=== PATIENT | male | born 1985 | race Caucasian/White ===

== ENCOUNTER → 2017-07-24 | Outpatient (CLI) | payer MEDICARE, OTHER ==
[2017-07-24 09:08] LABS: Basophils % (A) 1 %; CH 29.9; CHCM 31.5; Eosinophils # (A) 0.1 k/uL (0-0.7); Eosinophils % (A) 1 %; HCT 42.3 % (39.0-53.0); HDW 2.47; HGB 13.2 gm/dL (13.0-17.5); Luc # (Auto) 0.19; Luc % (Auto) 4; Lymphocytes # (A) 1.6 k/uL (1.0-4.8); Lymphocytes % (A) 34 %; MCH 29.9 pg (25.0-35.0); MCHC 31.3 g/dL (31.0-37.0); MCV 95.4 fL (80.0-100.0); Mean Platelet Volume 6.7; Monocytes # (A) 0.4 k/uL (0-1.0); Monocytes % (A) 8 %; Neutrophils # (A) 2.6 k/uL (1.3-7.7); Neutrophils % (A) 53 %; RBC 4.43 m/uL (4.30-5.90); RDW 14.7 % (11.5-15.5); WBC 4.9 k/uL (3.8-10.6); WBC (Perox) 4.87
[2017-07-24 11:33] LABS: ALT 70 U/L (21-72); AST 42 U/L (17-59); Alkaline Phosphatase 31 U/L (38-126); Anion Gap 6 mmol/L; Blood Urea Nitrogen 22 mg/dL (9-20); Calcium 8.7 mg/dL (8.4-10.2); Carbon Dioxide 32 mmol/L (22-30); Chloride 104 mmol/L (98-107); Cholesterol 169 mg/dL (<200); Glucose 69 mg/dL (74-99); HDL Cholesterol 23 mg/dL (40-60); Non-African American GFR(MDRD) >60 (>60 ml/min/1.73 sqM); Potassium 4.8 mmol/L (3.5-5.1); Sodium 142 mmol/L (137-145); Total Bilirubin 0.4 mg/dL (0.2-1.3); Total Protein 6.4 g/dL (6.3-8.2)
== END | disposition home or self-care (01) ==
LOC: LABWHC1 08:12
PROVIDERS: ATTEND Nurse Practitioner
DX: F31.9 Bipolar disorder, unspecified (principal); Z79.899 Other long term (current) drug therapy
CPT/HCPCS: 36415; 80053; 80061; 80164; 83036; 84439; 84443; 85025

== ENCOUNTER → 2017-11-20 | Outpatient (CLI) | payer MEDICARE, OTHER ==
--- NOTE | 2017-11-20 20:01 | ECHOF ---
Referral Reason:R06.02 Shortness of breath, R06.01 Orthopenia MEASUREMENTS -------- HEIGHT: 135.6 cm WEIGHT: 95.3 kg BP: RVIDd: 3.4 cm (< 3.3) IVSd: 1.2 cm (0.6 - 1.1) LVIDd: 3.4 cm (3.9 - 5.3) LVPWd: 1.3 cm (0.6 - 1.1) IVSs: 1.4 cm LVIDs: 3.1 cm LVPWs: 1.2 cm LA Diam: 3.2 cm (2.7 - 3.8) Ao Diam: 2.6 cm (2.0 - 3.7) AV Cusp: 1.8 cm (1.5 - 2.6) LA Diam: 3.5 cm (2.7 - 3.8) MV E Zack: 0.86 m/s MV DecT: 162 ms MV A Zack: 0.62 m/s MV E/A Ratio: 1.39 RAP: 5.00 mmHg RVSP: 14.63 mmHg FINDINGS -------- Sinus rhythm. This was a technically difficult study with suboptimal views. The left ventricular size is normal. There is mild concentric left ventricular hypertrophy. Overa ll left ventricular systolic function is low-normal with, an EF between 50 - 55 %. The right ventricle is normal in size. The left atrial size is normal. The right atrial size is normal. The aortic valve is trileaflet, and appears structurally normal. No aortic stenosis or regurgitation. Mild mitral regurgitation is present. No regurgitation noted There is no evidence of pulmonary hypertension. The right ventricular syst olic pressure, as measured by Doppler, is 14.63mmHg. The pulmonic valve was not well visualized. The aortic root size is normal. There is no pericardial effusion. CONCLUSIONS -------- 1. This was a technically difficult study with suboptimal views. 2. The left ventricular size is normal. 3. There is mild concentric left ventricular hypertrophy. 4. Overall left ventricular systolic function is low-normal with, an EF between 50 - 55 %. 5. The aortic valve is trileaflet, and appears structurally normal. No aortic stenosis or regurgitati on. 6. Mild mitral regurgitation is present. 7. No regurgitation noted 8. There is no evidence of pulmonary hypertension. 9. The right ventricular systolic pressure, as measured by Doppler, is 14.63mmHg. 10. The pulmonic valve was not well visualized. 11. The aortic root size is normal. 12. There is no pericardial effusion. [employer] SUPERVISOR: Corinna Perea RDCS
== END | disposition home or self-care (01) ==
LOC: RADECHMAIN 08:15
PROVIDERS: ATTEND Family Medicine
DX: I34.0 Nonrheumatic mitral (valve) insufficiency (principal); I51.7 Cardiomegaly
CPT/HCPCS: 93306

== ENCOUNTER 2017-11-27 09:35 | Inpatient (IN) | payer MEDICARE, OTHER ==
[2017-11-27] MEDS ORDERED: IPRATROPIUM-ALBUTEROL 3 ML NEB INHALATION STA (10:22)
[2017-11-27] MEDS ORDERED: SODIUM CHLORIDE 0.9% 1,000 ML IV STA (10:22)
[2017-11-27] MEDS ORDERED: ACETAMINOPHEN TAB 500 MG TAB PO STA (10:32)
[2017-11-27 11:01] LABS: Appearance,Urine Clear (Clear); Bilirubin,Urine Negative (Negative); Blood,Urine Negative (Negative); Color,Urine Yellow; Glucose,Urine (UA) Negative (Negative); Ketones,Urine Trace (Negative); Leukocyte Esterase,Urine Negative (Negative); Nitrite,Urine Negative (Negative); PH, Urine 5.5 (5.0-8.0); Protein,Urine Trace (Negative); Specific Gravity,Urine 1.026 (1.001-1.035)
--- NOTE | 2017-11-27 11:14 | ED ---
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 The patient has been short of breath with a cough and fever for one day. Wheezing at home. Administered an updraft. Went to [facility] and was then sent here. Pulse ox at that facility was in the low 80s as it is here. Patient presents wheezing. - Related Data Home Medications Medication Instructions Recorded Confirmed Albuterol Nebulized [Ventolin 2.5 mg INHALATION RT-TID 11/27/17 11/27/17 Nebulized] Ascorbic Acid [Vitamin C] 1,000 mg PO DAILY 11/27/17 11/27/17 Divalproex Sodium [Depakote] 1,000 mg PO HS 11/27/17 11/27/17 Fenofibrate [Lofibra] 160 mg PO DAILY 11/27/17 11/27/17 Fluticasone Propionate [Flonase 1 spray EA NOSTRIL BID 11/27/17 11/27/17 Allergy Relief] Glimepiride [Amaryl] 2 mg PO AC-BID 11/27/17 11/27/17 Levothyroxine Sodium [Synthroid] 75 mcg PO DAILY 11/27/17 11/27/17 Losartan Potassium 100 mg PO DAILY 11/27/17 11/27/17 Montelukast Sodium [Singulair] 10 mg PO DAILY 11/27/17 11/27/17 Multivitamins, Thera [Multivitamin 1 tab PO DAILY 11/27/17 11/27/17 (formulary)] [place]-3 Fatty Acids [[place]-3] 2,000 mg PO DAILY 11/27/17 11/27/17 Omeprazole [PriLOSEC] 20 mg PO DAILY 11/27/17 11/27/17 Pioglitazone [Actos] 15 mg PO DAILY 11/27/17 11/27/17 Propranolol [Inderal] 20 mg PO DAILY 11/27/17 11/27/17 Simvastatin [Zocor] 20 mg PO HS 11/27/17 11/27/17 metFORMIN HCL ER [Glucophage Xr] 1,000 mg PO DAILY 11/27/17 11/27/17 risperiDONE [RisperDAL] 0.5 mg PO HS 11/27/17 11/27/17 Allergies Allergy/AdvReac Type Severity Reaction Status Date / Time No Known Allergies Allergy Verified 11/27/17 10:24 Review of Systems ROS Statement: Those systems with pertinent positive or pertinent negative responses have been documented in the HPI. Review of systems. Due to the patient's congenital problems with Down's type syndrome. His guardian, mother, states that his answers , shouldn't be trusted. The patient does present wheezing, appears dyspneic. Past medical problems non-insulin diabetes mellitus, Saw's Silver syndrome, Down's like problems. Ear tubes and tonsils and adenoids surgery. Family history the mother had colon cancer. The patient does apparently get colonoscopies. No apparent ALLERGIES. Nonsmoker nondrinker. His guardian is now his legal mother. ROS Other: All systems not noted in ROS Statement are negative. 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 History of Any Multi-Drug Resistant Organisms: None Reported Past Surgical History: Ear Surgery Past Psychological History: No Psychological Hx Reported Smoking Status: Never smoker Past Alcohol Use History: None Reported Past Drug Use History: None Reported General Exam - General Exam Comments Initial Comments: General: The patient is awake and alert, presents with wheezing, temperature 101.4 for which she received Tylenol. Pulse 91 respiratory rate 20 pulse ox 84% room air. Blood pressure 106/57. The patient had an order written for L3. Eye: Pupils are equal, round and reactive to light, extra-ocular movements are intact ; there is normal conjunctiva bilaterally. No signs of icterus. Ears, nose, mouth and throat: There are moist mucous membranes and no oral lesions. Neck: The neck is supple, there is no tenderness, no anterior cervical lymphadenopathy. Cardiovascular: There is a regular rate and rhythm. Faint murmur, Respiratory: Wheezing, Rales appreciated right base. Gastrointestinal: Soft, non-distended, non-tender abdomen without masses or organomegaly noted. There is no rebound or guarding present. No CVA tenderness. Bowel sounds are unremarkable. Back: There is no tenderness to palpation in the midline. There is no obvious deformity. No rashes noted. Musculoskeletal: Normal ROM, no tenderness, There is no pedal edema. There is no calf tenderness or swelling. Neurological: Born with Russells Silver disorder, syndrome. Down's like, per mother's description Skin: Skin is warm and dry and no rashes or lesions are noted. Psychiatric: Cooperative, Limitations: no limitations Course Vital Signs 11/27/17 11/27/17 11/27/17 09:49 11:18 11:21 Temperature 101.4 F H Pulse Rate 91 92 Respiratory 20 Rate Blood Pressure 106/57 O2 Sat by Pulse 84 L 93 L Oximetry 11/27/17 11:28 Temperature Pulse Rate 97 Respiratory Rate Blood Pressure O2 Sat by Pulse Oximetry EKG Findings - EKG Comments: EKG Findings:: EKG was done and reviewed at 1224 showing normal sinus rhythm no acute ST elevation no ectopy. No ischemic changes appreciated. Rate 87. Eye was 152 QRS 86 QT [address] Gonzalez Medical Decision Making - Medical Decision Making This is a 31-year-old male with Down's type syndrome. Here with his guardian adopted mother. Patient presents because of fever and shortness of breath, with wheezing. History of asthma per mother. Labs show white count of 5.7 hemoglobin 12 hematocrit 39. D-dimer 0.54, potassium 4.5, BUN 29 creatinine 1.1 the GFR greater than 90. AST ALT both elevated. CK elevated at 1386 but a troponin less than 0.012. Influenza A and B reported to be negative. Urinalysis normal no signs of infection. BNP, reported to be 34. Chest x-ray was done AP and lateral view and reviewed by radiologist his findings are there is no focal airspace opacity, pleural effusion, or pneumothorax seen. Cardiac silhouette size is enlarged. There is bronchial wall thickening. Central vascularity is prominent. The osseous structures are intact. Impression cardiomegaly, correlate to exclude pulmonary venous hypertension and early interstitial edema. There may be underlying bronchitis, reactive airway disease. Follow-up suggested. As read by Dr. Malone The patient did have an echo done on because of shortness of breath. The report was reviewed. And the significant findings include this was a technically difficult study with suboptimal views. The left ventricular size is normal. There is mild concentric left ventricular hypertrophy. Overall left ventricular systolic function is low normal with an EF between 1555%. The right ventricle is normal in size. The left atrial size is normal. Right atrial size is normal. The aortic valve is trileaflet, and appears structurally normal. No aortic stenosis or regurgitation. Mild mitral regurgitation is present. No regurgitation noted. There is no evidence of pulmonary hypertension. The right ventricular systolic pressure, as measured by Doppler, is 14.63 mmHg. The pulmonic valve was not well visualized. The aortic root size is normal. There is no pericardial effusion. Dictated by Dr. YUE Carter. I discussed the case with Dr. chaney none. Patient be admitted his service with cardiology consultation. The patient will be continued on Lasix and started on Levaquin for possible early pneumonic changes. - Lab Data Result diagrams: 11/27/17 11:05 11/27/17 11:05 Lab Results 11/27/17 11/27/17 11/27/17 Range/Units 10:40 11:05 11:05 WBC 5.7 (3.8-10.6) k/uL RBC 4.38 (4.30-5.90) m/uL Hgb 12.6 L (13.0-17.5) gm/dL Hct 39.9 (39.0-53.0) % MCV 91.3 (80.0-100.0) fL MCH 28.8 (25.0-35.0) pg MCHC 31.6 (31.0-37.0) g/dL RDW 13.8 (11.5-15.5) % Plt Count 172 (150-450) k/uL Neutrophils % (Manual) 43 % Band Neutrophils % 1 % Lymphocytes % (Manual) 43 % Monocytes % (Manual) 12 % Eosinophils % (Manual) 1 % Neutrophils # (Manual) 2.50 (1.3-7.7) k/uL Lymphocytes # (Manual) 2.45 (1.0-4.8) k/uL Monocytes # (Manual) 0.68 (0-1.0) k/uL Eosinophils # (Manual) 0.06 (0-0.7) k/uL Nucleated RBCs 0 (0-0) /100 WBC Manual Slide Review Performed Poikilocytosis (manual Present PT (9.0-12.0) sec INR (<1.2) APTT (22.0-30.0) sec D-Dimer (<0.60) mg/L FEU Sodium (137-145) mmol/L Potassium (3.5-5.1) mmol/L Chloride (98-107) mmol/L Carbon Dioxide (22-30) mmol/L Anion Gap mmol/L BUN (9-20) mg/dL Creatinine (0.66-1.25) mg/dL Est GFR (CKD-EPI)AfAm (>60 ml/min/1.73 sqM) Est GFR (CKD-EPI)NonAf (>60 ml/min/1.73 sqM) Glucose (74-99) mg/dL Calcium (8.4-10.2) mg/dL Magnesium (1.6-2.3) mg/dL Total Bilirubin (0.2-1.3) mg/dL AST (17-59) U/L ALT (21-72) U/L Alkaline Phosphatase (38-126) U/L Total Creatine Kinase 1386 H (55-170) U/L CK-MB (CK-2) 0.7 (0.0-2.4) ng/mL CK-MB (CK-2) Rel Index 0.1 Troponin I <0.012 (0.000-0.034) ng/mL NT-Pro-B Natriuret Pep pg/mL Total Protein (6.3-8.2) g/dL Albumin (3.5-5.0) g/dL Urine Color Yellow Urine Appearance Clear (Clear) Urine pH 5.5 (5.0-8.0) Ur Specific [place] 1.026 (1.001-1.035) Urine Protein Trace H (Negative) Urine Glucose (UA) Negative (Negative) Urine Ketones Trace H (Negative) Urine Blood Negative (Negative) Urine Nitrite Negative (Negative) Urine Bilirubin Negative (Negative) Urine Urobilinogen 3.0 (<2.0) mg/dL Ur Leukocyte Esterase Negative (Negative) Influenza Type A RNA (Not Detectd) Influenza Type B (PCR) (Not Detectd) 11/27/17 11/27/17 11/27/17 Range/Units 11:05 11:05 11:05 WBC (3.8-10.6) k/uL RBC (4.30-5.90) m/uL Hgb (13.0-17.5) gm/dL Hct (39.0-53.0) % MCV (80.0-100.0) fL MCH (25.0-35.0) pg MCHC (31.0-37.0) g/dL RDW (11.5-15.5) % Plt Count (150-450) k/uL Neutrophils % (Manual) % Band Neutrophils % % Lymphocytes % (Manual) % Monocytes % (Manual) % Eosinophils % (Manual) % Neutrophils # (Manual) (1.3-7.7) k/uL Lymphocytes # (Manual) (1.0-4.8) k/uL Monocytes # (Manual) (0-1.0) k/uL Eosinophils # (Manual) (0-0.7) k/uL Nucleated RBCs (0-0) /100 WBC Manual Slide Review Poikilocytosis (manual PT 9.8 (9.0-12.0) sec INR 1.0 (<1.2) APTT 29.3 (22.0-30.0) sec D-Dimer 0.54 (<0.60) mg/L FEU Sodium 141 (137-145) mmol/L Potassium 4.5 (3.5-5.1) mmol/L Chloride 99 (98-107) mmol/L Carbon Dioxide 29 (22-30) mmol/L Anion Gap 13 mmol/L BUN 29 H (9-20) mg/dL Creatinine 1.10 (0.66-1.25) mg/dL Est GFR (CKD-EPI)AfAm >90 (>60 ml/min/1.73 sqM) Est GFR (CKD-EPI)NonAf >90 (>60 ml/min/1.73 sqM) Glucose 102 H (74-99) mg/dL Calcium 8.6 (8.4-10.2) mg/dL Magnesium 2.0 (1.6-2.3) mg/dL Total Bilirubin 0.3 (0.2-1.3) mg/dL AST 123 H (17-59) U/L ALT 89 H (21-72) U/L Alkaline Phosphatase 32 L (38-126) U/L Total Creatine Kinase (55-170) U/L CK-MB (CK-2) (0.0-2.4) ng/mL CK-MB (CK-2) Rel Index Troponin I (0.000-0.034) ng/mL NT-Pro-B Natriuret Pep 34 pg/mL Total Protein 6.3 (6.3-8.2) g/dL Albumin 3.4 L (3.5-5.0) g/dL Urine Color Urine Appearance (Clear) Urine pH (5.0-8.0) Ur Specific [place] (1.001-1.035) Urine Protein (Negative) Urine Glucose (UA) (Negative) Urine Ketones (Negative) Urine Blood (Negative) Urine Nitrite (Negative) Urine Bilirubin (Negative) Urine Urobilinogen (<2.0) mg/dL Ur Leukocyte Esterase (Negative) Influenza Type A RNA (Not Detectd) Influenza Type B (PCR) (Not Detectd) 11/27/17 Range/Units 11:05 WBC (3.8-10.6) k/uL RBC (4.30-5.90) m/uL Hgb (13.0-17.5) gm/dL Hct (39.0-53.0) % MCV (80.0-100.0) fL MCH (25.0-35.0) pg MCHC (31.0-37.0) g/dL RDW (11.5-15.5) % Plt Count (150-450) k/uL Neutrophils % (Manual) % Band Neutrophils % % Lymphocytes % (Manual) % Monocytes % (Manual) % Eosinophils % (Manual) % Neutrophils # (Manual) (1.3-7.7) k/uL Lymphocytes # (Manual) (1.0-4.8) k/uL Monocytes # (Manual) (0-1.0) k/uL Eosinophils # (Manual) (0-0.7) k/uL Nucleated RBCs (0-0) /100 WBC Manual Slide Review Poikilocytosis (manual PT (9.0-12.0) sec INR (<1.2) APTT (22.0-30.0) sec D-Dimer (<0.60) mg/L FEU Sodium (137-145) mmol/L Potassium (3.5-5.1) mmol/L Chloride (98-107) mmol/L Carbon Dioxide (22-30) mmol/L Anion Gap mmol/L BUN (9-20) mg/dL Creatinine (0.66-1.25) mg/dL Est GFR (CKD-EPI)AfAm (>60 ml/min/1.73 sqM) Est GFR (CKD-EPI)NonAf (>60 ml/min/1.73 sqM) Glucose (74-99) mg/dL Calcium (8.4-10.2) mg/dL Magnesium (1.6-2.3) mg/dL Total Bilirubin (0.2-1.3) mg/dL AST (17-59) U/L ALT (21-72) U/L Alkaline Phosphatase (38-126) U/L Total Creatine Kinase (55-170) U/L CK-MB (CK-2) (0.0-2.4) ng/mL CK-MB (CK-2) Rel Index Troponin I (0.000-0.034) ng/mL NT-Pro-B Natriuret Pep pg/mL Total Protein (6.3-8.2) g/dL Albumin (3.5-5.0) g/dL Urine Color Urine Appearance (Clear) Urine pH (5.0-8.0) Ur Specific [place] (1.001-1.035) Urine Protein (Negative) Urine Glucose (UA) (Negative) Urine Ketones (Negative) Urine Blood (Negative) Urine Nitrite (Negative) Urine Bilirubin (Negative) Urine Urobilinogen (<2.0) mg/dL Ur Leukocyte Esterase (Negative) Influenza Type A RNA Not Detected (Not Detectd) Influenza Type B (PCR) Not Detected (Not Detectd) Disposition Clinical Impression: Reactive airway disease, Bronchitis, Dyspnea Disposition: ADMITTED IP TO THIS HOSP Condition: Serious Referrals: Domingo Brooks III, MD [Primary Care Provider] - 1-2 days
[2017-11-27 11:23] LABS: HCT 39.9 % (39.0-53.0); HGB 12.6 gm/dL (13.0-17.5); MCH 28.8 pg (25.0-35.0); MCHC 31.6 g/dL (31.0-37.0); MCV 91.3 fL (80.0-100.0); Mean Platelet Volume 7.6; Platelet Count 172 k/uL (150-450); RBC 4.38 m/uL (4.30-5.90); RDW 13.8 % (11.5-15.5); WBC 5.7 k/uL (3.8-10.6)
[2017-11-27 11:30] LABS: ALT 89 U/L (21-72); AST 123 U/L (17-59); Albumin 3.4 g/dL (3.5-5.0); Alkaline Phosphatase 32 U/L (38-126); Anion Gap 13 mmol/L; Blood Urea Nitrogen 29 mg/dL (9-20); Calcium 8.6 mg/dL (8.4-10.2); Carbon Dioxide 29 mmol/L (22-30); Chloride 99 mmol/L (98-107); Glucose 102 mg/dL (74-99); Potassium 4.5 mmol/L (3.5-5.1); Sodium 141 mmol/L (137-145); Total Bilirubin 0.3 mg/dL (0.2-1.3); Total Protein 6.3 g/dL (6.3-8.2)
[2017-11-27 11:33] LABS: D-Dimer 0.54 mg/L FEU (<0.60)
[2017-11-27 11:37] LABS: Partial Thromboplastin Time 29.3 sec (22.0-30.0); Prothrombin Time 9.8 sec (9.0-12.0)
[2017-11-27 11:44] LABS: Creatine Kinase 1386 U/L (55-170)
[2017-11-27 11:53] LABS: Creatine Kinase MB 0.7 ng/mL (0.0-2.4); Troponin I <0.012 ng/mL (0.000-0.034)
--- NOTE | 2017-11-27 11:55 | XR ---
EXAMINATION TYPE: XR chest 2V DATE OF EXAM: 11/27/2017 COMPARISON: CT abdomen pelvis 06/01/2015 HISTORY: Difficulty breathing, cough TECHNIQUE: Frontal and lateral views of the chest are obtained on 3 images. FINDINGS: There is no focal air space opacity, pleural effusion, or pneumothorax seen. The cardiac silhouette size is enlarged. There is bronchial wall thickening. Central vascularity is prominent. The osseous structures are intact. IMPRESSION: Cardiomegaly. Correlate to exclude pulmonary venous hypertension and early interstitial edema. There may be underlying bronchitis, reactive airways disease. Follow-up suggested.
[2017-11-27] MEDS ORDERED: FUROSEMIDE 10 MG/ML 4 ML VIAL IV STA (12:08)
[2017-11-27 12:18] LABS: Band Neutrophils % 1 %; Eosinophils # (M) 0.06 k/uL (0-0.7); Lymphocytes # (M) 2.45 k/uL (1.0-4.8); Monocytes # (M) 0.68 k/uL (0-1.0); Neutrophils % (M) 43 %; Nucleated Red Blood Cells 0 /100 WBC (0-0); Total Cells Counted 100
[2017-11-27 12:19] LABS: Poikilocytosis (M) Present
[2017-11-27] MEDS ORDERED: LEVOFLOXACIN 500MG-D5W PMX 500 MG in DEXTROSE/WATER 1 100ML.BAG IVPB STA (12:52)
[2017-11-27] MEDS ORDERED: NALOXONE 0.4 MG/ML 1 ML VIAL IV PRN (12:59)
[2017-11-27] MEDS ORDERED: ACETAMINOPHEN TAB 325 MG TAB PO PRN (12:59)
[2017-11-27] MEDS ORDERED: methylPREDNISolone SOD SUCCI 125 MG/2 ML VIAL IV SCH (13:00)
[2017-11-27] MEDS ORDERED: IPRATROPIUM-ALBUTEROL 3 ML NEB INHALATION PRN (13:04)
--- NOTE | 2017-11-27 16:06 | P.HPIM ---
History of Present Illness 31-year-old gentleman with history of Saw-Silver syndrome came in with complaints of shortness of breath cough-like symptoms although influenza PCR is negative coughing and wheezing. Patient has diffuse infiltrate although patient doesn't have any elevated BNP. Clinically does not appear to have CHF. Patient was comparing of cough with clear sputum production. But suggestive and the patient. Although his symptoms has been going on for couple days. Review of Systems REVIEW OF SYSTEMS: CONSTITUTIONAL: As mentioned in HPI HEENT: No recent visual problems or hearing problems. Denied any sore throat. CARDIOVASCULAR: No chest pain, orthopnea, PND, no palpitations, no syncope. PULMONARY: As mentioned in HPI GASTROINTESTINAL: No diarrhea, no nausea, no vomiting, no abdominal pain. Normoactive bowel sounds. NEUROLOGICAL: No headaches, no weakness, no numbness. HEMATOLOGICAL: Denies any bleeding or petechiae. GENITOURINARY: Denies any burning micturition, frequency, or urgency. MUSCULOSKELETAL/RHEUMATOLOGICAL: Denies any joint pain, swelling, or any muscle pain. ENDOCRINE: Denies any polyuria or polydipsia. The rest of the 14-point review of systems is negative. 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 History of Any Multi-Drug Resistant Organisms: None Reported Past Surgical History: Ear Surgery Past Psychological History: No Psychological Hx Reported Smoking Status: Never smoker Past Alcohol Use History: None Reported Past Drug Use History: None Reported Medications and Allergies Home Medications Medication Instructions Recorded Confirmed Type Albuterol Nebulized [Ventolin 2.5 mg INHALATION RT-TID 11/27/17 11/27/17 History Nebulized] Ascorbic Acid [Vitamin C] 1,000 mg PO DAILY 11/27/17 11/27/17 History Divalproex Sodium [Depakote] 1,000 mg PO HS 11/27/17 11/27/17 History Fenofibrate [Lofibra] 160 mg PO DAILY 11/27/17 11/27/17 History Fluticasone Propionate [Flonase 1 spray EA NOSTRIL BID 11/27/17 11/27/17 History Allergy Relief] Glimepiride [Amaryl] 2 mg PO AC-BID 11/27/17 11/27/17 History Levothyroxine Sodium [Synthroid] 75 mcg PO DAILY 11/27/17 11/27/17 History Losartan Potassium 100 mg PO DAILY 11/27/17 11/27/17 History Montelukast Sodium [Singulair] 10 mg PO DAILY 11/27/17 11/27/17 History Multivitamins, Thera [Multivitamin 1 tab PO DAILY 11/27/17 11/27/17 History (formulary)] [place]-3 Fatty Acids [[place]-3] 2,000 mg PO DAILY 11/27/17 11/27/17 History Omeprazole [PriLOSEC] 20 mg PO DAILY 11/27/17 11/27/17 History Pioglitazone [Actos] 15 mg PO DAILY 11/27/17 11/27/17 History Propranolol [Inderal] 20 mg PO DAILY 11/27/17 11/27/17 History Simvastatin [Zocor] 20 mg PO HS 11/27/17 11/27/17 History metFORMIN HCL ER [Glucophage Xr] 1,000 mg PO DAILY 11/27/17 11/27/17 History risperiDONE [RisperDAL] 0.5 mg PO HS 11/27/17 11/27/17 History Allergies Allergy/AdvReac Type Severity Reaction Status Date / Time No Known Allergies Allergy Verified 11/27/17 10:24 Physical Exam Vitals: Vital Signs Temp Pulse Resp BP Pulse Ox 11/27/17 15:54 97.0 F L 82 18 130/76 93 L 11/27/17 13:34 80 18 93 L 11/27/17 11:28 97 11/27/17 11:21 93 L 11/27/17 11:18 92 11/27/17 09:49 101.4 F H 91 20 106/57 84 L Intake and Output 11/27/17 11/27/17 11/27/17 06:59 14:59 22:59 Other: Weight 95.254 kg PHYSICAL EXAMINATION: GENERAL: The patient alert and unable to his orientation does talk HEENT: Pupils are round and equally reacting to light. EOMI. No scleral icterus. No conjunctival pallor. Normocephalic, atraumatic. No pharyngeal erythema. No thyromegaly. CARDIOVASCULAR: S1 and S2 present. No murmurs, rubs, or gallops. PULMONARY: Bibasilar crackles are appreciated or significant expiratory wheezing was appreciated bilaterally ABDOMEN: Soft, nontender, nondistended, normoactive bowel sounds. No palpable organomegaly. MUSCULOSKELETAL: No joint swelling or deformity. EXTREMITIES: No cyanosis, clubbing, or pedal edema. NEUROLOGICAL: Gross neurological examination did not reveal any focal deficits. SKIN: No rashes. Results CBC & Chem 7: 11/27/17 11:05 11/27/17 11:05 Labs: Abnormal Lab Results - Last 24 Hours (Table) 11/27/17 11/27/17 11/27/17 Range/Units 10:40 11:05 11:05 Hgb 12.6 L (13.0-17.5) gm/dL BUN (9-20) mg/dL Glucose (74-99) mg/dL AST (17-59) U/L ALT (21-72) U/L Alkaline Phosphatase (38-126) U/L Total Creatine Kinase 1386 H (55-170) U/L Albumin (3.5-5.0) g/dL Urine Protein Trace H (Negative) Urine Ketones Trace H (Negative) 11/27/17 Range/Units 11:05 Hgb (13.0-17.5) gm/dL BUN 29 H (9-20) mg/dL Glucose 102 H (74-99) mg/dL AST 123 H (17-59) U/L ALT 89 H (21-72) U/L Alkaline Phosphatase 32 L (38-126) U/L Total Creatine Kinase (55-170) U/L Albumin 3.4 L (3.5-5.0) g/dL Urine Protein (Negative) Urine Ketones (Negative) Assessment and Plan Plan: 1 acute hypoxic respiratory failure: Secondary to possible while bronchitis or pneumonia although atypical pneumonia cannot be ruled out along with the asthma exacerbation patient is on systemic steroids inhalational treatments and patient was started on levofloxacin. Influenza testing was negative. -Possibly of atypical pneumonia or viral pneumonia -Type 2 diabetes mellitus blood sugars are expected to go up patient will be started back on his regimen except for metformin along with the sliding scale insulin for him systemic steroids -Elevated liver enzymes repeat liver enzymes tomorrow and elevated CK secondary to infection as mentioned above
[2017-11-27] MEDS: GLIMEPIRIDE 2 MG TAB PO SCH (16:47)
[2017-11-27] MEDS: FUROSEMIDE 10 MG/ML 2 ML VIAL IV SCH ×2 (16:47→22:30)
[2017-11-27] MEDS: SODIUM CHLORIDE 0.9% 1,000 ML IV SCH (16:47)
--- NOTE | 2017-11-27 17:05 | P.CNPUL ---
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 The patient has increased cough. He is having some increased difficulty breathing. No reported fever chills or night sweats. Most of the information is obtained from the guardian. No family is available. The patient's influenza screen for a and B was negative. The patient had a chest x-ray that showed breath and pulmonary infiltrates with increased interstitial pattern. Known history of any congestion heart failure. No valvular heart disease. No history of congenital heart disease. No swelling in the lower extremities. No leukocytosis and the white cell count is at 5.7. Rest of the blood work and electrodes are all within normal limits. The CPK is mildly elevated at 1386. The troponin is negative. EKG showing a normal sinus rhythm. The patient is still interactive. His communicating. He is pleasant and on and off laughing. He was placed on IV Lasix. He was also placed on IV Solu-Medrol. He was placed on empiric antibiotic coverage with Levaquin. He is also on DuoNeb neb last treatment [id number]. He will be moved to the medical floor. Patient was desaturating and his pulse ox was dropping below 90% and currently is on oxygen at 3 L/m nasal cannula. Review of Systems Unable to obtain a full review of system. Obvious the patient has underlying mental retardation and he is syndromic. Positive findings are all mentioned above in history of present illness. ROS unobtainable: due to mental status Past Medical History Past Medical History: Diabetes Mellitus Additional Past Medical History / Comment(s): Saw silver syndrome , obesity , mental retardation, diabetes mellitus, hyperlipidemia, acid reflux, hypothyroidism, obesity History of Any Multi-Drug Resistant Organisms: None Reported Past Surgical History: Ear Surgery Past Anesthesia/Blood Transfusion Reactions: Previous Problems w/ Anesthesia Additional Past Anesthesia/Blood Transfusion Reaction / Comment(s): has clausterphobia. Smoking Status: Never smoker - Past Family History Father History Unknown: Yes Mother History Unknown: Yes Medications and Allergies Home Medications Medication Instructions Recorded Confirmed Type Albuterol Nebulized [Ventolin 2.5 mg INHALATION RT-TID 11/27/17 11/27/17 History Nebulized] Ascorbic Acid [Vitamin C] 1,000 mg PO DAILY 11/27/17 11/27/17 History Divalproex Sodium [Depakote] 1,000 mg PO HS 11/27/17 11/27/17 History Fenofibrate [Lofibra] 160 mg PO DAILY 11/27/17 11/27/17 History Fluticasone Propionate [Flonase 1 spray EA NOSTRIL BID 11/27/17 11/27/17 History Allergy Relief] Glimepiride [Amaryl] 2 mg PO AC-BID 11/27/17 11/27/17 History Levothyroxine Sodium [Synthroid] 75 mcg PO DAILY 11/27/17 11/27/17 History Losartan Potassium 100 mg PO DAILY 11/27/17 11/27/17 History Montelukast Sodium [Singulair] 10 mg PO DAILY 11/27/17 11/27/17 History Multivitamins, Thera [Multivitamin 1 tab PO DAILY 11/27/17 11/27/17 History (formulary)] Mc[facility] [place]-3 Fatty Acids [Mcbh [place]-3] 2,000 mg PO DAILY 11/27/17 11/27/17 History Omeprazole [PriLOSEC] 20 mg PO DAILY 11/27/17 11/27/17 History Pioglitazone [Actos] 15 mg PO DAILY 11/27/17 11/27/17 History Propranolol [Inderal] 20 mg PO DAILY 11/27/17 11/27/17 History Simvastatin [Zocor] 20 mg PO HS 11/27/17 11/27/17 History metFORMIN HCL ER [Glucophage Xr] 1,000 mg PO DAILY 11/27/17 11/27/17 History risperiDONE [RisperDAL] 0.5 mg PO HS 11/27/17 11/27/17 History Allergies Allergy/AdvReac Type Severity Reaction Status Date / Time No Known Allergies Allergy Verified 11/27/17 10:24 Physical Exam Vitals: Vital Signs Temp Pulse Pulse Resp BP BP Pulse Ox 11/27/17 16:19 100.1 F H 89 20 123/58 92 L 11/27/17 15:54 97.0 F L 82 18 130/76 93 L 11/27/17 13:34 80 18 93 L 11/27/17 11:28 97 11/27/17 11:21 93 L 11/27/17 11:18 92 11/27/17 09:49 101.4 F H 91 20 106/57 84 L Intake and Output 11/27/17 11/27/17 11/27/17 06:59 14:59 22:59 Other: Weight 95.254 kg GENERAL: The patient alert and unable to his orientation does talk, he has underlying mental retardation. Cannot obtain useful information from the patient. No signs of any apparent reading distress. He is still active and does not look lethargic. HEENT: Pupils are round and equally reacting to light. EOMI. No scleral icterus. No conjunctival pallor. Normocephalic, atraumatic. No pharyngeal erythema. No thyromegaly. CARDIOVASCULAR: S1 and S2 present. No murmurs, rubs, or gallops. PULMONARY: Bibasilar crackles are appreciated or significant expiratory wheezing was appreciated bilaterally ABDOMEN: Soft, nontender, nondistended, normoactive bowel sounds. No palpable organomegaly. MUSCULOSKELETAL: No joint swelling or deformity. EXTREMITIES: No cyanosis, clubbing, or pedal edema. NEUROLOGICAL: Gross neurological examination did not reveal any focal deficits. SKIN: No rashes. Results - Laboratory Findings CBC and BMP: 11/27/17 11:05 11/27/17 11:05 PT/INR, D-dimer PT 9.8 sec (9.0-12.0) 11/27/17 11:05 INR 1.0 (<1.2) 11/27/17 11:05 D-Dimer 0.54 mg/L FEU (<0.60) 11/27/17 11:05 Abnormal lab findings: Abnormal Labs 11/27/17 11/27/17 11/27/17 10:40 11:05 11:05 Hgb 12.6 L BUN Glucose AST ALT Alkaline Phosphatase Total Creatine Kinase 1386 H Albumin Urine Protein Trace H Urine Ketones Trace H 11/27/17 11:05 Hgb BUN 29 H Glucose 102 H AST 123 H ALT 89 H Alkaline Phosphatase 32 L Total Creatine Kinase Albumin 3.4 L Urine Protein Urine Ketones - Diagnostic Findings Chest x-ray: image reviewed Assessment and Plan Plan: Assessment 1 acute hypoxic respiratory failure 2 acute bilateral pulmonary infiltrates. Rule out viral pneumonia. Rule out atypical pneumonia. Rule out underlying heart disease with a component of cardiogenic pulmonary edema 3 Saw silver syndrome 4 obesity. 5 hypothyroidism 6 hypertension 7 hyperlipidemia 8 diabetes mellitus type 2 9 mental retardation 10 mild rhabdomyolysis 11 mild transaminitis Plan Obtain sputum Gram stain and culture if possible. Empiric antibiotic coverage with Levaquin. DuoNeb neb treatments around the clock. IV Solu Medrol 40 every 8. Resume outpatient medication. Monitor chest x-ray findings. Monitor oxygenation. We'll continue to follow. Echocardiogram will be needed to assess for any congenital heart disease for any signs of heart failure being left or right-sided.
[2017-11-27] MEDS: INSULIN ASPART 100 UNIT/ML 1 ML 10 ML VIAL SQ SCH ×2 (17:29→20:55)
[2017-11-27 17:30] LABS: Glucose,Whole Blood 98 mg/dL (75-99)
[2017-11-27 20:25] LABS: Glucose,Whole Blood 283 mg/dL (75-99)
[2017-11-27] MEDS ORDERED: INSULIN ASPART 100 UNIT/ML 1 ML 10 ML VIAL SQ ONE (20:43)
[2017-11-27] MEDS: DIVALPROEX 500 MG TABLET.DR PO SCH (20:56)
[2017-11-27] MEDS: ATORVASTATIN 10 MG TAB PO SCH (20:56)
[2017-11-27] MEDS: risperiDONE 0.5 MG TAB PO SCH (20:56)
[2017-11-27] MEDS: methylPREDNISolone SOD SUCCI 40 MG/ML 1 ML VIAL IV SCH (20:57)
[2017-11-28] MEDS: LEVOTHYROXINE 75 MCG TAB PO SCH (06:23)
[2017-11-28] MEDS: IPRATROPIUM-ALBUTEROL 3 ML NEB INHALATION PRN (06:41)
[2017-11-28 06:58] LABS: Glucose,Whole Blood 265 mg/dL (75-99)
[2017-11-28] MEDS ORDERED: metFORMIN 500 MG TAB PO SCH (07:30)
[2017-11-28] MEDS: FUROSEMIDE 10 MG/ML 2 ML VIAL IV SCH ×2 (07:42→16:21)
[2017-11-28] MEDS: SODIUM CHLORIDE 0.9% 1,000 ML IV SCH ×2 (07:42→12:02)
[2017-11-28] MEDS: methylPREDNISolone SOD SUCCI 40 MG/ML 1 ML VIAL IV SCH ×2 (07:42→21:16)
[2017-11-28] MEDS: PANTOPRAZOLE 40 MG TABLET PO SCH (07:44)
[2017-11-28] MEDS: GLIMEPIRIDE 2 MG TAB PO SCH ×2 (07:44→17:10)
[2017-11-28] MEDS: INSULIN ASPART 100 UNIT/ML 1 ML 10 ML VIAL SQ SCH ×4 (07:45→21:40)
[2017-11-28 08:34] LABS: ALT 74 U/L (21-72); AST 71 U/L (17-59); Albumin 3.4 g/dL (3.5-5.0); Alkaline Phosphatase 34 U/L (38-126); Anion Gap 13 mmol/L; Blood Urea Nitrogen 38 mg/dL (9-20); Carbon Dioxide 34 mmol/L (22-30); Chloride 94 mmol/L (98-107); Glucose 261 mg/dL (74-99); Potassium 4.2 mmol/L (3.5-5.1); Sodium 141 mmol/L (137-145); Total Bilirubin 0.3 mg/dL (0.2-1.3); Total Protein 6.2 g/dL (6.3-8.2)
[2017-11-28 08:53] LABS: HCT 38.5 % (39.0-53.0); HGB 13.1 gm/dL (13.0-17.5); MCH 31.2 pg (25.0-35.0); MCHC 34.1 g/dL (31.0-37.0); MCV 91.5 fL (80.0-100.0); Mean Platelet Volume 7.3; Platelet Count 142 k/uL (150-450); RBC 4.21 m/uL (4.30-5.90); RDW 13.3 % (11.5-15.5); WBC 4.6 k/uL (3.8-10.6)
[2017-11-28] MEDS: LOSARTAN 50 MG TAB PO SCH (08:58)
[2017-11-28] MEDS: FENOFIBRATE 160 MG TAB PO SCH (08:58)
[2017-11-28] MEDS: PIOGLITAZONE 15 MG TAB PO SCH (08:59)
[2017-11-28] MEDS ORDERED: PROPRANOLOL 20 MG TAB PO SCH (09:00)
[2017-11-28] MEDS ORDERED: PANTOPRAZOLE 40 MG/10 ML VIAL IV SCH (09:00)
--- NOTE | 2017-11-28 10:49 | XR ---
EXAMINATION TYPE: XR chest 1V DATE OF EXAM: 11/28/2017 COMPARISON: 11/27/2017 HISTORY: Chest pain TECHNIQUE: Single frontal view of the chest is obtained. FINDINGS: The degree of inspiration is limiting. There is evidence of cardiomegaly. Left perihilar patchy densi ty is noted which may reflect underlying infiltrate. Correlate clinically progress studies are advise d. IMPRESSION: 1. I cannot exclude developing left perihilar infiltrate. Correlate clinically.
[2017-11-28 10:57] LABS: Band Neutrophils % 9 %; Lymphocytes # (M) 1.29 k/uL (1.0-4.8); Metamyelocytes # (M) 0.05 k/uL (0); Metamyelocytes % 1 %; Monocytes # (M) 0.51 k/uL (0-1.0); Neutrophils % (M) 52 %; Nucleated Red Blood Cells 0 /100 WBC (0-0); Total Cells Counted 200
[2017-11-28 11:10] LABS: Glucose,Whole Blood 388 mg/dL (75-99)
--- NOTE | 2017-11-28 11:44 | ECHOF ---
Referral Reason:Assess LV Fx MEASUREMENTS -------- HEIGHT: 134.6 cm WEIGHT: 95.3 kg BP: 120/59 IVSd: 1.1 cm (0.6 - 1.1) LVIDd: 4.6 cm (3.9 - 5.3) LVPWd: 1.0 cm (0.6 - 1.1) IVSs: 1.2 cm LVIDs: 2.6 cm LVPWs: 1.2 cm Ao Diam: 2.3 cm (2.0 - 3.7) AV Cusp: 1.6 cm (1.5 - 2.6) LA Diam: 2.9 cm (2.7 - 3.8) FINDINGS -------- Sinus rhythm. This was a technically difficult study with suboptimal views. Limited Study for assessment of left ventricular function. The left ventricular size is normal. Left ventricular wall thickness is normal. Overall left vent ricular systolic function is normal with, an EF between 55 - 60 %. 3ml of Lumason was utilized for enhancement of images. CONCLUSIONS -------- 1. Sinus rhythm. 2. This was a technically difficult study with suboptimal views. 3. Limited Study for assessment of left ventricular function. 4. The left ventricular size is normal. 5. Left ventricular wall thickness is normal. 6. Overall left ventricular systolic function is normal with, an EF between 55 - 60 %. 7. 3ml of Lumason was utilized for enhancement of images. EMERGENCY MEDICAL DISPATCHER: Seth Agarwal RDCS
[2017-11-28] MEDS ORDERED: INSULIN ASPART 100 UNIT/ML 1 ML 10 ML VIAL SQ ONE ×2 (11:48→17:46)
--- NOTE | 2017-11-28 12:14 | P.PN ---
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 The patient has increased cough. He is having some increased difficulty breathing. No reported fever chills or night sweats. Most of the information is obtained from the guardian. No family is available. The patient's influenza screen for a and B was negative. The patient had a chest x-ray that showed breath and pulmonary infiltrates with increased interstitial pattern. Known history of any congestion heart failure. No valvular heart disease. No history of congenital heart disease. No swelling in the lower extremities. No leukocytosis and the white cell count is at 5.7. Rest of the blood work and electrodes are all within normal limits. The CPK is mildly elevated at 1386. The troponin is negative. EKG showing a normal sinus rhythm. The patient is still interactive. His communicating. He is pleasant and on and off laughing. He was placed on IV Lasix. He was also placed on IV Solu-Medrol. He was placed on empiric antibiotic coverage with Levaquin. He is also on DuoNeb neb last treatment [id number]. He will be moved to the medical floor. Patient was desaturating and his pulse ox was dropping below 90% and currently is on oxygen at 3 L/m nasal cannula. On today's evaluation of 11/28/2017 the patient is being seen for a follow-up. The patient remains on oxygen at 4 L of oxygen by nasal cannula. A repeat chest x-ray was done. It was a poor respiratory film. There was evidence of cardiomegaly. There is also evidence of left perihilar patchy density which may reflect an underlying infiltrate or developing pneumonia. The patient is less focused spastic and wheezy compared to yesterday. The patient is afebrile. The patient is tolerating his diet. No aspiration. He is very happy and interactive. He has a congested cough. Unable to bring up much sputum. Denies having any chest pain. He is ambulating. The echocardiogram was also done. It was a technically difficult study for assessment of the left ventricular function. The patient's ejection fraction was 55-60%. Valves cannot be accurately seen. The patient currently is on Levaquin. The patient is also on Lasix 20 mg IV 3 times a day. The patient is on DuoNeb nebulized she was around the clock. The patient is on IV Solu Medrol 40 mg every 12 hours. Objective - Vital Signs Vital signs: Vital Signs Temp 98.6 F 11/28/17 08:00 Pulse 91 11/28/17 08:01 Resp 26 H 11/28/17 08:01 BP 132/58 11/28/17 08:00 Pulse Ox 91 L 11/28/17 08:00 Intake & Output 11/27/17 11/28/17 11/28/17 18:59 06:59 18:59 Intake Total 500 Balance 500 Weight 95.254 kg Intake: Intake, IV Titration 500 Amount Sodium Chloride 0.9% 1, 500 000 ml @ 50 mls/hr IV . Q20H [facility] Rx#:[id number] Other: Voiding Method Toilet # Voids 3 - Exam GENERAL: The patient alert and unable to his orientation does talk, he has underlying mental retardation. Cannot obtain useful information from the patient. No signs of any apparent reading distress. He is still active and does not look lethargic. HEENT: Pupils are round and equally reacting to light. EOMI. No scleral icterus. No conjunctival pallor. Normocephalic, atraumatic. No pharyngeal erythema. No thyromegaly. CARDIOVASCULAR: S1 and S2 present. No murmurs, rubs, or gallops. PULMONARY: Bibasilar crackles are appreciated or significant expiratory wheezing was appreciated bilaterally ABDOMEN: Soft, nontender, nondistended, normoactive bowel sounds. No palpable organomegaly. MUSCULOSKELETAL: No joint swelling or deformity. EXTREMITIES: No cyanosis, clubbing, or pedal edema. NEUROLOGICAL: Gross neurological examination did not reveal any focal deficits. SKIN: No rashes. - Labs CBC & Chem 7: 11/28/17 07:40 11/28/17 07:40 Labs: Abnormal Lab Results - Last 24 Hours (Table) 11/27/17 11/28/17 11/28/17 Range/Units 20:20 06:55 07:40 RBC 4.21 L (4.30-5.90) m/uL Hct 38.5 L (39.0-53.0) % Plt Count 142 L (150-450) k/uL Metamyelocytes # (Man) 0.05 H (0) k/uL Chloride (98-107) mmol/L Carbon Dioxide (22-30) mmol/L BUN (9-20) mg/dL Glucose (74-99) mg/dL POC Glucose (mg/dL) 283 H 265 H (75-99) mg/dL Calcium (8.4-10.2) mg/dL AST (17-59) U/L ALT (21-72) U/L Alkaline Phosphatase (38-126) U/L Total Protein (6.3-8.2) g/dL Albumin (3.5-5.0) g/dL 11/28/17 11/28/17 Range/Units 07:40 11:04 RBC (4.30-5.90) m/uL Hct (39.0-53.0) % Plt Count (150-450) k/uL Metamyelocytes # (Man) (0) k/uL Chloride 94 L (98-107) mmol/L Carbon Dioxide 34 H (22-30) mmol/L BUN 38 H (9-20) mg/dL Glucose 261 H (74-99) mg/dL POC Glucose (mg/dL) 388 H (75-99) mg/dL Calcium 8.0 L (8.4-10.2) mg/dL AST 71 H (17-59) U/L ALT 74 H (21-72) U/L Alkaline Phosphatase 34 L (38-126) U/L Total Protein 6.2 L (6.3-8.2) g/dL Albumin 3.4 L (3.5-5.0) g/dL Assessment and Plan Plan: Assessment 1 acute hypoxic respiratory failure, still on oxygen at 4 L of oxygen by nasal cannula 2 acute bilateral pulmonary infiltrates. Rule out viral pneumonia. Rule out atypical pneumonia. Underlying cardiogenic pulmonary edema is felt to be less likely. The patient is developing a left perihilar infiltrate which is more consistent with pneumonia this point. Echocardiogram showed a preserved LV function with an ejection fraction of 55-60% 3 Saw silver syndrome 4 obesity. 5 hypothyroidism 6 hypertension 7 hyperlipidemia 8 diabetes mellitus type 2 9 mental retardation 10 mild rhabdomyolysis 11 mild transaminitis, improving Plan Obtain sputum Gram stain and culture if possible. Empiric antibiotic coverage with Levaquin. DuoNeb neb treatments around the clock. IV Solu Medrol 40 every 8. Continued IV Lasix with. I reviewed the chest x-ray from today. I would suggest continue same treatment. I reviewed also the echocardiogram. He would benefit from diuretics and I will cut down the IV fluids to KVO. Continue the diuretics for another 24 hours. Repeat chest x-ray in the morning. Monitor CPK. Monitor liver function tests. We'll continue to follow.
--- NOTE | 2017-11-28 13:09 | P.CRDCN ---
History of Present Illness Consult date: 11/28/17 Consult reason: shortness of breath History of present illness: Mr. Muñoz is a pleasant 31-year-old male past medical history significant for Saw Silver syndrome , diabetes mellitus, mental retardation , dyslipidemia, hypothyroidism, short stature, mood disorder and obesity. Most information is given from guardian who is at the bedside. We have been asked to see him in consultation for shortness of breath. Family states he has no history of heart disease or heart failure. He started coughing Monday night and was having a a hard time sleeping. Monday the cough persisted and he started having some wheezing so was taken to urgent care for evaluation. At the time he was found to have a low pulse ox in the high 80's and was transported to the hospital for evaluation. At the time of my exam he is seen sitting up in bed in no acute distress with oxygen infusing via nasal cannula. He is conversational although very hard of hearing. He denies, as well as family, ever having had any symptoms of chest pain, palpitations, dizziness, nausea, vomiting or diaphoresis. Recent echocardiogram performed 11/19/2017 reveals preserved LV function with no evidence of structural heart disease. EKG on arrival reveals sinus mechanism with no acute ST or T-wave abnormalities. Chest xray on admission reveals cardiomegaly with with possible pulmonary venous hypertension and early interstitial edema this is a difficult study although. Repeat this morning indicates developing left perihilar infiltrate. Laboratory data reviewed, hemoglobin 13.1, potassium 4.2, magnesium 2.0, proBNP 34, cardiac enzymes negative 1, CK 1386, d-dimer 0.54. Current cardiac medications include simvastatin 20 mg daily, fenofibrate 160 mg daily, losartan 100 mg daily and propanolol 20 mg daily. Review of Systems At the time of my exam: CONSTITUTIONAL: Denies fever. Denies chills. EYES: Denies blurred vision. Denies vision changes. Denies eye pain. EARS, NOSE, MOUTH & THROAT: Denies headache. Denies sore throat. Denies ear pain. CARDIOVASCULAR: Denies chest pain. Complains of shortness of breath. Denies orthopnea. Denies PND. Denies palpitations. RESPIRATORY: Complains of cough. GASTROINTESTINAL: Denies abdominal pain. Denies diarrhea. Denies constipation. Denies nausea. Denies vomiting. MUSCULOSKELETAL: Denies myalgias. INTEGUMENTARY: Denies pruitis. Denies rash. NEUROLOGIC: Denies numbness. Denies tingling. Denies weakness. PSYCHIATRIC: Denies anxiety. Denies depression. ENDOCRINE: Denies fatigue. Denies weight change. Denies polydipsia. Denies polyurina. GENITOURINARY: Denies burning, hematuria or urgency with micturation. HEMATOLOGIC: Denies history of anemia. Denies bleeding. Past Medical History Past Medical History: Diabetes Mellitus Additional Past Medical History / Comment(s): Saw silver syndrome , obesity , mental retardation, diabetes mellitus, hyperlipidemia, acid reflux, hypothyroidism, obesity History of Any Multi-Drug Resistant Organisms: None Reported Past Surgical History: Ear Surgery Past Anesthesia/Blood Transfusion Reactions: Previous Problems w/ Anesthesia Additional Past Anesthesia/Blood Transfusion Reaction / Comment(s): has clausterphobia. Smoking Status: Never smoker - Past Family History Father History Unknown: Yes Mother History Unknown: Yes Medications and Allergies Home Medications Medication Instructions Recorded Confirmed Type Albuterol Nebulized [Ventolin 2.5 mg INHALATION RT-TID 11/27/17 11/27/17 History Nebulized] Ascorbic Acid [Vitamin C] 1,000 mg PO DAILY 11/27/17 11/27/17 History Divalproex Sodium [Depakote] 1,000 mg PO HS 11/27/17 11/27/17 History Fenofibrate [Lofibra] 160 mg PO DAILY 11/27/17 11/27/17 History Fluticasone Propionate [Flonase 1 spray EA NOSTRIL BID 11/27/17 11/27/17 History Allergy Relief] Glimepiride [Amaryl] 2 mg PO AC-BID 11/27/17 11/27/17 History Levothyroxine Sodium [Synthroid] 75 mcg PO DAILY 11/27/17 11/27/17 History Losartan Potassium 100 mg PO DAILY 11/27/17 11/27/17 History Montelukast Sodium [Singulair] 10 mg PO DAILY 11/27/17 11/27/17 History Multivitamins, Thera [Multivitamin 1 tab PO DAILY 11/27/17 11/27/17 History (formulary)] [place]-3 Fatty Acids [[place]-3] 2,000 mg PO DAILY 11/27/17 11/27/17 History Omeprazole [PriLOSEC] 20 mg PO DAILY 11/27/17 11/27/17 History Pioglitazone [Actos] 15 mg PO DAILY 11/27/17 11/27/17 History Propranolol [Inderal] 20 mg PO DAILY 11/27/17 11/27/17 History Simvastatin [Zocor] 20 mg PO HS 11/27/17 11/27/17 History metFORMIN HCL ER [Glucophage Xr] 1,000 mg PO DAILY 11/27/17 11/27/17 History risperiDONE [RisperDAL] 0.5 mg PO HS 11/27/17 11/27/17 History Allergies Allergy/AdvReac Type Severity Reaction Status Date / Time No Known Allergies Allergy Verified 11/27/17 10:24 Physical Exam Vitals: Vital Signs Temp Pulse Pulse Resp BP BP BP 11/28/17 08:00 98.6 F 91 26 H 132/58 11/28/17 07:34 11/28/17 07:00 99.2 F 93 26 H 117/56 11/28/17 06:54 93 11/28/17 06:46 93 11/27/17 23:00 99.4 F 91 16 120/59 11/27/17 16:19 100.1 F H 89 20 123/58 11/27/17 15:54 97.0 F L 82 18 130/76 11/27/17 13:34 80 18 11/27/17 11:28 97 11/27/17 11:21 11/27/17 11:18 92 11/27/17 09:49 101.4 F H 91 20 106/57 Pulse Ox 11/28/17 08:00 91 L 11/28/17 07:34 90 L 11/28/17 07:00 88 L 11/28/17 06:54 11/28/17 06:46 11/27/17 23:00 89 L 11/27/17 16:19 92 L 11/27/17 15:54 93 L 11/27/17 13:34 93 L 11/27/17 11:28 11/27/17 11:21 93 L 11/27/17 11:18 11/27/17 09:49 84 L Intake and Output 11/27/17 11/28/17 11/28/17 22:59 06:59 14:59 Intake Total 100 400 Balance 100 400 Intake: Intake, IV Titration 100 400 Amount Sodium Chloride 0.9% 1, 100 400 000 ml @ 50 mls/hr IV . Q20H ON LICENSE OF [facility] Rx#:[id number] Other: Voiding Method Toilet # Voids 3 Blood pressure 132/58 heart rate 91 afebrile requiring oxygen at 4 L nasal cannula to maintain oxygen saturation at 91% GENERAL: This is a 31-year-old male in no apparent distress at the time of my examination. HEENT: Head is atraumatic, normocephalic. Pupils are equal, round. Sclerae anicteric. Conjunctivae are clear. Mucous membranes of the mouth are moist. Neck is supple. There is no jugular venous distention. No carotid bruit is heard. LUNGS: Diffuse wheezing on expiration throughout. No rales or rhonchi. No chest wall tenderness is noted on palpation or with deep breathing. HEART: Regular rate and rhythm without murmurs, rubs or gallops. S1 and S2 heard. ABDOMEN: Soft, nontender. Bowel sounds are heard. No organomegaly noted. EXTREMITIES: Trace bilateral lower extremity edema and no calf tenderness noted. VASCULAR: Radial and dorsalis pedis pulses palpated, no evidence of clubbing. NEUROLOGIC: Patient is awake, alert and communicating appropriately with evidence of mental delay requires prompting from Guardian to answer questions. Results 11/28/17 07:40 11/28/17 07:40 Cardiac Enzymes 11/27/17 11/27/17 11/28/17 Range/Units 11:05 11:05 07:40 AST 123 H 71 H (17-59) U/L CK-MB (CK-2) 0.7 (0.0-2.4) ng/mL Troponin I <0.012 (0.000-0.034) ng/mL Coagulation 11/27/17 Range/Units 11:05 PT 9.8 (9.0-12.0) sec APTT 29.3 (22.0-30.0) sec CBC 11/27/17 Range/Units 11:05 WBC 5.7 (3.8-10.6) k/uL RBC 4.38 (4.30-5.90) m/uL Hgb 12.6 L (13.0-17.5) gm/dL Hct 39.9 (39.0-53.0) % Plt Count 172 (150-450) k/uL Comprehensive Metabolic Panel 11/27/17 11/28/17 Range/Units 11:05 07:40 Sodium 141 141 (137-145) mmol/L Potassium 4.5 4.2 (3.5-5.1) mmol/L Chloride 99 94 L (98-107) mmol/L Carbon Dioxide 29 34 H (22-30) mmol/L BUN 29 H 38 H (9-20) mg/dL Creatinine 1.10 1.00 (0.66-1.25) mg/dL Glucose 102 H 261 H (74-99) mg/dL Calcium 8.6 8.0 L (8.4-10.2) mg/dL AST 123 H 71 H (17-59) U/L ALT 89 H 74 H (21-72) U/L Alkaline Phosphatase 32 L 34 L (38-126) U/L Total Protein 6.3 6.2 L (6.3-8.2) g/dL Albumin 3.4 L 3.4 L (3.5-5.0) g/dL Current Medications Generic Name Dose Route Start Last Admin Trade Name Freq PRN Reason Stop Dose Admin Acetaminophen 650 mg 11/27/17 12:59 Tylenol Tab PO Q6HR PRN Mild Pain or Fever > 100.5 Albuterol/Ipratropium 3 ml 11/28/17 02:08 11/28/17 06:41 Duoneb 0.5 Mg-3 Mg/3 Ml Soln INHALATION 3 ml RT-Q4H PRN Administration Shortness Of Breath Or Wheezing Atorvastatin Calcium 10 mg 11/27/17 21:00 11/27/17 20:56 Lipitor PO 10 mg HS WES Administration Divalproex Sodium 1,000 mg 11/27/17 21:00 11/27/17 20:56 Depakote PO 1,000 mg HS WES Administration Fenofibrate 160 mg 11/28/17 09:00 Lofibra PO DAILY WES Furosemide 20 mg 11/27/17 16:00 11/28/17 07:42 Lasix IV 20 mg TID WES Administration Glimepiride 2 mg 11/27/17 17:30 11/28/17 07:44 Amaryl PO 2 mg AC-BID WES Administration Levofloxacin 500 mg/ IV 100 mls @ 100 mls/hr 11/28/17 14:00 Solution IVPB 1400 WES Sodium Chloride 1,000 mls @ 50 mls/hr 11/27/17 13:00 11/28/17 07:42 Saline 0.9% IV 50 mls/hr .Q20H [facility] Administration Insulin Aspart 0 unit 11/27/17 17:30 11/28/17 07:45 Novolog SQ 8 unit ACHS WES Administration Protocol Levothyroxine Sodium 75 mcg 11/28/17 06:30 11/28/17 06:23 Synthroid PO 75 mcg 0630 [facility] Administration Losartan Potassium 100 mg 11/28/17 09:00 Cozaar PO DAILY W[facility] Methylprednisolone Sodium Succinate 40 mg 11/27/17 21:00 11/28/17 07:42 Solu-Medrol IV 40 mg BID WES Administration Naloxone HCl 0.2 mg 11/27/17 12:59 Narcan IV Q2M PRN Opioid Reversal Pantoprazole Sodium 40 mg 11/28/17 07:30 11/28/17 07:44 Protonix PO 40 mg AC-BRKFST W[facility] Administration Pioglitazone HCl 15 mg 11/28/17 09:00 Actos PO DAILY [facility] Propranolol HCl 20 mg 11/28/17 09:00 Inderal PO DAILY W[facility] Risperidone 0.5 mg 11/27/17 21:00 11/27/17 20:56 Risperdal PO 0.5 mg HS WES Administration Intake and Output 11/27/17 11/28/17 11/28/17 22:59 06:59 14:59 Intake Total 100 400 Balance 100 400 Intake: Intake, IV Titration 100 400 Amount Sodium Chloride 0.9% 1, 100 400 000 ml @ 50 mls/hr IV . Q20H [facility] Rx#:[id number] Other: Voiding Method Toilet # Voids 3 11/27/17 11:05 11/28/17 07:40 Assessment and Plan Assessment: ASSESSMENT 1. Acute hypoxic respiratory failure 2. Bilateral pulmonary infiltrates currently receiving IV antibiotics and being followed closely by pulmonology 3. Restless over syndrome 4. Hypertension 5. Dyslipidemia 6. Obesity 7. Diabetes mellitus 8. Rhabdomyolysis 9. Elevated liver function PLAN Clinically he does not appear to have any heart failure. Acute respiratory failure most likely secondary to underlying pneumonia as well as possibly some component of bronchitis. Continue with current medical management. We will continue with the patient has needed. Thank you kindly for this consultation. Nurse Practitioner note has been reviewed, I agree with a documented findings and plan of care. Patient was seen and examined.
[2017-11-28] MEDS ORDERED: LEVOFLOXACIN 500MG-D5W PMX 500 MG in DEXTROSE/WATER 1 100ML.BAG IVPB SCH (14:00)
[2017-11-28] MEDS: LEVOFLOXACIN 500 MG TAB PO SCH (14:08)
[2017-11-28 14:34] LABS: Glucose,Whole Blood 290 mg/dL (75-99)
[2017-11-28 16:56] LABS: Glucose,Whole Blood 305 mg/dL (75-99)
[2017-11-28 20:05] LABS: Glucose,Whole Blood 355 mg/dL (75-99)
[2017-11-28] MEDS ORDERED: INSULIN DETEMIR 100 UNIT/ML 10 ML VIAL SQ SCH (21:00)
[2017-11-28] MEDS: risperiDONE 0.5 MG TAB PO SCH (21:14)
[2017-11-28] MEDS: ATORVASTATIN 10 MG TAB PO SCH (21:15)
[2017-11-28] MEDS: DIVALPROEX 500 MG TABLET.DR PO SCH (21:15)
[2017-11-28] MEDS: PROPRANOLOL 20 MG TAB PO SCH (21:39)
[2017-11-29] MEDS: LEVOTHYROXINE 75 MCG TAB PO SCH (06:17)
[2017-11-29 07:27] LABS: Glucose,Whole Blood 200 mg/dL (75-99)
[2017-11-29] MEDS: INSULIN ASPART 100 UNIT/ML 1 ML 10 ML VIAL SQ SCH ×7 (07:47→21:20)
[2017-11-29] MEDS: GLIMEPIRIDE 2 MG TAB PO SCH ×2 (07:49→17:57)
[2017-11-29] MEDS: PANTOPRAZOLE 40 MG TABLET PO SCH (07:49)
[2017-11-29] MEDS: FENOFIBRATE 160 MG TAB PO SCH (07:50)
[2017-11-29] MEDS: LOSARTAN 50 MG TAB PO SCH (07:50)
[2017-11-29] MEDS: PIOGLITAZONE 15 MG TAB PO SCH (07:51)
[2017-11-29] MEDS: PROPRANOLOL 20 MG TAB PO SCH ×2 (07:52→20:53)
--- NOTE | 2017-11-29 07:55 | XR ---
EXAMINATION TYPE: XR chest 2V DATE OF EXAM: 11/29/2017 COMPARISON: Prior chest 11/28/2017 HISTORY: Left perihilar infiltrate, follow-up TECHNIQUE: Frontal and lateral views of the chest are obtained. FINDINGS: Heart remains enlarged. No evident pneumothorax or pleural effusion. Pulmonary vascularity and lorin not significantly changed. Lung volumes are low. Question some groundglass opacity within t he lungs. IMPRESSION: Expiratory rotated exam. Difficult to exclude airspace disease. Follow-up suggested.
[2017-11-29 07:58] LABS: HCT 40.4 % (39.0-53.0); HGB 12.8 gm/dL (13.0-17.5); MCH 29.3 pg (25.0-35.0); MCHC 31.6 g/dL (31.0-37.0); MCV 92.9 fL (80.0-100.0); Mean Platelet Volume 7.6; Platelet Count 156 k/uL (150-450); RBC 4.35 m/uL (4.30-5.90); RDW 13.8 % (11.5-15.5); WBC 7.7 k/uL (3.8-10.6)
[2017-11-29 08:21] LABS: Anion Gap 10 mmol/L; Blood Urea Nitrogen 38 mg/dL (9-20); Calcium 8.6 mg/dL (8.4-10.2); Carbon Dioxide 34 mmol/L (22-30); Chloride 96 mmol/L (98-107); Glucose 205 mg/dL (74-99); Potassium 4.9 mmol/L (3.5-5.1); Sodium 140 mmol/L (137-145)
[2017-11-29] MEDS: methylPREDNISolone SOD SUCCI 40 MG/ML 1 ML VIAL IV SCH ×2 (09:10→20:53)
[2017-11-29 09:14] LABS: Band Neutrophils % 3 %; Monocytes # (M) 0.15 k/uL (0-1.0); Neutrophils % (M) 56 %; Nucleated Red Blood Cells 0 /100 WBC (0-0); Total Cells Counted 100
[2017-11-29] MEDS: IPRATROPIUM-ALBUTEROL 3 ML NEB INHALATION PRN (09:15)
[2017-11-29 09:40] LABS: Anisocytosis (M) Present; Poikilocytosis (M) Present
[2017-11-29 11:33] LABS: Glucose,Whole Blood 365 mg/dL (75-99)
[2017-11-29] MEDS: IPRATROPIUM-ALBUTEROL 3 ML NEB INHALATION SCH ×3 (12:02→21:27)
[2017-11-29] MEDS: LEVOFLOXACIN 500 MG TAB PO SCH (13:13)
--- NOTE | 2017-11-29 15:55 | P.PN ---
Subjective Progress Note Date: 11/29/17 Principal diagnosis: Acute hypoxic respiratory failure, related to bilateral pulmonary infiltrates, rule out viral pneumonia versus atypical pneumonia vs cardiogenic pulmonary edema A 31-year-old male patient, known case of Down syndrome with secondary mental retardation, known case of Saw Silver syndrome, presenting to the hospital because of increased shortness of breath chest tightness and wheezing. The patient has increased cough. He is having some increased difficulty breathing. No reported fever chills or night sweats. Most of the information is obtained from the guardian. No family is available. The patient's influenza screen for a and B was negative. The patient had a chest x-ray that showed breath and pulmonary infiltrates with increased interstitial pattern. Known history of any congestion heart failure. No valvular heart disease. No history of congenital heart disease. No swelling in the lower extremities. No leukocytosis and the white cell count is at 5.7. Rest of the blood work and electrodes are all within normal limits. The CPK is mildly elevated at 1386. The troponin is negative. EKG showing a normal sinus rhythm. The patient is still interactive. His communicating. He is pleasant and on and off laughing. He was placed on IV Lasix. He was also placed on IV Solu-Medrol. He was placed on empiric antibiotic coverage with Levaquin. He is also on DuoNeb neb last treatment [id number]. He will be moved to the medical floor. Patient was desaturating and his pulse ox was dropping below 90% and currently is on oxygen at 3 L/m nasal cannula. On today's evaluation of 11/28/2017 the patient is being seen for a follow-up. The patient remains on oxygen at 4 L of oxygen by nasal cannula. A repeat chest x-ray was done. It was a poor respiratory film. There was evidence of cardiomegaly. There is also evidence of left perihilar patchy density which may reflect an underlying infiltrate or developing pneumonia. The patient is less focused spastic and wheezy compared to yesterday. The patient is afebrile. The patient is tolerating his diet. No aspiration. He is very happy and interactive. He has a congested cough. Unable to bring up much sputum. Denies having any chest pain. He is ambulating. The echocardiogram was also done. It was a technically difficult study for assessment of the left ventricular function. The patient's ejection fraction was 55-60%. Valves cannot be accurately seen. The patient currently is on Levaquin. The patient is also on Lasix 20 mg IV 3 times a day. The patient is on DuoNeb nebulized she was around the clock. The patient is on IV Solu Medrol 40 mg every 12 hours. On 11/29/2017 patient is seen in follow-up. He denies any acute distress. His chest x-ray was reviewed, and shows improvement in the appearance of pulmonary vascularity. Remains on 4 L per nasal cannula with his pulse ox of 93%. Afebrile, vital signs stable. Lung sounds are improved, less crackles noted on today's exam. Continue weaning FiO2, continue current treatment, with Levaquin , nebulized treatments, and IV steroids. Objective - Vital Signs Vital signs: Vital Signs Temp 98.3 F 11/29/17 07:45 Pulse 82 11/29/17 12:13 Resp 28 H 11/29/17 08:42 BP 133/56 11/29/17 07:45 Pulse Ox 93 L 11/29/17 07:45 Intake & Output 11/28/17 11/29/17 11/29/17 18:59 06:59 18:59 Intake Total 220 1180 Balance 220 1180 Intake: Intake, IV Titration 220 240 Amount Sodium Chloride 0.9% 1, 220 240 000 ml @ 20 mls/hr IV . Q24H [facility] Rx#:[id number] Oral 940 Other: Voiding Method Toilet Toilet # Voids 3 1 - Exam GENERAL: The patient alert and unable to his orientation does talk, he has underlying mental retardation. Cannot obtain useful information from the patient. No signs of any apparent reading distress. He is still active and does not look lethargic. HEENT: Pupils are round and equally reacting to light. EOMI. No scleral icterus. No conjunctival pallor. Normocephalic, atraumatic. No pharyngeal erythema. No thyromegaly. CARDIOVASCULAR: S1 and S2 present. No murmurs, rubs, or gallops. PULMONARY: Diminished lung sounds bilaterally, with minimal crackles, improved from yesterday's exam. ABDOMEN: Soft, nontender, nondistended, normoactive bowel sounds. No palpable organomegaly. MUSCULOSKELETAL: No joint swelling or deformity. EXTREMITIES: No cyanosis, clubbing, or pedal edema. NEUROLOGICAL: Gross neurological examination did not reveal any focal deficits. SKIN: No rashes. - Labs CBC & Chem 7: 11/29/17 07:26 11/29/17 07:26 Labs: Abnormal Lab Results - Last 24 Hours (Table) 11/28/17 11/28/17 11/29/17 Range/Units 16:50 20:04 07:25 Hgb (13.0-17.5) gm/dL Chloride (98-107) mmol/L Carbon Dioxide (22-30) mmol/L BUN (9-20) mg/dL Glucose (74-99) mg/dL POC Glucose (mg/dL) 305 H 355 H 200 H (75-99) mg/dL 11/29/17 11/29/17 11/29/17 Range/Units 07:26 07:26 11:26 Hgb 12.8 L (13.0-17.5) gm/dL Chloride 96 L (98-107) mmol/L Carbon Dioxide 34 H (22-30) mmol/L BUN 38 H (9-20) mg/dL Glucose 205 H (74-99) mg/dL POC Glucose (mg/dL) 365 H (75-99) mg/dL Microbiology - Last 24 Hours (Table) 11/27/17 11:05 Blood Culture - Preliminary Blood No Growth after 48 hours Assessment and Plan Plan: Assessment: 1 acute hypoxic respiratory failure, still on oxygen at 4 L of oxygen by nasal cannula 2 acute bilateral pulmonary infiltrates. Rule out viral pneumonia. Rule out atypical pneumonia. Underlying cardiogenic pulmonary edema is felt to be less likely. The patient is developing a left perihilar infiltrate which is more consistent with pneumonia this point. Echocardiogram showed a preserved LV function with an ejection fraction of 55-60% 3 Saw silver syndrome 4 obesity. 5 hypothyroidism 6 hypertension 7 hyperlipidemia 8 diabetes mellitus type 2 9 mental retardation 10 mild rhabdomyolysis 11 mild transaminitis, improving Plan Today's chest x-ray shows improvement, and there is less crackles on today's exam. Weaning FiO2, begin incentive spirometry. Increase activity as tolerated. Continue current antibiotic coverage, continue nebulized treatments , and IV steroids. I performed a history & physical examination of the patient and discussed their management with my nurse practitioner, Marta Daniels. I reviewed the nurse practitioner's note and agree with the documented findings and plan of care. Lung sounds are diminished, with minimal crackles. The findings and the impression was discussed with the patient. I attest to the documentation by the nurse practitioner. Time with Patient: Less than 30
[2017-11-29 17:25] LABS: Glucose,Whole Blood 252 mg/dL (75-99)
--- NOTE | 2017-11-29 17:29 | P.PN ---
Subjective Progress Note Date: 11/28/17 Progress note being dictated for Dr. 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 Patient has diffuse infiltrate although patient doesn't have any elevated BNP. Clinically does not appear to have CHF. Patient was comparing of cough with clear sputum production. But suggestive and the patient. Although his symptoms has been going on for couple days. Review of Systems REVIEW OF SYSTEMS: CONSTITUTIONAL: As mentioned in HPI HEENT: No recent visual problems or hearing problems. Denied any sore throat. CARDIOVASCULAR: No chest pain, orthopnea, PND, no palpitations, no syncope. PULMONARY: As mentioned in HPI GASTROINTESTINAL: No diarrhea, no nausea, no vomiting, no abdominal pain. Normoactive bowel sounds. NEUROLOGICAL: No headaches, no weakness, no numbness. HEMATOLOGICAL: Denies any bleeding or petechiae. GENITOURINARY: Denies any burning micturition, frequency, or urgency. MUSCULOSKELETAL/RHEUMATOLOGICAL: Denies any joint pain, swelling, or any muscle pain. ENDOCRINE: Denies any polyuria or polydipsia. The rest of the 14-point review of systems is negative. 11/28/2017. Maintained on Levaquin, Lasix, nebulized bronchodilators, IV steroids .Evaluated by pulmonary and cardiology with recommendations noted. Chest x-ray limited, reporting developed a left perihilar infiltrate/patchy density. Breathing continues to improve with less wheezing. Less congested nonproductive cough. Afebrile. Echo limited study, reporting normal LV function, EF 55-60%. LFTs improving. Objective - Vital Signs Vital signs: Vital Signs Temp 99.6 F 11/28/17 14:52 Pulse 61 11/28/17 14:52 Resp 22 11/28/17 14:52 BP 118/56 11/28/17 14:52 Pulse Ox 89 L 11/28/17 14:52 Intake & Output 11/27/17 11/28/17 11/28/17 18:59 06:59 18:59 Intake Total 500 220 Balance 500 220 Weight 95.254 kg Intake: Intake, IV Titration 500 220 Amount Sodium Chloride 0.9% 1, 500 220 000 ml @ 20 mls/hr IV . Q24H [facility] Rx#:[id number] Other: Voiding Method Toilet # Voids 3 - Exam GENERAL: The patient alert and unable to his orientation, does talk, underlying mentally delayed. HEENT: Pupils are round and equally reacting to light. EOMI. No scleral icterus. No conjunctival pallor. Normocephalic, atraumatic. No pharyngeal erythema. No thyromegaly. CARDIOVASCULAR: S1 and S2 present. No murmurs, rubs, or gallops. PULMONARY: Bibasilar crackles are appreciated or improving expiratory wheezing was appreciated bilaterally ABDOMEN: Soft, nontender, nondistended, normoactive bowel sounds. No palpable organomegaly. MUSCULOSKELETAL: No joint swelling or deformity. EXTREMITIES: No cyanosis, clubbing, trace pedal edema. NEUROLOGICAL: Gross neurological examination did not reveal any focal deficits. SKIN: No rashes. - Labs CBC & Chem 7: 11/29/17 07:26 11/29/17 07:26 Labs: Abnormal Lab Results - Last 24 Hours (Table) 11/27/17 11/28/17 11/28/17 Range/Units 20:20 06:55 07:40 RBC 4.21 L (4.30-5.90) m/uL Hct 38.5 L (39.0-53.0) % Plt Count 142 L (150-450) k/uL Metamyelocytes # (Man) 0.05 H (0) k/uL Chloride (98-107) mmol/L Carbon Dioxide (22-30) mmol/L BUN (9-20) mg/dL Glucose (74-99) mg/dL POC Glucose (mg/dL) 283 H 265 H (75-99) mg/dL Calcium (8.4-10.2) mg/dL AST (17-59) U/L ALT (21-72) U/L Alkaline Phosphatase (38-126) U/L Creatine Kinase (55-170) U/L Total Protein (6.3-8.2) g/dL Albumin (3.5-5.0) g/dL 11/28/17 11/28/17 11/28/17 Range/Units 07:40 07:40 11:04 RBC (4.30-5.90) m/uL Hct (39.0-53.0) % Plt Count (150-450) k/uL Metamyelocytes # (Man) (0) k/uL Chloride 94 L (98-107) mmol/L Carbon Dioxide 34 H (22-30) mmol/L BUN 38 H (9-20) mg/dL Glucose 261 H (74-99) mg/dL POC Glucose (mg/dL) 388 H (75-99) mg/dL Calcium 8.0 L (8.4-10.2) mg/dL AST 71 H (17-59) U/L ALT 74 H (21-72) U/L Alkaline Phosphatase 34 L (38-126) U/L Creatine Kinase 647 H (55-170) U/L Total Protein 6.2 L (6.3-8.2) g/dL Albumin 3.4 L (3.5-5.0) g/dL 11/28/17 11/28/17 Range/Units 14:32 16:50 RBC (4.30-5.90) m/uL Hct (39.0-53.0) % Plt Count (150-450) k/uL Metamyelocytes # (Man) (0) k/uL Chloride (98-107) mmol/L Carbon Dioxide (22-30) mmol/L BUN (9-20) mg/dL Glucose (74-99) mg/dL POC Glucose (mg/dL) 290 H 305 H (75-99) mg/dL Calcium (8.4-10.2) mg/dL AST (17-59) U/L ALT (21-72) U/L Alkaline Phosphatase (38-126) U/L Creatine Kinase (55-170) U/L Total Protein (6.3-8.2) g/dL Albumin (3.5-5.0) g/dL Microbiology - Last 24 Hours (Table) 11/27/17 11:05 Blood Culture - Preliminary Blood No Growth after 24 hours Assessment and Plan Assessment: 1 acute hypoxic respiratory failure: Secondary to possible while bronchitis or pneumonia although atypical pneumonia cannot be ruled out along with the asthma exacerbation. -Possibly of atypical pneumonia or viral pneumonia -Type 2 diabetes mellitus -Elevated liver enzymes and elevated CK secondary to infection, improving -SHABANA Silver Syndrome Plan: Continue on current medication regime ,monitoring and symptomatic treatment. IV fluids decreased. Maintain nebulized bronchodilators, steroids, antibiotics, diuretics. Follow-up chest x-ray results pending.Pre-meal insulin in addition to sliding scale and long-acting Levemir insulin added to med regime. Close monitoring of Accu-Cheks. Follow closely with pulmonary. Family at bedside and updated on plan a care. Verbalized understanding and agreement with. The impression and plan of care has been dictated as directed. : I performed a history and examination of this patient, discussed the same with the dictator. I agree with the dictator's note ,documented as a scribe. Any additional findings or plans will be noted.
--- NOTE | 2017-11-29 17:33 | P.PN ---
Subjective Progress Note Date: 11/29/17 Progress note being dictated for Dr. 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 Patient has diffuse infiltrate although patient doesn't have any elevated BNP. Clinically does not appear to have CHF. Patient was comparing of cough with clear sputum production. But suggestive and the patient. Although his symptoms has been going on for couple days. Review of Systems REVIEW OF SYSTEMS: CONSTITUTIONAL: As mentioned in HPI HEENT: No recent visual problems or hearing problems. Denied any sore throat. CARDIOVASCULAR: No chest pain, orthopnea, PND, no palpitations, no syncope. PULMONARY: As mentioned in HPI GASTROINTESTINAL: No diarrhea, no nausea, no vomiting, no abdominal pain. Normoactive bowel sounds. NEUROLOGICAL: No headaches, no weakness, no numbness. HEMATOLOGICAL: Denies any bleeding or petechiae. GENITOURINARY: Denies any burning micturition, frequency, or urgency. MUSCULOSKELETAL/RHEUMATOLOGICAL: Denies any joint pain, swelling, or any muscle pain. ENDOCRINE: Denies any polyuria or polydipsia. The rest of the 14-point review of systems is negative. 11/28/2017. Maintained on Levaquin, Lasix, nebulized bronchodilators, IV steroids .Evaluated by pulmonary and cardiology with recommendations noted. Chest x-ray limited, reporting developed a left perihilar infiltrate/patchy density. Breathing continues to improve with less wheezing. Less congested nonproductive cough. Afebrile. Echo limited study, reporting normal LV function, EF 55-60%. LFTs improving. 11/29/17 no overnight events. Chest x-ray reporting improvement. Weaning of oxygen in progress. Afebrile Objective - Vital Signs Vital signs: Vital Signs Temp 98.3 F 11/29/17 07:45 Pulse 82 11/29/17 17:07 Resp 28 H 11/29/17 08:42 BP 133/56 11/29/17 07:45 Pulse Ox 93 L 11/29/17 07:45 Intake & Output 11/28/17 11/29/17 11/29/17 18:59 06:59 18:59 Intake Total 220 1180 160 Balance 220 1180 160 Intake: Intake, IV Titration 220 240 160 Amount Sodium Chloride 0.9% 1, 220 240 160 000 ml @ 20 mls/hr IV . Q24H [facility] Rx#:[id number] Oral 940 Other: Voiding Method Toilet Toilet # Voids 3 1 - Exam GENERAL: The patient alert and unable to his orientation, does talk, underlying mentally delayed. HEENT: Pupils are round and equally reacting to light. EOMI. No scleral icterus. No conjunctival pallor. Normocephalic, atraumatic. No pharyngeal erythema. No thyromegaly. CARDIOVASCULAR: S1 and S2 present. No murmurs, rubs, or gallops. PULMONARY: Minimal Bibasilar crackles are appreciated or improving expiratory wheezing was appreciated bilaterally ABDOMEN: Soft, nontender, nondistended, normoactive bowel sounds. No palpable organomegaly. MUSCULOSKELETAL: No joint swelling or deformity. EXTREMITIES: No cyanosis, clubbing, no pedal edema. NEUROLOGICAL: Gross neurological examination did not reveal any focal deficits. SKIN: No rashes. - Labs CBC & Chem 7: 11/29/17 07:26 11/29/17 07:26 Labs: Abnormal Lab Results - Last 24 Hours (Table) 11/28/17 11/29/17 11/29/17 Range/Units 20:04 07:25 07:26 Hgb 12.8 L (13.0-17.5) gm/dL Chloride (98-107) mmol/L Carbon Dioxide (22-30) mmol/L BUN (9-20) mg/dL Glucose (74-99) mg/dL POC Glucose (mg/dL) 355 H 200 H (75-99) mg/dL 11/29/17 11/29/17 11/29/17 Range/Units 07:26 11:26 17:18 Hgb (13.0-17.5) gm/dL Chloride 96 L (98-107) mmol/L Carbon Dioxide 34 H (22-30) mmol/L BUN 38 H (9-20) mg/dL Glucose 205 H (74-99) mg/dL POC Glucose (mg/dL) 365 H 252 H (75-99) mg/dL Microbiology - Last 24 Hours (Table) 11/27/17 11:05 Blood Culture - Preliminary Blood No Growth after 48 hours Assessment and Plan Assessment: 1 acute hypoxic respiratory failure: Secondary to possible while bronchitis or pneumonia although atypical pneumonia cannot be ruled out along with the asthma exacerbation. -Possibly of atypical pneumonia or viral pneumonia -Type 2 diabetes mellitus -Elevated liver enzymes and elevated CK secondary to infection, improving -SHABANA Silver Syndrome Plan: Continue on current medication regime ,monitoring and symptomatic treatment. Aggressive pulmonary toileting. Weaning of FiO2 as per pulmonary. Blood Sugars elevated, Levemir increased. Close monitoring of Accu-Cheks. Maintain nebulized bronchodilators, steroids, antibiotics, Follow closely with pulmonary. The impression and plan of care has been dictated as directed. : I performed a history and examination of this patient, discussed the same with the dictator. I agree with the dictator's note ,documented as a scribe. Any additional findings or plans will be noted.
[2017-11-29 20:24] LABS: Glucose,Whole Blood 257 mg/dL (75-99)
[2017-11-29] MEDS: DIVALPROEX 500 MG TABLET.DR PO SCH (20:52)
[2017-11-29] MEDS: ATORVASTATIN 10 MG TAB PO SCH (20:52)
[2017-11-29] MEDS: risperiDONE 0.5 MG TAB PO SCH (20:52)
[2017-11-29] MEDS: INSULIN DETEMIR 100 UNIT/ML 10 ML VIAL SQ SCH (20:53)
[2017-11-30] MEDS: SODIUM CHLORIDE 0.9% 1,000 ML IV SCH (00:44)
[2017-11-30] MEDS: SODIUM CHLORIDE 0.9% 500 ML IV SCH ×2 (00:44→22:23)
[2017-11-30 07:29] LABS: Glucose,Whole Blood 159 mg/dL (75-99)
[2017-11-30] MEDS: LEVOTHYROXINE 75 MCG TAB PO SCH (07:34)
[2017-11-30] MEDS: GLIMEPIRIDE 2 MG TAB PO SCH ×2 (08:01→18:07)
[2017-11-30] MEDS: INSULIN ASPART 100 UNIT/ML 1 ML 10 ML VIAL SQ SCH ×7 (08:01→20:56)
[2017-11-30] MEDS: PANTOPRAZOLE 40 MG TABLET PO SCH (08:03)
[2017-11-30] MEDS: PROPRANOLOL 20 MG TAB PO SCH ×2 (08:04→20:55)
[2017-11-30] MEDS: LOSARTAN 50 MG TAB PO SCH (08:04)
[2017-11-30] MEDS: PIOGLITAZONE 15 MG TAB PO SCH (08:04)
[2017-11-30] MEDS: FENOFIBRATE 160 MG TAB PO SCH (08:04)
[2017-11-30 08:27] LABS: Basophils % (A) 0 %; Eosinophils % (A) 1 %; HCT 38.7 % (39.0-53.0); Lymphocytes # (A) 1.8 k/uL (1.0-4.8); Lymphocytes % (A) 26 %; MCH 30.6 pg (25.0-35.0); MCHC 33.7 g/dL (31.0-37.0); Mean Platelet Volume 7.1; Monocytes # (A) 0.4 k/uL (0-1.0); Monocytes % (A) 6 %; Neutrophils # (A) 4.4 k/uL (1.3-7.7); Neutrophils % (A) 64 %; Platelet Count 166 k/uL (150-450); RBC 4.26 m/uL (4.30-5.90); RDW 13.8 % (11.5-15.5); WBC 6.9 k/uL (3.8-10.6)
[2017-11-30] MEDS: IPRATROPIUM-ALBUTEROL 3 ML NEB INHALATION SCH ×4 (08:50→20:24)
[2017-11-30 08:52] LABS: ALT 75 U/L (21-72); AST 59 U/L (17-59); Albumin 3.2 g/dL (3.5-5.0); Alkaline Phosphatase 25 U/L (38-126); Anion Gap 9 mmol/L; Blood Urea Nitrogen 31 mg/dL (9-20); Calcium 8.7 mg/dL (8.4-10.2); Carbon Dioxide 34 mmol/L (22-30); Chloride 97 mmol/L (98-107); Creatine Kinase 138 U/L (55-170); Glucose 148 mg/dL (74-99); Potassium 5.1 mmol/L (3.5-5.1); Sodium 140 mmol/L (137-145); Total Bilirubin 0.3 mg/dL (0.2-1.3)
[2017-11-30] MEDS: methylPREDNISolone SOD SUCCI 40 MG/ML 1 ML VIAL IV SCH ×2 (11:03→21:43)
[2017-11-30 11:28] LABS: Glucose,Whole Blood 138 mg/dL (75-99)
[2017-11-30] MEDS: LEVOFLOXACIN 500 MG TAB PO SCH (12:59)
--- NOTE | 2017-11-30 13:29 | XR ---
EXAMINATION TYPE: XR chest 1V DATE OF EXAM: 11/30/2017 COMPARISON: Prior chest 11/29/2017 HISTORY: Pneumonia TECHNIQUE: Single frontal view of the chest is obtained. FINDINGS: Findings are similar to prior exam. Heart remains enlarged. No evident pneumothorax or ple ural effusion. Pulmonary artery and central vascularity appear prominently. There is questionable per ihilar increased density. Patient is rotated. IMPRESSION: Expiratory rotated exam. Difficult to exclude airspace disease. Follow-up PA and lateral chest x-ray recommended when patient is stable.
--- NOTE | 2017-11-30 16:13 | P.PN ---
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 The patient has increased cough. He is having some increased difficulty breathing. No reported fever chills or night sweats. Most of the information is obtained from the guardian. No family is available. The patient's influenza screen for a and B was negative. The patient had a chest x-ray that showed breath and pulmonary infiltrates with increased interstitial pattern. Known history of any congestion heart failure. No valvular heart disease. No history of congenital heart disease. No swelling in the lower extremities. No leukocytosis and the white cell count is at 5.7. Rest of the blood work and electrodes are all within normal limits. The CPK is mildly elevated at 1386. The troponin is negative. EKG showing a normal sinus rhythm. The patient is still interactive. His communicating. He is pleasant and on and off laughing. He was placed on IV Lasix. He was also placed on IV Solu-Medrol. He was placed on empiric antibiotic coverage with Levaquin. He is also on DuoNeb neb last treatment [id number]. He will be moved to the medical floor. Patient was desaturating and his pulse ox was dropping below 90% and currently is on oxygen at 3 L/m nasal cannula. On today's evaluation of 11/28/2017 the patient is being seen for a follow-up. The patient remains on oxygen at 4 L of oxygen by nasal cannula. A repeat chest x-ray was done. It was a poor respiratory film. There was evidence of cardiomegaly. There is also evidence of left perihilar patchy density which may reflect an underlying infiltrate or developing pneumonia. The patient is less focused spastic and wheezy compared to yesterday. The patient is afebrile. The patient is tolerating his diet. No aspiration. He is very happy and interactive. He has a congested cough. Unable to bring up much sputum. Denies having any chest pain. He is ambulating. The echocardiogram was also done. It was a technically difficult study for assessment of the left ventricular function. The patient's ejection fraction was 55-60%. Valves cannot be accurately seen. The patient currently is on Levaquin. The patient is also on Lasix 20 mg IV 3 times a day. The patient is on DuoNeb nebulized she was around the clock. The patient is on IV Solu Medrol 40 mg every 12 hours. On 11/29/2017 patient is seen in follow-up. He denies any acute distress. His chest x-ray was reviewed, and shows improvement in the appearance of pulmonary vascularity. Remains on 4 L per nasal cannula with his pulse ox of 93%. Afebrile, vital signs stable. Lung sounds are improved, less crackles noted on today's exam. Continue weaning FiO2, continue current treatment, with Levaquin , nebulized treatments, and IV steroids. On 11/30/2017 patient seen in follow-up. He is sitting in the chair, denies any acute distress. He's on 3 L per nasal cannula, with pulse ox at 93%. His room air oxygen was 88%, we will decrease the FiO2 down to 2 L. He remains afebrile, vital signs are stable. Lung sounds are negative for any rhonchi, wheezes or rales. Denies any fever or chills. Continues on empiric antibiotics in the form of Levaquin, nebulized treatments, and IV steroids. Repeat chest x-ray was obtained, and reviewed by Dr. Patel, pulmonary artery and central vascularity, with questionable perihilar density. Clinically patient denies any worsening dyspnea. Denies any chest pain. Continue current plan, continue weaning FiO2, and IV steroids. Objective - Vital Signs Vital signs: Vital Signs Temp 97.6 F 11/30/17 08:00 Pulse 88 11/30/17 12:02 Resp 18 11/30/17 15:41 BP 116/66 11/30/17 08:00 Pulse Ox 92 L 11/30/17 13:38 Intake & Output 11/29/17 11/30/17 11/30/17 18:59 06:59 18:59 Intake Total 160 1360 70 Balance 160 1360 70 Intake: Intake, IV Titration 160 120 70 Amount Sodium Chloride 0.9% 1, 160 000 ml @ 20 mls/hr IV . Q24H [facility] Rx#:[id number] Sodium Chloride 0.9% 500 120 70 ml @ 20 mls/hr IV .Q24H [facility] Rx#:[id number] Oral 1240 Other: Voiding Method Toilet Toilet Toilet # Voids 1 4 - Exam GENERAL: The patient alert and unable to his orientation does talk, he has underlying mental retardation. Cannot obtain useful information from the patient. No signs of any apparent reading distress. He is still active and does not look lethargic. HEENT: Pupils are round and equally reacting to light. EOMI. No scleral icterus. No conjunctival pallor. Normocephalic, atraumatic. No pharyngeal erythema. No thyromegaly. CARDIOVASCULAR: S1 and S2 present. No murmurs, rubs, or gallops. PULMONARY: Diminished lung sounds bilaterally, no crackles, no rhonchi ABDOMEN: Soft, nontender, nondistended, normoactive bowel sounds. No palpable organomegaly. MUSCULOSKELETAL: No joint swelling or deformity. EXTREMITIES: No cyanosis, clubbing, or pedal edema. NEUROLOGICAL: Gross neurological examination did not reveal any focal deficits. SKIN: No rashes. - Labs CBC & Chem 7: 11/30/17 07:57 11/30/17 07:57 Labs: Abnormal Lab Results - Last 24 Hours (Table) 11/29/17 11/29/17 11/30/17 Range/Units 17:18 20:23 07:26 RBC (4.30-5.90) m/uL Hct (39.0-53.0) % Chloride (98-107) mmol/L Carbon Dioxide (22-30) mmol/L BUN (9-20) mg/dL Glucose (74-99) mg/dL POC Glucose (mg/dL) 252 H 257 H 159 H (75-99) mg/dL ALT (21-72) U/L Alkaline Phosphatase (38-126) U/L Total Protein (6.3-8.2) g/dL Albumin (3.5-5.0) g/dL 11/30/17 11/30/17 11/30/17 Range/Units 07:57 07:57 11:25 RBC 4.26 L (4.30-5.90) m/uL Hct 38.7 L (39.0-53.0) % Chloride 97 L (98-107) mmol/L Carbon Dioxide 34 H (22-30) mmol/L BUN 31 H (9-20) mg/dL Glucose 148 H (74-99) mg/dL POC Glucose (mg/dL) 138 H (75-99) mg/dL ALT 75 H (21-72) U/L Alkaline Phosphatase 25 L (38-126) U/L Total Protein 6.0 L (6.3-8.2) g/dL Albumin 3.2 L (3.5-5.0) g/dL Microbiology - Last 24 Hours (Table) 11/27/17 11:05 Blood Culture - Preliminary Blood No Growth after 72 hours Assessment and Plan Plan: Assessment: 1 acute hypoxic respiratory failure, still on oxygen at 4 L of oxygen by nasal cannula 2 acute bilateral pulmonary infiltrates. Rule out viral pneumonia. Rule out atypical pneumonia. Underlying cardiogenic pulmonary edema is felt to be less likely. The patient is developing a left perihilar infiltrate which is more consistent with pneumonia this point. Echocardiogram showed a preserved LV function with an ejection fraction of 55-60% 3 Saw silver syndrome 4 obesity. 5 hypothyroidism 6 hypertension 7 hyperlipidemia 8 diabetes mellitus type 2 9 mental retardation 10 mild rhabdomyolysis 11 mild transaminitis, improving Plan Today's chest x-ray has been reviewed by Dr. Patel, stable in appearance. Clinically patient continues to improve, no wheezes, no rales noted. Continue weaning FiO2, continue with current treatment, current antibiotic coverage IV steroids, nebulized treatments. I performed a history & physical examination of the patient and discussed their management with my nurse practitioner, Marta Daniels. I reviewed the nurse practitioner's note and agree with the documented findings and plan of care. Lung sounds are diminished. The findings and the impression was discussed with the patient. I attest to the documentation by the nurse practitioner. Time with Patient: Less than 30
[2017-11-30 17:30] LABS: Glucose,Whole Blood 336 mg/dL (75-99)
--- NOTE | 2017-11-30 19:20 | P.PN ---
Subjective Progress Note Date: 11/30/17 Progress note being dictated for Dr. 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 Patient has diffuse infiltrate although patient doesn't have any elevated BNP. Clinically does not appear to have CHF. Patient was comparing of cough with clear sputum production. But suggestive and the patient. Although his symptoms has been going on for couple days. Review of Systems REVIEW OF SYSTEMS: CONSTITUTIONAL: As mentioned in HPI HEENT: No recent visual problems or hearing problems. Denied any sore throat. CARDIOVASCULAR: No chest pain, orthopnea, PND, no palpitations, no syncope. PULMONARY: As mentioned in HPI GASTROINTESTINAL: No diarrhea, no nausea, no vomiting, no abdominal pain. Normoactive bowel sounds. NEUROLOGICAL: No headaches, no weakness, no numbness. HEMATOLOGICAL: Denies any bleeding or petechiae. GENITOURINARY: Denies any burning micturition, frequency, or urgency. MUSCULOSKELETAL/RHEUMATOLOGICAL: Denies any joint pain, swelling, or any muscle pain. ENDOCRINE: Denies any polyuria or polydipsia. The rest of the 14-point review of systems is negative. 11/28/2017. Maintained on Levaquin, Lasix, nebulized bronchodilators, IV steroids .Evaluated by pulmonary and cardiology with recommendations noted. Chest x-ray limited, reporting developed a left perihilar infiltrate/patchy density. Breathing continues to improve with less wheezing. Less congested nonproductive cough. Afebrile. Echo limited study, reporting normal LV function, EF 55-60%. LFTs improving. 11/29/17 no overnight events. Chest x-ray reporting improvement. Weaning of oxygen in progress. Afebrile 11/30/2017. maintained on Levaquin, nebulized bronchodilators and IV steroids. breathing improving. Oxygen further tapered down to 2 L nasal cannula. chest x -ray reporting questionable perihilar increased density.afebrile. Objective - Vital Signs Vital signs: Vital Signs Temp 98.6 F 11/30/17 15:00 Pulse 84 11/30/17 17:06 Resp 18 11/30/17 16:00 BP 135/81 11/30/17 15:00 Pulse Ox 91 L 11/30/17 15:00 Intake & Output 11/30/17 11/30/17 12/01/17 06:59 18:59 06:59 Intake Total 1360 70 Balance 1360 70 Intake: Intake, IV Titration 120 70 Amount Sodium Chloride 0.9% 500 120 70 ml @ 20 mls/hr IV .Q24H [facility] Rx#:[id number] Oral 1240 Other: Voiding Method Toilet Toilet # Voids 4 - Exam GENERAL: The patient alert , sitting up in chair, no acute distress, unable to do his orientation, does talk, underlying mentally delayed. HEENT: Pupils are round and equally reacting to light. EOMI. No scleral icterus. No conjunctival pallor. Normocephalic, atraumatic. No pharyngeal erythema. No thyromegaly. CARDIOVASCULAR: S1 and S2 present. No murmurs, rubs, or gallops. PULMONARY: diminished bilaterally with no wheezing, rhonchi or crackles ABDOMEN: Soft, nontender, nondistended, normoactive bowel sounds. No palpable organomegaly. MUSCULOSKELETAL: No joint swelling or deformity. EXTREMITIES: No cyanosis, clubbing, no pedal edema. NEUROLOGICAL: Gross neurological examination did not reveal any focal deficits. SKIN: No rashes. - Labs CBC & Chem 7: 11/30/17 07:57 11/30/17 07:57 Labs: Abnormal Lab Results - Last 24 Hours (Table) 11/29/17 11/30/17 11/30/17 Range/Units 20:23 07:26 07:57 RBC 4.26 L (4.30-5.90) m/uL Hct 38.7 L (39.0-53.0) % Chloride (98-107) mmol/L Carbon Dioxide (22-30) mmol/L BUN (9-20) mg/dL Glucose (74-99) mg/dL POC Glucose (mg/dL) 257 H 159 H (75-99) mg/dL ALT (21-72) U/L Alkaline Phosphatase (38-126) U/L Total Protein (6.3-8.2) g/dL Albumin (3.5-5.0) g/dL 11/30/17 11/30/17 11/30/17 Range/Units 07:57 11:25 17:27 RBC (4.30-5.90) m/uL Hct (39.0-53.0) % Chloride 97 L (98-107) mmol/L Carbon Dioxide 34 H (22-30) mmol/L BUN 31 H (9-20) mg/dL Glucose 148 H (74-99) mg/dL POC Glucose (mg/dL) 138 H 336 H (75-99) mg/dL ALT 75 H (21-72) U/L Alkaline Phosphatase 25 L (38-126) U/L Total Protein 6.0 L (6.3-8.2) g/dL Albumin 3.2 L (3.5-5.0) g/dL Microbiology - Last 24 Hours (Table) 11/27/17 11:05 Blood Culture - Preliminary Blood No Growth after 72 hours Assessment and Plan Assessment: 1 acute hypoxic respiratory failure: Secondary to possible while bronchitis or pneumonia although atypical pneumonia cannot be ruled out along with the asthma exacerbation. -Possibly of atypical pneumonia or viral pneumonia -Type 2 diabetes mellitus -Elevated liver enzymes and elevated CK secondary to infection, improving -SHABANA Silver Syndrome Plan: Continue on current medication regime ,monitoring and symptomatic treatment. Maintain nebulized bronchodilators, steroids, antibiotics. Aggressive pulmonary toileting. Weaning of FiO2,steroid as per pulmonary. Close monitoring of Accu-Cheks. Follow closely with pulmonary. The impression and plan of care has been dictated as directed. : I performed a history and examination of this patient, discussed the same with the dictator. I agree with the dictator's note ,documented as a scribe. Any additional findings or plans will be noted.
[2017-11-30 20:09] LABS: Glucose,Whole Blood 221 mg/dL (75-99)
[2017-11-30] MEDS: risperiDONE 0.5 MG TAB PO SCH (20:55)
[2017-11-30] MEDS: DIVALPROEX 500 MG TABLET.DR PO SCH (20:55)
[2017-11-30] MEDS: ATORVASTATIN 10 MG TAB PO SCH (20:55)
[2017-11-30] MEDS: INSULIN DETEMIR 100 UNIT/ML 10 ML VIAL SQ SCH (21:04)
[2017-12-01] MEDS: LEVOTHYROXINE 75 MCG TAB PO SCH ×2 (06:37→07:20)
[2017-12-01 07:28] LABS: Glucose,Whole Blood 179 mg/dL (75-99)
[2017-12-01] MEDS: GLIMEPIRIDE 2 MG TAB PO SCH ×2 (07:49→17:54)
[2017-12-01] MEDS: FENOFIBRATE 160 MG TAB PO SCH (07:49)
[2017-12-01] MEDS: PANTOPRAZOLE 40 MG TABLET PO SCH (07:49)
[2017-12-01] MEDS: LOSARTAN 50 MG TAB PO SCH (07:50)
[2017-12-01] MEDS: PROPRANOLOL 20 MG TAB PO SCH ×2 (07:50→21:08)
[2017-12-01] MEDS: PIOGLITAZONE 15 MG TAB PO SCH (07:50)
[2017-12-01] MEDS: INSULIN ASPART 100 UNIT/ML 1 ML 10 ML VIAL SQ SCH ×7 (07:52→21:09)
[2017-12-01] MEDS: IPRATROPIUM-ALBUTEROL 3 ML NEB INHALATION SCH ×4 (08:47→19:38)
[2017-12-01] MEDS: methylPREDNISolone SOD SUCCI 40 MG/ML 1 ML VIAL IV SCH ×2 (09:08→21:07)
[2017-12-01 11:44] LABS: Glucose,Whole Blood 252 mg/dL (75-99)
[2017-12-01] MEDS: LEVOFLOXACIN 500 MG TAB PO SCH (12:38)
--- NOTE | 2017-12-01 15:58 | P.PN ---
Subjective Progress Note Date: 12/01/17 Progress note being dictated for Dr. 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 Patient has diffuse infiltrate although patient doesn't have any elevated BNP. Clinically does not appear to have CHF. Patient was comparing of cough with clear sputum production. But suggestive and the patient. Although his symptoms has been going on for couple days. Review of Systems REVIEW OF SYSTEMS: CONSTITUTIONAL: As mentioned in HPI HEENT: No recent visual problems or hearing problems. Denied any sore throat. CARDIOVASCULAR: No chest pain, orthopnea, PND, no palpitations, no syncope. PULMONARY: As mentioned in HPI GASTROINTESTINAL: No diarrhea, no nausea, no vomiting, no abdominal pain. Normoactive bowel sounds. NEUROLOGICAL: No headaches, no weakness, no numbness. HEMATOLOGICAL: Denies any bleeding or petechiae. GENITOURINARY: Denies any burning micturition, frequency, or urgency. MUSCULOSKELETAL/RHEUMATOLOGICAL: Denies any joint pain, swelling, or any muscle pain. ENDOCRINE: Denies any polyuria or polydipsia. The rest of the 14-point review of systems is negative. 11/28/2017. Maintained on Levaquin, Lasix, nebulized bronchodilators, IV steroids .Evaluated by pulmonary and cardiology with recommendations noted. Chest x-ray limited, reporting developed a left perihilar infiltrate/patchy density. Breathing continues to improve with less wheezing. Less congested nonproductive cough. Afebrile. Echo limited study, reporting normal LV function, EF 55-60%. LFTs improving. 11/29/17 no overnight events. Chest x-ray reporting improvement. Weaning of oxygen in progress. Afebrile 11/30/2017. maintained on Levaquin, nebulized bronchodilators and IV steroids. breathing improving. Oxygen further tapered down to 2 L nasal cannula. chest x -ray reporting questionable perihilar increased density.afebrile. 12/01/2017 no overnight events. Breathing continues to improve. O2 sats improving on 2 L nasal cannula, now up to 95%. Remains on IV steroids, blood sugars elevated. Afebrile. Objective - Vital Signs Vital signs: Vital Signs Temp 98.7 F 12/01/17 09:07 Pulse 72 12/01/17 14:50 Resp 20 12/01/17 14:50 BP 108/71 12/01/17 09:07 Pulse Ox 95 12/01/17 09:07 Intake & Output 11/30/17 12/01/17 12/01/17 18:59 06:59 18:59 Intake Total 70 140 Balance 70 140 Intake: Intake, IV Titration 70 140 Amount Sodium Chloride 0.9% 500 70 140 ml @ 20 mls/hr IV .Q24H [facility] Rx#:[id number] Other: Voiding Method Toilet Toilet Toilet # Voids 2 # Bowel Movements 3 - Exam GENERAL: The patient alert , sitting up in chair, no acute distress, unable to do his orientation, does talk, underlying mentally delayed. HEENT: Pupils are round and equally reacting to light. EOMI. No scleral icterus. No conjunctival pallor. Normocephalic, atraumatic. CARDIOVASCULAR: S1 and S2 present. No murmurs, rubs, or gallops. PULMONARY: diminished bilaterally with no wheezing, rhonchi or crackles ABDOMEN: Soft, nontender, nondistended, normoactive bowel sounds. No palpable organomegaly. MUSCULOSKELETAL: No joint swelling or deformity. EXTREMITIES: No cyanosis, clubbing, no pedal edema. NEUROLOGICAL: Gross neurological examination did not reveal any focal deficits. - Labs CBC & Chem 7: 11/30/17 07:57 11/30/17 07:57 Labs: Abnormal Lab Results - Last 24 Hours (Table) 11/30/17 11/30/17 12/01/17 Range/Units 17:27 20:07 07:26 POC Glucose (mg/dL) 336 H 221 H 179 H (75-99) mg/dL 12/01/17 Range/Units 11:29 POC Glucose (mg/dL) 252 H (75-99) mg/dL Microbiology - Last 24 Hours (Table) 11/27/17 11:05 Blood Culture - Preliminary Blood No Growth after 96 hours Assessment and Plan Assessment: 1 acute hypoxic respiratory failure: Secondary to possible while bronchitis or pneumonia although atypical pneumonia cannot be ruled out along with the asthma exacerbation. -Possibly of atypical pneumonia or viral pneumonia -Type 2 diabetes mellitus -Elevated liver enzymes and elevated CK secondary to infection, improving -SHABANA Silver Syndrome Plan: Continue on current medication regime ,monitoring and symptomatic treatment. Maintain nebulized bronchodilators, steroids, antibiotics. Aggressive pulmonary toileting. Levemir dose increased, close monitoring of Accu-Cheks. Steroid tapering as per pulmonary. Discharge planning in progress for tomorrow pending pulmonary clearance. The impression and plan of care has been dictated as directed. : I performed a history and examination of this patient, discussed the same with the dictator. I agree with the dictator's note ,documented as a scribe. Any additional findings or plans will be noted.
--- NOTE | 2017-12-01 16:07 | P.PN ---
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 The patient has increased cough. He is having some increased difficulty breathing. No reported fever chills or night sweats. Most of the information is obtained from the guardian. No family is available. The patient's influenza screen for a and B was negative. The patient had a chest x-ray that showed breath and pulmonary infiltrates with increased interstitial pattern. Known history of any congestion heart failure. No valvular heart disease. No history of congenital heart disease. No swelling in the lower extremities. No leukocytosis and the white cell count is at 5.7. Rest of the blood work and electrodes are all within normal limits. The CPK is mildly elevated at 1386. The troponin is negative. EKG showing a normal sinus rhythm. The patient is still interactive. His communicating. He is pleasant and on and off laughing. He was placed on IV Lasix. He was also placed on IV Solu-Medrol. He was placed on empiric antibiotic coverage with Levaquin. He is also on DuoNeb neb last treatment [id number]. He will be moved to the medical floor. Patient was desaturating and his pulse ox was dropping below 90% and currently is on oxygen at 3 L/m nasal cannula. On today's evaluation of 11/28/2017 the patient is being seen for a follow-up. The patient remains on oxygen at 4 L of oxygen by nasal cannula. A repeat chest x-ray was done. It was a poor respiratory film. There was evidence of cardiomegaly. There is also evidence of left perihilar patchy density which may reflect an underlying infiltrate or developing pneumonia. The patient is less focused spastic and wheezy compared to yesterday. The patient is afebrile. The patient is tolerating his diet. No aspiration. He is very happy and interactive. He has a congested cough. Unable to bring up much sputum. Denies having any chest pain. He is ambulating. The echocardiogram was also done. It was a technically difficult study for assessment of the left ventricular function. The patient's ejection fraction was 55-60%. Valves cannot be accurately seen. The patient currently is on Levaquin. The patient is also on Lasix 20 mg IV 3 times a day. The patient is on DuoNeb nebulized she was around the clock. The patient is on IV Solu Medrol 40 mg every 12 hours. On 11/29/2017 patient is seen in follow-up. He denies any acute distress. His chest x-ray was reviewed, and shows improvement in the appearance of pulmonary vascularity. Remains on 4 L per nasal cannula with his pulse ox of 93%. Afebrile, vital signs stable. Lung sounds are improved, less crackles noted on today's exam. Continue weaning FiO2, continue current treatment, with Levaquin , nebulized treatments, and IV steroids. On 11/30/2017 patient seen in follow-up. He is sitting in the chair, denies any acute distress. He's on 3 L per nasal cannula, with pulse ox at 93%. His room air oxygen was 88%, we will decrease the FiO2 down to 2 L. He remains afebrile, vital signs are stable. Lung sounds are negative for any rhonchi, wheezes or rales. Denies any fever or chills. Continues on empiric antibiotics in the form of Levaquin, nebulized treatments, and IV steroids. Repeat chest x-ray was obtained, and reviewed by Dr. Patel, pulmonary artery and central vascularity, with questionable perihilar density. Clinically patient denies any worsening dyspnea. Denies any chest pain. Continue current plan, continue weaning FiO2, and IV steroids. On 12/01/2017 patient seen in follow-up. Sitting on the edge the bed, denies any acute distress, currently on 2 L per nasal cannula with pulse ox of 95%. Room air pulse ox was down to 89%. No worsening dyspnea, no chest congestion patient's cough is dry. Yesterday his chest x-ray was reviewed, and showed stable findings which showed pulmonary artery and central vascularity, and questionable perihilar density, but clinically patient continues to improve. Vital signs remain stable, patient remained remains afebrile. Continue to increase activity as tolerated, will continue with current treatment for another 24 hours, if he continues to improve we'll consider discharge home tomorrow. Objective - Vital Signs Vital signs: Vital Signs Temp 98.7 F 12/01/17 09:07 Pulse 72 12/01/17 14:50 Resp 18 12/01/17 15:51 BP 108/71 12/01/17 09:07 Pulse Ox 95 12/01/17 09:07 Intake & Output 11/30/17 12/01/17 12/01/17 18:59 06:59 18:59 Intake Total 70 140 Balance 70 140 Intake: Intake, IV Titration 70 140 Amount Sodium Chloride 0.9% 500 70 140 ml @ 20 mls/hr IV .Q24H [facility], [facility]–1983 Rx#:[id number] Other: Voiding Method Toilet Toilet Toilet # Voids 2 # Bowel Movements 3 - Exam GENERAL: The patient alert and unable to his orientation does talk, he has underlying mental retardation. Cannot obtain useful information from the patient. No signs of any apparent reading distress. He is still active and does not look lethargic. HEENT: Pupils are round and equally reacting to light. EOMI. No scleral icterus. No conjunctival pallor. Normocephalic, atraumatic. No pharyngeal erythema. No thyromegaly. CARDIOVASCULAR: S1 and S2 present. No murmurs, rubs, or gallops. PULMONARY: Diminished lung sounds bilaterally, no crackles, no rhonchi ABDOMEN: Soft, nontender, nondistended, normoactive bowel sounds. No palpable organomegaly. MUSCULOSKELETAL: No joint swelling or deformity. EXTREMITIES: No cyanosis, clubbing, or pedal edema. NEUROLOGICAL: Gross neurological examination did not reveal any focal deficits. SKIN: No rashes. - Labs CBC & Chem 7: 11/30/17 07:57 11/30/17 07:57 Labs: Abnormal Lab Results - Last 24 Hours (Table) 11/30/17 11/30/17 12/01/17 Range/Units 17:27 20:07 07:26 POC Glucose (mg/dL) 336 H 221 H 179 H (75-99) mg/dL 12/01/17 Range/Units 11:29 POC Glucose (mg/dL) 252 H (75-99) mg/dL Microbiology - Last 24 Hours (Table) 11/27/17 11:05 Blood Culture - Preliminary Blood No Growth after 96 hours Assessment and Plan Plan: Assessment: 1 acute hypoxic respiratory failure, still on oxygen at 4 L of oxygen by nasal cannula 2 acute bilateral pulmonary infiltrates. Rule out viral pneumonia. Rule out atypical pneumonia. Underlying cardiogenic pulmonary edema is felt to be less likely. The patient is developing a left perihilar infiltrate which is more consistent with pneumonia this point. Echocardiogram showed a preserved LV function with an ejection fraction of 55-60% 3 Saw silver syndrome 4 obesity. 5 hypothyroidism 6 hypertension 7 hyperlipidemia 8 diabetes mellitus type 2 9 mental retardation 10 mild rhabdomyolysis 11 mild transaminitis, improving Plan We'll continue current treatment, continue weaning FiO2, rare pulse ox was 89%, his FiO2 can be brought down to 1 L per nasal cannula. Increase activity as tolerated, we will reevaluate in 24 hours, patient clinically continues to improve. May consider discharge in the next 24 hours provided patient remains stable I performed a history & physical examination of the patient and discussed their management with my nurse practitioner, Marta Daniels. I reviewed the nurse practitioner's note and agree with the documented findings and plan of care. Lung sounds are diminished. The findings and the impression was discussed with the patient. I attest to the documentation by the nurse practitioner. Time with Patient: Less than 30
[2017-12-01 16:39] LABS: Glucose,Whole Blood 320 mg/dL (75-99)
[2017-12-01 20:22] LABS: Glucose,Whole Blood 297 mg/dL (75-99)
[2017-12-01] MEDS: risperiDONE 0.5 MG TAB PO SCH (21:08)
[2017-12-01] MEDS: ATORVASTATIN 10 MG TAB PO SCH (21:08)
[2017-12-01] MEDS: DIVALPROEX 500 MG TABLET.DR PO SCH (21:08)
[2017-12-01] MEDS: INSULIN DETEMIR 100 UNIT/ML 10 ML VIAL SQ SCH (21:10)
[2017-12-01] MEDS: SODIUM CHLORIDE 0.9% 500 ML IV SCH (22:09)
[2017-12-02 07:32] LABS: Glucose,Whole Blood 216 mg/dL (75-99)
[2017-12-02] MEDS: GLIMEPIRIDE 2 MG TAB PO SCH ×2 (08:01→17:38)
[2017-12-02] MEDS: LEVOTHYROXINE 75 MCG TAB PO SCH (08:02)
[2017-12-02] MEDS: INSULIN ASPART 100 UNIT/ML 1 ML 10 ML VIAL SQ SCH ×7 (08:03→21:39)
[2017-12-02] MEDS: methylPREDNISolone SOD SUCCI 40 MG/ML 1 ML VIAL IV SCH ×2 (08:04→21:39)
[2017-12-02] MEDS: FENOFIBRATE 160 MG TAB PO SCH (08:04)
[2017-12-02] MEDS: PANTOPRAZOLE 40 MG TABLET PO SCH (08:04)
[2017-12-02] MEDS: LOSARTAN 50 MG TAB PO SCH (08:04)
[2017-12-02] MEDS: PIOGLITAZONE 15 MG TAB PO SCH (08:05)
[2017-12-02] MEDS: PROPRANOLOL 20 MG TAB PO SCH ×2 (08:05→21:38)
[2017-12-02] MEDS: IPRATROPIUM-ALBUTEROL 3 ML NEB INHALATION SCH ×4 (08:40→18:49)
[2017-12-02 12:15] LABS: Glucose,Whole Blood 200 mg/dL (75-99)
--- NOTE | 2017-12-02 12:46 | P.PN ---
Subjective Progress Note Date: 12/02/17 Principal diagnosis: Acute hypoxic respiratory failure secondary to bilateral pulmonary infiltrates suspect viral pneumonia versus atypical pneumonia versus cardiogenic pulmonary edema A 31-year-old male patient, known case of Down syndrome and mentally challenged , known case of Saw Silver syndrome, presenting to the hospital because of increased shortness of breath chest tightness and wheezing. The patient has increased cough. He is having some increased difficulty breathing. No reported fever chills or night sweats. Most of the information is obtained from the guardian. No family is available. The patient's influenza screen for a and B was negative. The patient had a chest x-ray that showed breath and pulmonary infiltrates with increased interstitial pattern. Known history of any congestion heart failure. No valvular heart disease. No history of congenital heart disease. No swelling in the lower extremities. No leukocytosis and the white cell count is at 5.7. Rest of the blood work and electrodes are all within normal limits. The CPK is mildly elevated at 1386. The troponin is negative. EKG showing a normal sinus rhythm. The patient is still interactive. His communicating. He is pleasant and on and off laughing. He was placed on IV Lasix. He was also placed on IV Solu-Medrol. He was placed on empiric antibiotic coverage with Levaquin. He is also on DuoNeb neb last treatment [id number]. He will be moved to the medical floor. Patient was desaturating and his pulse ox was dropping below 90% and currently is on oxygen at 3 L/m nasal cannula. On today's evaluation of 11/28/2017 the patient is being seen for a follow-up. The patient remains on oxygen at 4 L of oxygen by nasal cannula. A repeat chest x-ray was done. It was a poor respiratory film. There was evidence of cardiomegaly. There is also evidence of left perihilar patchy density which may reflect an underlying infiltrate or developing pneumonia. The patient is less focused spastic and wheezy compared to yesterday. The patient is afebrile. The patient is tolerating his diet. No aspiration. He is very happy and interactive. He has a congested cough. Unable to bring up much sputum. Denies having any chest pain. He is ambulating. The echocardiogram was also done. It was a technically difficult study for assessment of the left ventricular function. The patient's ejection fraction was 55-60%. Valves cannot be accurately seen. The patient currently is on Levaquin. The patient is also on Lasix 20 mg IV 3 times a day. The patient is on DuoNeb nebulized she was around the clock. The patient is on IV Solu Medrol 40 mg every 12 hours. On 11/29/2017 patient is seen in follow-up. He denies any acute distress. His chest x-ray was reviewed, and shows improvement in the appearance of pulmonary vascularity. Remains on 4 L per nasal cannula with his pulse ox of 93%. Afebrile, vital signs stable. Lung sounds are improved, less crackles noted on today's exam. Continue weaning FiO2, continue current treatment, with Levaquin , nebulized treatments, and IV steroids. On 11/30/2017 patient seen in follow-up. He is sitting in the chair, denies any acute distress. He's on 3 L per nasal cannula, with pulse ox at 93%. His room air oxygen was 88%, we will decrease the FiO2 down to 2 L. He remains afebrile, vital signs are stable. Lung sounds are negative for any rhonchi, wheezes or rales. Denies any fever or chills. Continues on empiric antibiotics in the form of Levaquin, nebulized treatments, and IV steroids. Repeat chest x-ray was obtained, and reviewed by Dr. Patel, pulmonary artery and central vascularity, with questionable perihilar density. Clinically patient denies any worsening dyspnea. Denies any chest pain. Continue current plan, continue weaning FiO2, and IV steroids. On 12/01/2017 patient seen in follow-up. Sitting on the edge the bed, denies any acute distress, currently on 2 L per nasal cannula with pulse ox of 95%. Room air pulse ox was down to 89%. No worsening dyspnea, no chest congestion patient's cough is dry. Yesterday his chest x-ray was reviewed, and showed stable findings which showed pulmonary artery and central vascularity, and questionable perihilar density, but clinically patient continues to improve. Vital signs remain stable, patient remained remains afebrile. Continue to increase activity as tolerated, will continue with current treatment for another 24 hours, if he continues to improve we'll consider discharge home tomorrow. The patient is seen again today 12/02/2017 in follow-up on the regular medical floor. He is currently awake and alert in no acute distress. He has been afebrile. Hemodynamically stable. He is currently on oxygen at 1 L/m per nasal cannula maintaining good O2 saturations in the 90s. Blood culture reveals no growth to date. He is requesting to stay until tomorrow. Objective - Vital Signs Vital signs: Vital Signs Temp 97.8 F 12/02/17 07:00 Pulse 85 12/02/17 11:43 Resp 18 12/02/17 07:00 BP 126/85 12/02/17 07:00 Pulse Ox 94 L 12/02/17 07:00 Intake & Output 12/01/17 12/02/17 12/02/17 18:59 06:59 18:59 Intake Total 140 230 120 Balance 140 230 120 Intake: Intake, IV Titration 140 230 Amount Sodium Chloride 0.9% 500 140 230 ml @ 20 mls/hr IV .Q24H [facility] Rx#:[id number] Oral 120 Other: Voiding Method Toilet Toilet # Bowel Movements 3 - Exam GENERAL EXAM: Features of Down syndrome. Alert, active, comfortable in no apparent distress. HEAD: Normocephalic. EYES: Normal reaction of pupils, equal size. NOSE: Clear with pink turbinates. THROAT: No erythema or exudates. NECK: No masses, no JVD. CHEST: No chest wall deformity. LUNGS: Equal air entry with no crackles, wheeze, rhonchi or dullness. CVS: S1 and S2 normal with no audible murmur, regular rhythm. ABDOMEN: No hepatosplenomegaly, normal bowel sounds, no guarding or rigidity. SPINE: No scoliosis or deformity SKIN: No rashes CENTRAL NERVOUS SYSTEM: No significant focal deficits, tone is normal in all 4 extremities. EXTREMITIES: There is no peripheral edema. Some deformities noted. Peripheral pulses are intact. - Labs CBC & Chem 7: 11/30/17 07:57 11/30/17 07:57 Labs: Abnormal Lab Results - Last 24 Hours (Table) 12/01/17 12/01/17 12/02/17 Range/Units 16:36 20:20 07:14 POC Glucose (mg/dL) 320 H 297 H 216 H (75-99) mg/dL 12/02/17 Range/Units 12:13 POC Glucose (mg/dL) 200 H (75-99) mg/dL Microbiology - Last 24 Hours (Table) 11/27/17 11:05 Blood Culture - Preliminary Blood No Growth after 96 hours Assessment and Plan Assessment: Assessment: 1 acute hypoxic respiratory failure, still on oxygen at 1 L of oxygen by nasal cannula 2 acute bilateral pulmonary infiltrates. Rule out viral pneumonia. Rule out atypical pneumonia. Underlying cardiogenic pulmonary edema is felt to be less likely. The patient is developing a left perihilar infiltrate which is more consistent with pneumonia this point. Echocardiogram showed a preserved LV function with an ejection fraction of 55-60% 3 Saw silver syndrome 4 obesity. 5 hypothyroidism 6 hypertension 7 hyperlipidemia 8 diabetes mellitus type 2 9 mental retardation 10 mild rhabdomyolysis 11 mild transaminitis, improving Plan: The patient was seen and evaluated by Dr. Patel. He is currently stable from the pulmonary standpoint. We'll attempt to wean off his oxygen. We'll continue with his current medications for now. Probable discharge in the a.m. I, the cosigning physician, performed a history & physical examination of the patient. Lungs sounds are clear. Maintaining good O2 saturations in the 90s on 1 L/m per nasal cannula. I discussed the assessment and plan of care with my nurse practitioner, Daniella Zambrano. I attest to the above note as dictated by her.
[2017-12-02] MEDS: LEVOFLOXACIN 500 MG TAB PO SCH (12:52)
[2017-12-02 14:57] VITALS: RESP 16
[2017-12-02 16:42] LABS: Glucose,Whole Blood 274 mg/dL (75-99)
--- NOTE | 2017-12-02 16:59 | PN ---
PROGRESS NOTE DATE OF SERVICE: 12/02/2017. INTERVAL HISTORY: This 31-year-old gentleman admitted with bilateral pneumonia and as well as acute hypoxic respiratory failure is being closely monitored. Patient is feeling much better. Dr. Patel is planning probably discharge tomorrow. No chest pain. No palpitations. No fever. EXAM: Pulse 75, blood pressure 120/82, respiration 18 temperature 98.2, pulse ox 93% on 1 L. HEENT: Conjunctivae normal. NECK: No jugular venous distention. CARDIOVASCULAR: S1, S2. RESPIRATORY: Breath sounds diminished in the bases. A few scattered rhonchi and crackles. ABDOMEN: Soft, nontender. LEGS: No edema. NERVOUS SYSTEM: No focal deficits. LABS: Accu-Cheks 221, 297. ASSESSMENT: 1. Bilateral typical pneumonia with acute hypoxic respiratory failure. 2. Possible viral pneumonia. 3. Diabetes mellitus type 2. 4. Elevated liver enzymes. 5. Judson Silver syndrome. RECOMMENDATIONS AND DISCUSSION: I recommend to continue current management and symptomatic treatment. At this time we will monitor. Continue antibiotics. Bronchodilators. Closely monitor. Follow with Dr. Patel. Further recommendations to follow. MMODL / IJN: [id number] /
[2017-12-02 20:31] LABS: Glucose,Whole Blood 257 mg/dL (75-99)
[2017-12-02] MEDS: risperiDONE 0.5 MG TAB PO SCH (21:38)
[2017-12-02] MEDS: DIVALPROEX 500 MG TABLET.DR PO SCH (21:38)
[2017-12-02] MEDS: ATORVASTATIN 10 MG TAB PO SCH (21:38)
[2017-12-02] MEDS: INSULIN DETEMIR 100 UNIT/ML 10 ML VIAL SQ SCH (21:39)
[2017-12-02] MEDS: SODIUM CHLORIDE 0.9% 500 ML IV SCH (21:48)
[2017-12-03] MEDS: LEVOTHYROXINE 75 MCG TAB PO SCH (06:19)
[2017-12-03 07:37] LABS: Glucose,Whole Blood 218 mg/dL (75-99)
[2017-12-03] MEDS: PANTOPRAZOLE 40 MG TABLET PO SCH (07:39)
[2017-12-03] MEDS: GLIMEPIRIDE 2 MG TAB PO SCH (07:39)
[2017-12-03] MEDS: PIOGLITAZONE 15 MG TAB PO SCH (07:40)
[2017-12-03] MEDS: LOSARTAN 50 MG TAB PO SCH (07:40)
[2017-12-03] MEDS: FENOFIBRATE 160 MG TAB PO SCH (07:40)
[2017-12-03] MEDS: PROPRANOLOL 20 MG TAB PO SCH (07:41)
[2017-12-03] MEDS: methylPREDNISolone SOD SUCCI 40 MG/ML 1 ML VIAL IV SCH (07:41)
[2017-12-03] MEDS: INSULIN ASPART 100 UNIT/ML 1 ML 10 ML VIAL SQ SCH ×2 (08:02)
[2017-12-03] MEDS: IPRATROPIUM-ALBUTEROL 3 ML NEB INHALATION SCH ×2 (08:12→11:40)
[2017-12-03 08:19] VITALS: BP 117/70; TEMP 97.9
[2017-12-03 11:48] VITALS: PULSE 80
--- NOTE | 2017-12-03 13:04 | P.PN ---
Subjective Progress Note Date: 12/03/17 Acute hypoxic respiratory failure secondary to bilateral pulmonary infiltrates suspect viral pneumonia versus atypical pneumonia versus cardiogenic pulmonary edema A 31-year-old male patient, known case of Down syndrome and mentally challenged , known case of Saw Silver syndrome, presenting to the hospital because of increased shortness of breath chest tightness and wheezing. The patient has increased cough. He is having some increased difficulty breathing. No reported fever chills or night sweats. Most of the information is obtained from the guardian. No family is available. The patient's influenza screen for a and B was negative. The patient had a chest x-ray that showed breath and pulmonary infiltrates with increased interstitial pattern. Known history of any congestion heart failure. No valvular heart disease. No history of congenital heart disease. No swelling in the lower extremities. No leukocytosis and the white cell count is at 5.7. Rest of the blood work and electrodes are all within normal limits. The CPK is mildly elevated at 1386. The troponin is negative. EKG showing a normal sinus rhythm. The patient is still interactive. His communicating. He is pleasant and on and off laughing. He was placed on IV Lasix. He was also placed on IV Solu-Medrol. He was placed on empiric antibiotic coverage with Levaquin. He is also on DuoNeb neb last treatment [id number]. He will be moved to the medical floor. Patient was desaturating and his pulse ox was dropping below 90% and currently is on oxygen at 3 L/m nasal cannula. On today's evaluation of 11/28/2017 the patient is being seen for a follow-up. The patient remains on oxygen at 4 L of oxygen by nasal cannula. A repeat chest x-ray was done. It was a poor respiratory film. There was evidence of cardiomegaly. There is also evidence of left perihilar patchy density which may reflect an underlying infiltrate or developing pneumonia. The patient is less focused spastic and wheezy compared to yesterday. The patient is afebrile. The patient is tolerating his diet. No aspiration. He is very happy and interactive. He has a congested cough. Unable to bring up much sputum. Denies having any chest pain. He is ambulating. The echocardiogram was also done. It was a technically difficult study for assessment of the left ventricular function. The patient's ejection fraction was 55-60%. Valves cannot be accurately seen. The patient currently is on Levaquin. The patient is also on Lasix 20 mg IV 3 times a day. The patient is on DuoNeb nebulized she was around the clock. The patient is on IV Solu Medrol 40 mg every 12 hours. On 11/29/2017 patient is seen in follow-up. He denies any acute distress. His chest x-ray was reviewed, and shows improvement in the appearance of pulmonary vascularity. Remains on 4 L per nasal cannula with his pulse ox of 93%. Afebrile, vital signs stable. Lung sounds are improved, less crackles noted on today's exam. Continue weaning FiO2, continue current treatment, with Levaquin , nebulized treatments, and IV steroids. On 11/30/2017 patient seen in follow-up. He is sitting in the chair, denies any acute distress. He's on 3 L per nasal cannula, with pulse ox at 93%. His room air oxygen was 88%, we will decrease the FiO2 down to 2 L. He remains afebrile, vital signs are stable. Lung sounds are negative for any rhonchi, wheezes or rales. Denies any fever or chills. Continues on empiric antibiotics in the form of Levaquin, nebulized treatments, and IV steroids. Repeat chest x-ray was obtained, and reviewed by Dr. Patel, pulmonary artery and central vascularity, with questionable perihilar density. Clinically patient denies any worsening dyspnea. Denies any chest pain. Continue current plan, continue weaning FiO2, and IV steroids. On 12/01/2017 patient seen in follow-up. Sitting on the edge the bed, denies any acute distress, currently on 2 L per nasal cannula with pulse ox of 95%. Room air pulse ox was down to 89%. No worsening dyspnea, no chest congestion patient's cough is dry. Yesterday his chest x-ray was reviewed, and showed stable findings which showed pulmonary artery and central vascularity, and questionable perihilar density, but clinically patient continues to improve. Vital signs remain stable, patient remained remains afebrile. Continue to increase activity as tolerated, will continue with current treatment for another 24 hours, if he continues to improve we'll consider discharge home tomorrow. The patient is seen again today 12/02/2017 in follow-up on the regular medical floor. He is currently awake and alert in no acute distress. He has been afebrile. Hemodynamically stable. He is currently on oxygen at 1 L/m per nasal cannula maintaining good O2 saturations in the 90s. Blood culture reveals no growth to date. He is requesting to stay until tomorrow. On 8 the patient is looking well and the patient has no complaints. I think he is very happy staying here and he found himself a very friendly environment in the hospital and he gets very anxious when he is told that he is going to go home. He is not having any respiratory distress. Pulse ox on room air is above 90%. He may need some O2 at a later stage to be used overnight especially with his body habitus and with an underlying concern that he may have an alveolar hypoventilation overnight. Objective - Vital Signs Vital signs: Vital Signs Temp 97.9 F 12/03/17 07:00 Pulse 80 12/03/17 11:48 Resp 16 12/03/17 08:00 BP 117/70 12/03/17 07:00 Pulse Ox 92 L 12/03/17 07:00 Intake & Output 12/02/17 12/03/17 12/03/17 18:59 06:59 18:59 Intake Total 120 230 Balance 120 230 Intake: Intake, IV Titration 230 Amount Sodium Chloride 0.9% 500 230 ml @ 20 mls/hr IV .Q24H [facility] Rx#:[id number] Oral 120 Other: Voiding Method Toilet Toilet Toilet # Voids 2 - Exam GENERAL: The patient alert and unable to his orientation does talk, he has underlying mental retardation. Cannot obtain useful information from the patient. No signs of any apparent reading distress. He is still active and does not look lethargic. HEENT: Pupils are round and equally reacting to light. EOMI. No scleral icterus. No conjunctival pallor. Normocephalic, atraumatic. No pharyngeal erythema. No thyromegaly. CARDIOVASCULAR: S1 and S2 present. No murmurs, rubs, or gallops. PULMONARY: Adequate air entry bilaterally and the wheezing and a crackling is improved. ABDOMEN: Soft, nontender, nondistended, normoactive bowel sounds. No palpable organomegaly. MUSCULOSKELETAL: No joint swelling or deformity. EXTREMITIES: No cyanosis, clubbing, or pedal edema. NEUROLOGICAL: Gross neurological examination did not reveal any focal deficits. The patient has underlying mental retardation SKIN: No rashes. - Labs CBC & Chem 7: 11/30/17 07:57 11/30/17 07:57 Labs: Abnormal Lab Results - Last 24 Hours (Table) 12/02/17 12/02/17 12/03/17 Range/Units 16:34 20:30 07:19 POC Glucose (mg/dL) 274 H 257 H 218 H (75-99) mg/dL Microbiology - Last 24 Hours (Table) 11/27/17 11:05 Blood Culture - Preliminary Blood No Growth after 120 hours Assessment and Plan Plan: 1 acute hypoxic respiratory failure, improved considerably and the patient is back to his baseline 2 acute bilateral pulmonary infiltrates. Rule out viral pneumonia. Rule out atypical pneumonia. Underlying cardiogenic pulmonary edema is felt to be less likely. The patient is developing a left perihilar infiltrate which is more consistent with pneumonia this point. Echocardiogram showed a preserved LV function with an ejection fraction of 55-60% . The patient's pulmonary infiltration improved and he needs outpatient follow-up regarding a follow-up chest x-ray probably in a week time. 3 Saw silver syndrome 4 obesity. 5 hypothyroidism 6 hypertension 7 hyperlipidemia 8 diabetes mellitus type 2 9 mental retardation 10 mild rhabdomyolysis 11 mild transaminitis, improving Plan Discharge this patient home on a course of Levaquin and a prednisone burst taper to be followed up on outpatient basis in the office. Overall pulmonary status is stable for now.
--- NOTE | 2017-12-03 17:03 | P.DS ---
Providers Date of admission: 11/27/17 12:59 Expected date of discharge: 12/03/17 Attending physician: Jason Mccullough Consults: 11/27/17 12:59 Consult Physician Stat Consulting Provider: Nicki Patel Consult Reason/Comments: Dyspnea Do you want consulting provider notified?: Yes 11/27/17 13:08 Consult Physician Routine Consulting Provider: Guru Harrison Consult Reason/Comments: R/O Cardiac Pathology Do you want consulting provider notified?: Yes Primary care physician: Domingo Albarran [facility] Hospital Course: Discharge diagnosis 1 acute hypoxic respiratory failure: Secondary to possible while bronchitis or pneumonia although atypical pneumonia cannot be ruled out along with the asthma exacerbation. Currently saturating well on room air. -Possibly of atypical pneumonia or viral pneumonia -Type 2 diabetes mellitus -Elevated liver enzymes and elevated CK secondary to infection, improving -SHABANA Silver Syndrome - Moderate obesity with BMI 52. Possible underlying obesity hypoventilation neck Hospital course 31-year-old gentleman with history of Shabana-Silver syndrome came in with complaints of shortness of breath cough-like symptoms although influenza PCR is negative coughing and wheezing. Patient has diffuse infiltrate although patient doesn't have any elevated BNP. Clinically does not appear to have CHF. Patient was continued on breathing treatments and antibiotics in the form of levofloxacin along with prednisone. He did improve clinically. Patient did have hyperglycemia due to steroids which is controlled with insulin dosing. Patient is being discharged home with tapering dose of steroids and antibiotics. Pulmonary has seen the patient and patient is cleared for discharge. Discharge physical examination GENERAL: The patient alert , sitting up in chair, no acute distress, unable to do his orientation, does talk, underlying mentally delayed. HEENT: Pupils are round and equally reacting to light. EOMI. No scleral icterus. No conjunctival pallor. Normocephalic, atraumatic. CARDIOVASCULAR: S1 and S2 present. No murmurs, rubs, or gallops. PULMONARY: Improved bilateral air entry., No rhonchi or crackles. Prolonged expiration. No wheezing ABDOMEN: Soft, nontender, nondistended, normoactive bowel sounds. No palpable organomegaly. MUSCULOSKELETAL: No joint swelling or deformity. EXTREMITIES: No cyanosis, clubbing, no pedal edema. NEUROLOGICAL: Gross neurological examination did not reveal any focal deficits. Vital Signs 11/27/17 11/27/17 11/27/17 09:49 11:18 11:21 Temperature 101.4 F H Pulse Rate 91 92 Pulse Rate [ Bilateral Dorsalis Pedis] Pulse Rate [ Pulse Oximetery ] Pulse Rate [ Right] Respiratory 20 Rate Blood Pressure 106/57 Blood Pressure [Left Arm] Blood Pressure [Right Arm] O2 Sat by Pulse 84 L 93 L Oximetry 11/27/17 11/27/17 11/27/17 11:28 13:34 15:54 Temperature 97.0 F L Pulse Rate 97 80 82 Pulse Rate [ Bilateral Dorsalis Pedis] Pulse Rate [ Pulse Oximetery ] Pulse Rate [ Right] Respiratory 18 18 Rate Blood Pressure 130/76 Blood Pressure [Left Arm] Blood Pressure [Right Arm] O2 Sat by Pulse 93 L 93 L Oximetry 11/27/17 11/27/17 11/28/17 16:19 23:00 06:46 Temperature 100.1 F H 99.4 F Pulse Rate 93 Pulse Rate [ Bilateral Dorsalis Pedis] Pulse Rate [ Pulse Oximetery ] Pulse Rate [ 89 91 Right] Respiratory 20 16 Rate Blood Pressure Blood Pressure 120/59 [Left Arm] Blood Pressure 123/58 [Right Arm] O2 Sat by Pulse 92 L 89 L Oximetry 11/28/17 11/28/17 11/28/17 06:54 07:00 07:34 Temperature 99.2 F Pulse Rate 93 Pulse Rate [ Bilateral Dorsalis Pedis] Pulse Rate [ Pulse Oximetery ] Pulse Rate [ 93 Right] Respiratory 26 H Rate Blood Pressure Blood Pressure [Left Arm] Blood Pressure 117/56 [Right Arm] O2 Sat by Pulse 88 L 90 L Oximetry 11/28/17 11/28/17 11/28/17 08:00 08:01 14:52 Temperature 98.6 F 99.6 F Pulse Rate Pulse Rate [ Bilateral Dorsalis Pedis] Pulse Rate [ Pulse Oximetery ] Pulse Rate [ 91 91 61 Right] Respiratory 26 H 26 H 22 Rate Blood Pressure Blood Pressure 132/58 118/56 [Left Arm] Blood Pressure [Right Arm] O2 Sat by Pulse 91 L 89 L Oximetry 11/28/17 11/29/17 11/29/17 23:00 00:00 07:45 Temperature 97.6 F 98.3 F Pulse Rate Pulse Rate [ Bilateral Dorsalis Pedis] Pulse Rate [ Pulse Oximetery ] Pulse Rate [ 83 82 Right] Respiratory 16 16 28 H Rate Blood Pressure Blood Pressure 112/56 133/56 [Left Arm] Blood Pressure [Right Arm] O2 Sat by Pulse 91 L 93 L Oximetry 11/29/17 11/29/17 11/29/17 08:42 09:17 09:29 Temperature Pulse Rate 82 82 Pulse Rate [ 82 Bilateral Dorsalis Pedis] Pulse Rate [ Pulse Oximetery ] Pulse Rate [ Right] Respiratory 28 H Rate Blood Pressure Blood Pressure [Left Arm] Blood Pressure [Right Arm] O2 Sat by Pulse Oximetry 11/29/17 11/29/17 11/29/17 12:04 12:13 15:00 Temperature 98.3 F Pulse Rate 82 82 Pulse Rate [ Bilateral Dorsalis Pedis] Pulse Rate [ Pulse Oximetery ] Pulse Rate [ 80 Right] Respiratory 18 Rate Blood Pressure Blood Pressure 117/57 [Left Arm] Blood Pressure [Right Arm] O2 Sat by Pulse 90 L Oximetry 11/29/17 11/29/17 11/29/17 16:56 17:07 21:28 Temperature Pulse Rate 80 82 80 Pulse Rate [ Bilateral Dorsalis Pedis] Pulse Rate [ Pulse Oximetery ] Pulse Rate [ Right] Respiratory Rate Blood Pressure Blood Pressure [Left Arm] Blood Pressure [Right Arm] O2 Sat by Pulse Oximetry 11/29/17 11/29/17 11/30/17 21:49 23:00 00:00 Temperature 98.1 F Pulse Rate 84 Pulse Rate [ Bilateral Dorsalis Pedis] Pulse Rate [ 70 Pulse Oximetery ] Pulse Rate [ Right] Respiratory 16 16 Rate Blood Pressure Blood Pressure 126/56 [Left Arm] Blood Pressure [Right Arm] O2 Sat by Pulse 93 L Oximetry 11/30/17 11/30/17 11/30/17 08:00 08:50 09:00 Temperature 97.6 F Pulse Rate 82 80 Pulse Rate [ Bilateral Dorsalis Pedis] Pulse Rate [ 66 Pulse Oximetery ] Pulse Rate [ Right] Respiratory 20 Rate Blood Pressure Blood Pressure 116/66 [Left Arm] Blood Pressure [Right Arm] O2 Sat by Pulse 93 L Oximetry 11/30/17 11/30/17 11/30/17 10:05 11:52 12:02 Temperature Pulse Rate 84 88 Pulse Rate [ Bilateral Dorsalis Pedis] Pulse Rate [ 66 Pulse Oximetery ] Pulse Rate [ Right] Respiratory 18 Rate Blood Pressure Blood Pressure [Left Arm] Blood Pressure [Right Arm] O2 Sat by Pulse Oximetry 11/30/17 11/30/17 11/30/17 13:38 15:00 15:41 Temperature 98.6 F Pulse Rate Pulse Rate [ Bilateral Dorsalis Pedis] Pulse Rate [ 73 Pulse Oximetery ] Pulse Rate [ Right] Respiratory 20 18 18 Rate Blood Pressure Blood Pressure 135/81 [Left Arm] Blood Pressure [Right Arm] O2 Sat by Pulse 92 L 91 L Oximetry 11/30/17 11/30/17 11/30/17 16:00 16:54 17:06 Temperature Pulse Rate 84 84 Pulse Rate [ Bilateral Dorsalis Pedis] Pulse Rate [ 73 Pulse Oximetery ] Pulse Rate [ Right] Respiratory 18 Rate Blood Pressure Blood Pressure [Left Arm] Blood Pressure [Right Arm] O2 Sat by Pulse Oximetry 11/30/17 11/30/17 11/30/17 20:24 21:06 22:41 Temperature 98.0 F Pulse Rate 82 Pulse Rate [ Bilateral Dorsalis Pedis] Pulse Rate [ 72 72 Pulse Oximetery ] Pulse Rate [ 80 Right] Respiratory 18 18 Rate Blood Pressure Blood Pressure 116/54 [Left Arm] Blood Pressure [Right Arm] O2 Sat by Pulse 98 Oximetry 12/01/17 12/01/17 12/01/17 08:49 08:57 09:07 Temperature 98.7 F Pulse Rate 86 86 Pulse Rate [ Bilateral Dorsalis Pedis] Pulse Rate [ 58 L Pulse Oximetery ] Pulse Rate [ Right] Respiratory 18 Rate Blood Pressure Blood Pressure 108/71 [Left Arm] Blood Pressure [Right Arm] O2 Sat by Pulse 95 Oximetry 12/01/17 12/01/17 12/01/17 11:56 12:06 14:50 Temperature Pulse Rate 72 72 Pulse Rate [ Bilateral Dorsalis Pedis] Pulse Rate [ 72 Pulse Oximetery ] Pulse Rate [ Right] Respiratory 20 Rate Blood Pressure Blood Pressure [Left Arm] Blood Pressure [Right Arm] O2 Sat by Pulse Oximetry 12/01/17 12/01/17 12/01/17 15:00 15:51 16:06 Temperature 98.6 F Pulse Rate 72 Pulse Rate [ Bilateral Dorsalis Pedis] Pulse Rate [ 86 Pulse Oximetery ] Pulse Rate [ Right] Respiratory 18 18 Rate Blood Pressure Blood Pressure 142/76 [Left Arm] Blood Pressure [Right Arm] O2 Sat by Pulse 89 L Oximetry 12/01/17 12/01/17 12/01/17 16:15 18:25 19:40 Temperature Pulse Rate 74 80 Pulse Rate [ Bilateral Dorsalis Pedis] Pulse Rate [ 80 Pulse Oximetery ] Pulse Rate [ Right] Respiratory Rate Blood Pressure Blood Pressure [Left Arm] Blood Pressure [Right Arm] O2 Sat by Pulse Oximetry 12/01/17 12/01/17 12/02/17 19:49 23:00 07:00 Temperature 98.0 F 97.8 F Pulse Rate 80 Pulse Rate [ Bilateral Dorsalis Pedis] Pulse Rate [ 77 73 Pulse Oximetery ] Pulse Rate [ Right] Respiratory 16 18 Rate Blood Pressure Blood Pressure 114/64 126/85 [Left Arm] Blood Pressure [Right Arm] O2 Sat by Pulse 91 L 94 L Oximetry 12/02/17 12/02/17 12/02/17 08:40 08:50 11:33 Temperature Pulse Rate 82 83 84 Pulse Rate [ Bilateral Dorsalis Pedis] Pulse Rate [ Pulse Oximetery ] Pulse Rate [ Right] Respiratory Rate Blood Pressure Blood Pressure [Left Arm] Blood Pressure [Right Arm] O2 Sat by Pulse Oximetry 12/02/17 12/02/17 12/02/17 11:43 14:54 15:00 Temperature 98.2 F Pulse Rate 85 82 Pulse Rate [ Bilateral Dorsalis Pedis] Pulse Rate [ 75 Pulse Oximetery ] Pulse Rate [ Right] Respiratory 16 18 Rate Blood Pressure Blood Pressure 120/80 [Left Arm] Blood Pressure [Right Arm] O2 Sat by Pulse 92 L 93 L Oximetry 12/02/17 12/02/17 12/02/17 15:05 18:49 19:00 Temperature Pulse Rate 84 85 82 Pulse Rate [ Bilateral Dorsalis Pedis] Pulse Rate [ Pulse Oximetery ] Pulse Rate [ Right] Respiratory 16 16 16 Rate Blood Pressure Blood Pressure [Left Arm] Blood Pressure [Right Arm] O2 Sat by Pulse Oximetry 12/02/17 12/03/17 12/03/17 23:00 07:00 08:00 Temperature 98.8 F 97.9 F Pulse Rate Pulse Rate [ Bilateral Dorsalis Pedis] Pulse Rate [ 84 61 61 Pulse Oximetery ] Pulse Rate [ 80 Right] Respiratory 16 16 16 Rate Blood Pressure Blood Pressure 117/63 117/70 [Left Arm] Blood Pressure [Right Arm] O2 Sat by Pulse 92 L 92 L Oximetry 12/03/17 12/03/17 12/03/17 08:12 08:22 11:40 Temperature Pulse Rate 76 77 78 Pulse Rate [ Bilateral Dorsalis Pedis] Pulse Rate [ Pulse Oximetery ] Pulse Rate [ Right] Respiratory Rate Blood Pressure Blood Pressure [Left Arm] Blood Pressure [Right Arm] O2 Sat by Pulse Oximetry 12/03/17 11:48 Temperature Pulse Rate 80 Pulse Rate [ Bilateral Dorsalis Pedis] Pulse Rate [ Pulse Oximetery ] Pulse Rate [ Right] Respiratory Rate Blood Pressure Blood Pressure [Left Arm] Blood Pressure [Right Arm] O2 Sat by Pulse Oximetry Total time taken greater than 35 minutes including 18 minutes for counseling and coordination of care. Patient Condition at Discharge: Serious Plan - Discharge Summary Discharge Rx Participant: No New Discharge Prescriptions: New Acetaminophen Tab [Tylenol] 650 mg PO Q6HR PRN tab PRN Reason: Mild Pain Or Fever > 100.5 predniSONE 10 mg PO DIRECTED #30 tab Levofloxacin [Levaquin] 500 mg PO Q24H 4 Days #4 tab Continue metFORMIN HCL ER [Glucophage Xr] 1,000 mg PO DAILY Fenofibrate [Lofibra] 160 mg PO DAILY Simvastatin [Zocor] 20 mg PO HS Montelukast Sodium [Singulair] 10 mg PO DAILY Glimepiride [Amaryl] 2 mg PO AC-BID Omeprazole [PriLOSEC] 20 mg PO DAILY Losartan Potassium 100 mg PO DAILY Pioglitazone [Actos] 15 mg PO DAILY Propranolol [Inderal] 20 mg PO DAILY Fluticasone Propionate [Flonase Allergy Relief] 1 spray EA NOSTRIL BID risperiDONE [RisperDAL] 0.5 mg PO HS [place]-3 Fatty Acids [[place]-3] 2,000 mg PO DAILY Divalproex Sodium [Depakote] 1,000 mg PO HS Multivitamins, Thera [Multivitamin (formulary)] 1 tab PO DAILY Levothyroxine Sodium [Synthroid] 75 mcg PO DAILY Ascorbic Acid [Vitamin C] 1,000 mg PO DAILY Changed Albuterol Nebulized [Ventolin Nebulized] 2.5 mg INHALATION QID #0 Discharge Medication List Ascorbic Acid [Vitamin C] 1,000 mg PO DAILY 11/27/17 [History] Divalproex Sodium [Depakote] 1,000 mg PO HS 11/27/17 [History] Fenofibrate [Lofibra] 160 mg PO DAILY 11/27/17 [History] Fluticasone Propionate [Flonase Allergy Relief] 1 spray EA NOSTRIL BID 11/27/17 [History] Glimepiride [Amaryl] 2 mg PO AC-BID 11/27/17 [History] Levothyroxine Sodium [Synthroid] 75 mcg PO DAILY 11/27/17 [History] Losartan Potassium 100 mg PO DAILY 11/27/17 [History] Montelukast Sodium [Singulair] 10 mg PO DAILY 11/27/17 [History] Multivitamins, Thera [Multivitamin (formulary)] 1 tab PO DAILY 11/27/17 [History ] [place]-3 Fatty Acids [[place]-3] 2,000 mg PO DAILY 11/27/17 [History] Omeprazole [PriLOSEC] 20 mg PO DAILY 11/27/17 [History] Pioglitazone [Actos] 15 mg PO DAILY 11/27/17 [History] Propranolol [Inderal] 20 mg PO DAILY 11/27/17 [History] Simvastatin [Zocor] 20 mg PO HS 11/27/17 [History] metFORMIN HCL ER [Glucophage Xr] 1,000 mg PO DAILY 11/27/17 [History] risperiDONE [RisperDAL] 0.5 mg PO HS 11/27/17 [History] Acetaminophen Tab [Tylenol] 650 mg PO Q6HR PRN tab 12/01/17 [Rx] Albuterol Nebulized [Ventolin Nebulized] 2.5 mg INHALATION QID #0 12/01/17 [Rx] predniSONE 10 mg PO DIRECTED #30 tab 12/01/17 [Rx] Levofloxacin [Levaquin] 500 mg PO Q24H 4 Days #4 tab 12/03/17 [Rx] Follow up Appointment(s)/Referral(s): Domingo Brooks III, MD [Primary Care Provider] - 3 Days (Family to call Dr. Brooks's office Monday to schedule follow up appointment. The office is closed at time of discharge. ) Nicki Patel MD [STAFF PHYSICIAN] - 2 Weeks (Family to call Dr. Patel's office Monday to schedule follow up appointment. The office is closed at time of discharge. ) Patient Instructions/Handouts: Prednisone (By mouth), Levofloxacin (By mouth), Acute Bronchitis (GEN) Discharge Disposition: HOME SELF-CARE
== END 2017-12-03 12:35 | disposition home or self-care (01) | DRG 189 ==
LOC: EC 09:35 → 6SEL 12:59 → 5ONC 15:28
PROVIDERS: ADMIT Internal Medicine; ATTEND Internal Medicine
DX: J96.01 Acute respiratory failure with hypoxia (principal); J18.9 Pneumonia, unspecified organism; M62.82 Rhabdomyolysis; J12.9 Viral pneumonia, unspecified; Q87.1 Congenital malformation syndromes predominantly associated with short stature; J45.901 Unspecified asthma with (acute) exacerbation; E11.65 Type 2 diabetes mellitus with hyperglycemia; Z68.43 Body mass index [BMI] 50.0-59.9, adult; I11.9 Hypertensive heart disease without heart failure; J40 Bronchitis, not specified as acute or chronic; E66.9 Obesity, unspecified; B00.1 Herpesviral vesicular dermatitis; T38.0X5A Adverse effect of glucocorticoids and synthetic analogues, initial encounter; Z66 Do not resuscitate; K21.9 Gastro-esophageal reflux disease without esophagitis; Q90.9 Down syndrome, unspecified; E78.5 Hyperlipidemia, unspecified; F79 Unspecified intellectual disabilities; E03.9 Hypothyroidism, unspecified; H91.90 Unspecified hearing loss, unspecified ear; F39 Unspecified mood [affective] disorder; R62.52 Short stature (child); F40.240 Claustrophobia; Z79.890 Hormone replacement therapy; Z79.84 Long term (current) use of oral hypoglycemic drugs; Z79.899 Other long term (current) drug therapy
CPT/HCPCS: 36415; 71045; 71046; 80048; 80053; 81003; 82550; 82553; 83735; 83880; 84484; 85025; 85379; 85610; 85730; 87040; 87502; 93005; 93308; 94640; 94760; 96361; 96365; 96375; 99285

== ENCOUNTER → 2018-02-19 | Outpatient (CLI) | payer MEDICARE, OTHER ==
[2018-02-19 08:48] LABS: Basophils % (A) 0 %; Eosinophils # (A) 0.1 k/uL (0-0.7); Eosinophils % (A) 2 %; HCT 41.6 % (39.0-53.0); HGB 13.7 gm/dL (13.0-17.5); Lymphocytes # (A) 1.6 k/uL (1.0-4.8); Lymphocytes % (A) 30 %; MCH 30.2 pg (25.0-35.0); MCHC 32.9 g/dL (31.0-37.0); MCV 91.8 fL (80.0-100.0); Mean Platelet Volume 6.9; Monocytes # (A) 0.4 k/uL (0-1.0); Monocytes % (A) 7 %; Neutrophils # (A) 3.4 k/uL (1.3-7.7); Neutrophils % (A) 61 %; Platelet Count 199 k/uL (150-450); RBC 4.53 m/uL (4.30-5.90); RDW 14.3 % (11.5-15.5); WBC 5.6 k/uL (3.8-10.6)
[2018-02-19 09:00] LABS: ALT 53 U/L (21-72); AST 33 U/L (17-59); Albumin 3.9 g/dL (3.5-5.0); Alkaline Phosphatase 44 U/L (38-126); Anion Gap 11 mmol/L; Bilirubin, Delta 0.3 mg/dL (0.0-0.2); Blood Urea Nitrogen 17 mg/dL (9-20); Calcium 9.2 mg/dL (8.4-10.2); Carbon Dioxide 27 mmol/L (22-30); Chloride 100 mmol/L (98-107); Cholesterol 152 mg/dL (<200); Glucose 212 mg/dL (74-99); HDL Cholesterol 30 mg/dL (40-60); LDL Cholesterol,Calculated 55 mg/dL (0-99); Potassium 4.8 mmol/L (3.5-5.1); Sodium 138 mmol/L (137-145); Total Bilirubin 0.3 mg/dL (0.2-1.3); Total Protein 6.3 g/dL (6.3-8.2); Triglycerides 335 mg/dL (<150)
[2018-02-19 09:05] LABS: Valproic Acid (Depakene) 64.7 ug/mL
[2018-02-19 09:16] LABS: T4, Free (Free Thyroxine) 1.34 ng/dL (0.78-2.19)
[2018-02-19 17:07] LABS: Hemoglobin A1C 8.4 % (4.0-6.0)
== END | disposition home or self-care (01) ==
LOC: LABWHC1 08:07
PROVIDERS: ATTEND Nurse Practitioner Family
DX: F31.9 Bipolar disorder, unspecified (principal); F43.23 Adjustment disorder with mixed anxiety and depressed mood; F71 Moderate intellectual disabilities; T50.905D Adverse effect of unspecified drugs, medicaments and biological substances, subsequent encounter
CPT/HCPCS: 36415; 80053; 80061; 80164; 82248; 83036; 84439; 84443; 85025

== ENCOUNTER 2020-07-08 12:33 | Inpatient (IN) | payer MEDICARE, OTHER ==
--- NOTE | 2020-07-08 14:16 | XR ---
EXAMINATION TYPE: XR chest 1V portable DATE OF EXAM: 07/08/2020 COMPARISON: Prior chest x-ray 11/30/2017, 03/09/2018 HISTORY: Suspected Covid 19 pneumonia TECHNIQUE: Single frontal view of the chest is obtained. FINDINGS: Bilateral patchy density is present within the lungs. There is no pleural effusion or pneum othorax seen. The cardiac silhouette size is stable and enlarged. The osseous structures are intac t. IMPRESSION: Correlate for pneumonia. Stable cardiomegaly.
--- NOTE | 2020-07-08 14:19 | XR ---
KUB HISTORY: Flank pain Frontal KUB submitted on 2 images There is no evident pathologic calcification, no bowel obstruction or pneumoperitoneum. Bone minerali zation is normal. Liver may be enlarged. Patchy density noted at the lung bases. IMPRESSION: Exam may be limited by patient body habitus. Possible hepatomegaly. Correlate for pneumon ia.
[2020-07-08] MEDS ORDERED: ALBUTEROL NEBULIZED 2.5 MG/3 ML INHALATION STA (14:37)
[2020-07-08] MEDS ORDERED: dexAMETHasone 2 MG TAB PO STA (14:37)
[2020-07-08 15:21] LABS: Basophils # (A) 0.2 k/uL (0-0.2); Basophils % (A) 3 %; Eosinophils % (A) 1 %; HCT 48.1 % (39.0-53.0); Lymphocytes # (A) 0.8 k/uL (1.0-4.8); Lymphocytes % (A) 16 %; MCH 29.5 pg (25.0-35.0); MCHC 31.1 g/dL (31.0-37.0); MCV 94.9 fL (80.0-100.0); Mean Platelet Volume 7.5; Monocytes # (A) 0.6 k/uL (0-1.0); Monocytes % (A) 10 %; Neutrophils # (A) 3.7 k/uL (1.3-7.7); Neutrophils % (A) 69 %; Platelet Count 179 k/uL (150-450); RBC 5.07 m/uL (4.30-5.90); WBC 5.4 k/uL (3.8-10.6)
[2020-07-08 15:32] LABS: ALT 39 U/L (4-49); AST 57 U/L (17-59); African American GFR (CKD) >90 (>60 ml/min/1.73 sqM); Albumin 4.2 g/dL (3.5-5.0); Alkaline Phosphatase 31 U/L (38-126); Anion Gap 10 mmol/L; Blood Urea Nitrogen 17 mg/dL (9-20); Calcium 9.1 mg/dL (8.4-10.2); Carbon Dioxide 23 mmol/L (22-30); Chloride 104 mmol/L (98-107); Glucose 68 mg/dL (74-99); LDH 1068 U/L (313-618); Magnesium 1.8 mg/dL (1.6-2.3); Non-African American GFR(CKD) >90 (>60 ml/min/1.73 sqM); Sodium 137 mmol/L (137-145); Total Bilirubin 0.6 mg/dL (0.2-1.3); Total Protein 7.6 g/dL (6.3-8.2)
[2020-07-08 15:33] LABS: INR 0.9 (<1.2); Potassium 5.2 mmol/L (3.5-5.1)
[2020-07-08 15:34] LABS: Partial Thromboplastin Time 27.7 sec (22.0-30.0); Prothrombin Time 9.8 sec (9.0-12.0)
[2020-07-08 15:52] LABS: D-Dimer 0.7 mg/L FEU (<0.60)
[2020-07-08 16:03] LABS: Appearance,Urine Clear (Clear); Bilirubin,Urine Negative (Negative); Blood,Urine Negative (Negative); Color,Urine Yellow; Glucose,Urine (UA) 4+ (Negative); Ketones,Urine Negative (Negative); Leukocyte Esterase,Urine Negative (Negative); Nitrite,Urine Negative (Negative); Protein,Urine Negative (Negative); Specific Gravity,Urine 1.034 (1.001-1.035); Urobilinogen,Urine <2.0 mg/dL (<2.0)
[2020-07-08] MEDS ORDERED: AZITHROMYCIN 500 MG in SODIUM CHLORIDE 0.9% 250 ML IVPB STA (16:56)
[2020-07-08 17:55] LABS: Glucose,Whole Blood 81 mg/dL (75-99)
--- NOTE | 2020-07-08 17:55 | CT ---
CT CHEST FOR PULMONARY EMBOLISM. EXAMINATION TYPE: CT chest angio for PE DATE OF EXAM: 07/08/2020 INDICATION: shortness of breath. CT DLP: 587.9 mGycm, Automated exposure control for dose reduction was used. CONTRAST: Patient injected with 100 mL of Isovue 370. COMPARISON: None TECHNIQUE: CT of the chest is performed on a spiral scan at 2 mm thick sections. Study is performed with intravenous contrast timed for evaluation for pulmonary embolism. This will limit additional po rtions of the evaluation. 3-D MIP images reconstructed by the technologist are reviewed on the compu ter in the coronal and sagittal planes. FINDINGS: No persistent filling defects are evident to suggest an acute pulmonary embolism. No mediastinal or hilar adenopathy enlarged by CT criteria is evident. There are multiple scattered l ymph nodes in the axilla with larger lymph nodes on the left. The ascending aorta diameter at the lev el of the main pulmonary artery is 2.7 cm. The main pulmonary artery diameter at the bifurcation is 2.3 cm. There is some increased infiltrate within the left lower lobe. Scattered patchy infiltrates are prese nt bilaterally. Correlate for atypical pneumonia such as coronavirus. Small nodules not excluded in t he posterior lateral left lung measuring 0.7 cm. Series [address] section through the upper abdomen. There is moderate fatty infiltration to the liver. Uppe r abdomen is otherwise unremarkable. IMPRESSIONS: 1. No acute pulmonary embolism. 2. Clinical consideration for atypical pneumonia such as coronavirus is recommended patchy infiltrate s and densities are present bilaterally. 3. Small nodules not excluded in the posterior lateral left lung base which will require further foll ow-up
--- NOTE | 2020-07-08 17:59 | CT ---
EXAMINATION TYPE: CT abdomen pelvis w con DATE OF EXAM: 07/08/2020 COMPARISON: CT chest same date, CT abdomen pelvis 06/01/2015 INDICATION: shortness of breath. DLP: 1661 mGycm, Automated exposure control for dose reduction was used. CONTRAST: 100 mL of Isovue 370. Study performed without Oral Contrast TECHNIQUE: Axial images were obtained from above the diaphragm to the pubic rami in the axial plane a t 5 mm thick sections. Reconstructed images are reviewed on the computer in the coronal plane. FINDINGS: Limited CT sections are obtained the lung bases. Patchy infiltrates within the bilateral lung bases. There is a pleural-based density on the right lateral measuring 1 cm in depth and 3.[address] ABDOMEN: Liver: There is moderate fatty infiltration of the liver. Spleen: Normal Pancreas: Normal Adrenal glands: The adrenal glands are normal. Gallbladder: Normal Kidneys: No masses are evident. No hydronephrosis is present. No cysts are present. Delayed images were obtained through the kidneys, which remain unremarkable. Aorta: Normal Inferior vena cava: Normal. CT PELVIS: Small amount of herniation over the anterior pubic symphysis with urinary bladder is evide nt. Loops of bowel within the abdomen and pelvis are normal. The studies performed without oral contr ast limiting bowel evaluation. Appendix: Normal as visualized. Urinary bladder: Normal. Genitourinary structures: Prostate is normal Osseous structures: No suspicious lytic or sclerotic lesions. IMPRESSIONS: 1. Moderate fatty infiltration liver. 2. Clinical consideration for atypical pneumonia is recommended at the lung bases. 3. Abdominal hernia anterior to the pubic symphysis which includes the urinary bladder
[2020-07-08] MEDS ORDERED: ACETAMINOPHEN TAB 325 MG TAB PO PRN (18:22)
[2020-07-08] MEDS ORDERED: NALOXONE 0.4 MG/ML 1 ML VIAL IV PRN (18:22)
[2020-07-08] MEDS ORDERED: IBUPROFEN 400 MG TAB PO PRN (18:22)
[2020-07-08] MEDS: SODIUM CHLORIDE 0.9% 1,000 ML IV SCH (18:31)
[2020-07-08] MEDS ORDERED: SODIUM CHLORIDE 0.9% 500 ML 500 ML IV ONE (18:33)
--- NOTE | 2020-07-08 18:33 | ED ---
General Adult HPI - General Chief complaint: Shortness of Breath Stated complaint: +covid, low o2 level Time Seen by Provider: 07/08/20 13:04 Source: patient, family, RN notes reviewed, old records reviewed, Caregiver Mode of arrival: ambulatory Limitations: physical limitation - History of Present Illness Initial comments: 34-year-old male patient is known: Positive breath ED for evaluation. Patient does have guarding with them. Patient does have some developmental delay. Patient pulse ox patient has reportedly been dropping down to the 80s. Patient history taking is limited but is reporting that he is having some discomfort in his left upper quadrant region. Patient does have a cough. Only mild fevers at home. Denies any other acute complaints. Systemic: Pt denies fatigue, fever/chills, rash. Pt denies weakness, night sweats, weight loss. Neuro: Pt denies headache, visual disturbances, syncope or pre-syncope. HEENT: Pt denies ocular discharge or irritation, otalgia, rhinorrhea, pharyngitis or notable lymphadenopathy. Cardiopulmonary: Pt denies chest pain, heart palpitations, dyspnea on exertion. Abdominal/GI: Pt denies abdominal pain, n/v/d. : Pt denies dysuria, burning w/ urination, frequency/urgency. Denies new onset urinary or bowel incontinence. MSK: Pt denies myalgia, loss of strength or function in extremities. Neuro: Pt denies new onset weakness, paresthesias. - Related Data Home Medications Medication Instructions Recorded Confirmed Fenofibrate [Lofibra] 160 mg PO DAILY 11/27/17 07/08/20 Fluticasone Propionate [Flonase 1 spray EA NOSTRIL BID PRN 11/27/17 07/08/20 Allergy Relief] Glimepiride [Amaryl] 2 mg PO AC-BID 11/27/17 07/08/20 Levothyroxine Sodium [Synthroid] 75 mcg PO AC-BRKFST 11/27/17 07/08/20 Montelukast Sodium [Singulair] 10 mg PO DAILY 11/27/17 07/08/20 Multivitamins, Thera [Multivitamin 2 tab PO QAM 11/27/17 07/08/20 (formulary)] Omeprazole [PriLOSEC] 20 mg PO QAM 11/27/17 07/08/20 Pioglitazone [Actos] 15 mg PO QAM 11/27/17 07/08/20 Propranolol [Inderal] 40 mg PO QAM 11/27/17 07/08/20 Simvastatin [Zocor] 20 mg PO HS 11/27/17 07/08/20 metFORMIN HCL ER [Glucophage Xr] 1,000 mg PO QAM 11/27/17 07/08/20 Albuterol Nebulized [Ventolin 2.5 mg INHALATION RT-QID PRN 07/08/20 07/08/20 Nebulized] Empagliflozin [Jardiance] 25 mg PO QAM 07/08/20 07/08/20 Melatonin (Unknown Strength) 1 tab PO HS 07/08/20 07/08/20 Mv-Min/Vit C/Glut/Lysine/Hc124 3 tab PO QAM 07/08/20 07/08/20 [Airborne Tablet Chewable] OXcarbazepine [Trileptal] 150 mg PO BID 07/08/20 07/08/20 OXcarbazepine [Trileptal] 300 mg PO BID 07/08/20 07/08/20 Olmesartan Medoxomil [Benicar] 40 mg PO DAILY 07/08/20 07/08/20 Propranolol [Inderal] 20 mg PO DAILY 07/08/20 07/08/20 Sertraline HCl [Zoloft] 100 mg PO DAILY 07/08/20 07/08/20 Sertraline [Zoloft] 25 mg PO DAILY 07/08/20 07/08/20 Allergies Allergy/AdvReac Type Severity Reaction Status Date / Time No Known Allergies Allergy Verified 07/08/20 14:57 Review of Systems ROS Statement: Those systems with pertinent positive or pertinent negative responses have been documented in the HPI. ROS Other: All systems not noted in ROS Statement are negative. Past Medical History Past Medical History: Diabetes Mellitus, GERD/Reflux, Hyperlipidemia, Thyroid Disorder Additional Past Medical History / Comment(s): Saw silver syndrome , obesity, mental retardation, diabetes mellitus, hyperlipidemia, acid reflux, hypothyroidism, obesity History of Any Multi-Drug Resistant Organisms: None Reported Past Surgical History: Ear Surgery Past Anesthesia/Blood Transfusion Reactions: Previous Problems w/ Anesthesia Additional Past Anesthesia/Blood Transfusion Reaction / Comment(s): has clausterphobia. Past Psychological History: No Psychological Hx Reported Smoking Status: Never smoker Past Alcohol Use History: None Reported Past Drug Use History: None Reported - Past Family History Father History Unknown: Yes Mother History Unknown: Yes General Exam - General Exam Comments Initial Comments: Constitutional: NAD, Pt has pleasant affect. HEENT: NC/AT, trachea midline, neck supple, no lymphadenopathy. External ears appear normal, without discharge. Mucous membranes moist. Eyes PERRLA, EOM intact. There is no scleral icterus. No pallor noted. Cardiopulmonary: RRR, no murmurs, rubs or gallops, no JVD noted. Rales noted in lung zarate. No peripheral edema. Abdominal exam: Abdomen soft and non-distended. Abdomen non-tender to palpation in all 4 quadrants. Neuro: CN II-XII grossly intact. No nuchal rigidity. MSK: Full active ROM in upper and lower extremities. Limitations: physical limitation Course Vital Signs 07/08/20 07/08/20 07/08/20 12:39 15:28 15:36 Temperature 98.8 F Pulse Rate 89 80 84 Respiratory 22 Rate Blood Pressure 112/73 O2 Sat by Pulse 92 L Oximetry Medical Decision Making - Medical Decision Making 34-year-old male patient ED covid positive decreased pulse ox patient home. Pt reports abdominal pain. Laboratory investigations revealed elevated lactic dehydrogenase C reactive protein, troponin negative d-dimer mildly elevated 4+ glucose in urine. As d-dimer was elevated a CT was performed. This doesn't display atypical pneumonia corresponding with Covid pneumonia. Abdomen pelvis was also added as patient is endorsing abdominal pain and is not able to live will historian. This displayed a hernia but no other acute process. Patient will be admitted for further evaluation. Case discussed with Dr. Escobar. - Lab Data Result diagrams: 07/08/20 15:08 07/08/20 15:08 Lab Results 07/08/20 07/08/20 07/08/20 Range/Units 15:08 15:08 15:08 WBC 5.4 (3.8-10.6) k/uL RBC 5.07 (4.30-5.90) m/uL Hgb 15.0 (13.0-17.5) gm/dL Hct 48.1 (39.0-53.0) % MCV 94.9 (80.0-100.0) fL MCH 29.5 (25.0-35.0) pg MCHC 31.1 (31.0-37.0) g/dL RDW 15.0 (11.5-15.5) % Plt Count 179 (150-450) k/uL Neutrophils % 69 % Lymphocytes % 16 % Monocytes % 10 % Eosinophils % 1 % Basophils % 3 % Neutrophils # 3.7 (1.3-7.7) k/uL Lymphocytes # 0.8 L (1.0-4.8) k/uL Monocytes # 0.6 (0-1.0) k/uL Eosinophils # 0.0 (0-0.7) k/uL Basophils # 0.2 (0-0.2) k/uL PT 9.8 (9.0-12.0) sec INR 0.9 (<1.2) APTT 27.7 (22.0-30.0) sec D-Dimer 0.70 H (<0.60) mg/L FEU Sodium 137 (137-145) mmol/L Potassium 5.2 H (3.5-5.1) mmol/L Chloride 104 (98-107) mmol/L Carbon Dioxide 23 (22-30) mmol/L Anion Gap 10 mmol/L BUN 17 (9-20) mg/dL Creatinine 0.84 (0.66-1.25) mg/dL Est GFR (CKD-EPI)AfAm >90 (>60 ml/min/1.73 sqM) Est GFR (CKD-EPI)NonAf >90 (>60 ml/min/1.73 sqM) Glucose 68 L (74-99) mg/dL POC Glucose (mg/dL) (75-99) mg/dL POC Glu Golf Technician ID Plasma Lactic Acid Mal (0.7-2.0) mmol/L Calcium 9.1 (8.4-10.2) mg/dL Magnesium 1.8 (1.6-2.3) mg/dL Total Bilirubin 0.6 (0.2-1.3) mg/dL AST 57 (17-59) U/L ALT 39 (4-49) U/L Alkaline Phosphatase 31 L (38-126) U/L Lactate Dehydrogenase 1068 H (313-618) U/L Troponin I (0.000-0.034) ng/mL C-Reactive Protein 47.0 H (<10.0) mg/L Total Protein 7.6 (6.3-8.2) g/dL Albumin 4.2 (3.5-5.0) g/dL Urine Color Urine Appearance (Clear) Urine pH (5.0-8.0) Ur Specific [place] (1.001-1.035) Urine Protein (Negative) Urine Glucose (UA) (Negative) Urine Ketones (Negative) Urine Blood (Negative) Urine Nitrite (Negative) Urine Bilirubin (Negative) Urine Urobilinogen (<2.0) mg/dL Ur Leukocyte Esterase (Negative) 07/08/20 07/08/20 07/08/20 Range/Units 15:08 15:08 15:08 WBC (3.8-10.6) k/uL RBC (4.30-5.90) m/uL Hgb (13.0-17.5) gm/dL Hct (39.0-53.0) % MCV (80.0-100.0) fL MCH (25.0-35.0) pg MCHC (31.0-37.0) g/dL RDW (11.5-15.5) % Plt Count (150-450) k/uL Neutrophils % % Lymphocytes % % Monocytes % % Eosinophils % % Basophils % % Neutrophils # (1.3-7.7) k/uL Lymphocytes # (1.0-4.8) k/uL Monocytes # (0-1.0) k/uL Eosinophils # (0-0.7) k/uL Basophils # (0-0.2) k/uL PT (9.0-12.0) sec INR (<1.2) APTT (22.0-30.0) sec D-Dimer (<0.60) mg/L FEU Sodium (137-145) mmol/L Potassium (3.5-5.1) mmol/L Chloride (98-107) mmol/L Carbon Dioxide (22-30) mmol/L Anion Gap mmol/L BUN (9-20) mg/dL Creatinine (0.66-1.25) mg/dL Est GFR (CKD-EPI)AfAm (>60 ml/min/1.73 sqM) Est GFR (CKD-EPI)NonAf (>60 ml/min/1.73 sqM) Glucose (74-99) mg/dL POC Glucose (mg/dL) (75-99) mg/dL POC Glu Golf Technician ID Plasma Lactic Acid Mal 1.1 (0.7-2.0) mmol/L Calcium (8.4-10.2) mg/dL Magnesium (1.6-2.3) mg/dL Total Bilirubin (0.2-1.3) mg/dL AST (17-59) U/L ALT (4-49) U/L Alkaline Phosphatase (38-126) U/L Lactate Dehydrogenase (313-618) U/L Troponin I <0.012 (0.000-0.034) ng/mL C-Reactive Protein (<10.0) mg/L Total Protein (6.3-8.2) g/dL Albumin (3.5-5.0) g/dL Urine Color Yellow Urine Appearance Clear (Clear) Urine pH 5.0 (5.0-8.0) Ur Specific [place] 1.034 (1.001-1.035) Urine Protein Negative (Negative) Urine Glucose (UA) 4+ H (Negative) Urine Ketones Negative (Negative) Urine Blood Negative (Negative) Urine Nitrite Negative (Negative) Urine Bilirubin Negative (Negative) Urine Urobilinogen <2.0 (<2.0) mg/dL Ur Leukocyte Esterase Negative (Negative) 07/08/20 Range/Units 17:54 WBC (3.8-10.6) k/uL RBC (4.30-5.90) m/uL Hgb (13.0-17.5) gm/dL Hct (39.0-53.0) % MCV (80.0-100.0) fL MCH (25.0-35.0) pg MCHC (31.0-37.0) g/dL RDW (11.5-15.5) % Plt Count (150-450) k/uL Neutrophils % % Lymphocytes % % Monocytes % % Eosinophils % % Basophils % % Neutrophils # (1.3-7.7) k/uL Lymphocytes # (1.0-4.8) k/uL Monocytes # (0-1.0) k/uL Eosinophils # (0-0.7) k/uL Basophils # (0-0.2) k/uL PT (9.0-12.0) sec INR (<1.2) APTT (22.0-30.0) sec D-Dimer (<0.60) mg/L FEU Sodium (137-145) mmol/L Potassium (3.5-5.1) mmol/L Chloride (98-107) mmol/L Carbon Dioxide (22-30) mmol/L Anion Gap mmol/L BUN (9-20) mg/dL Creatinine (0.66-1.25) mg/dL Est GFR (CKD-EPI)AfAm (>60 ml/min/1.73 sqM) Est GFR (CKD-EPI)NonAf (>60 ml/min/1.73 sqM) Glucose (74-99) mg/dL POC Glucose (mg/dL) 81 (75-99) mg/dL POC Glu Golf Technician ID Yuly Sher Plasma Lactic Acid Mal (0.7-2.0) mmol/L Calcium (8.4-10.2) mg/dL Magnesium (1.6-2.3) mg/dL Total Bilirubin (0.2-1.3) mg/dL AST (17-59) U/L ALT (4-49) U/L Alkaline Phosphatase (38-126) U/L Lactate Dehydrogenase (313-618) U/L Troponin I (0.000-0.034) ng/mL C-Reactive Protein (<10.0) mg/L Total Protein (6.3-8.2) g/dL Albumin (3.5-5.0) g/dL Urine Color Urine Appearance (Clear) Urine pH (5.0-8.0) Ur Specific [place] (1.001-1.035) Urine Protein (Negative) Urine Glucose (UA) (Negative) Urine Ketones (Negative) Urine Blood (Negative) Urine Nitrite (Negative) Urine Bilirubin (Negative) Urine Urobilinogen (<2.0) mg/dL Ur Leukocyte Esterase (Negative) - EKG Data -: EKG Interpreted by Me (and Dr. Escobar ) EKG Comments: Ventricular rate 80, IN interval 166, QRS 88, QT/QTC 368/424. Normal sinus rhythm, normal ekg. No concern for acute ischemia. Disposition Clinical Impression: Pneumonia due to COVID-19 virus Disposition: ADMITTED IP TO THIS HOSP Condition: Serious Is patient prescribed a controlled substance at d/c from ED?: No Referrals: Domingo Brooks III, MD [Primary Care Provider] - 1-2 days
[2020-07-08] MEDS ORDERED: ALBUTEROL NEBULIZED 2.5 MG/3 ML INHALATION PRN (21:40)
[2020-07-08] MEDS ORDERED: FLUTICASONE 50MCG/SPRAY NASAL 16GM EA NOSTRIL PRN (21:40)
[2020-07-08] MEDS: GLIMEPIRIDE 2 MG TAB PO SCH (23:34)
[2020-07-08] MEDS: ATORVASTATIN 10 MG TAB PO SCH (23:34)
[2020-07-08] MEDS: OXcarbazepine 300 MG TAB PO SCH (23:34)
[2020-07-08] MEDS: FENOFIBRATE 160 MG TAB PO SCH (23:35)
[2020-07-08] MEDS: OXcarbazepine 150 MG TAB PO SCH (23:35)
[2020-07-08] MEDS: PROPRANOLOL 20 MG TAB PO SCH (23:35)
[2020-07-08] MEDS: LOSARTAN 50 MG TAB PO SCH (23:35)
[2020-07-08] MEDS: MONTELUKAST 10 MG TAB PO SCH (23:35)
[2020-07-08] MEDS: SERTRALINE 100 MG TAB PO SCH (23:36)
[2020-07-08] MEDS: SERTRALINE 25 MG TAB PO SCH (23:36)
[2020-07-09 00:23] LABS: Glucose,Whole Blood 117 mg/dL (75-99)
[2020-07-09 03:55] LABS: Ferritin 129.3 ng/mL (22.0-322.0)
[2020-07-09 07:31] LABS: Glucose,Whole Blood 77 mg/dL (75-99)
[2020-07-09] MEDS: metFORMIN 500 MG TAB PO SCH ×2 (08:30→21:25)
[2020-07-09] MEDS: MULTIVITAMINS, THERA 1 EACH TAB PO SCH (08:30)
[2020-07-09] MEDS: GLIMEPIRIDE 2 MG TAB PO SCH ×2 (08:33→16:33)
[2020-07-09] MEDS: PANTOPRAZOLE 40 MG TABLET PO SCH (08:33)
[2020-07-09] MEDS: LEVOTHYROXINE 75 MCG TAB PO SCH (08:33)
[2020-07-09] MEDS: PROPRANOLOL 20 MG TAB PO SCH ×2 (08:34→21:25)
[2020-07-09] MEDS: PIOGLITAZONE 15 MG TAB PO SCH (08:34)
[2020-07-09] MEDS: OXcarbazepine 150 MG TAB PO SCH ×2 (08:34→21:25)
[2020-07-09] MEDS: OXcarbazepine 300 MG TAB PO SCH ×2 (08:34→21:25)
[2020-07-09 11:49] LABS: Glucose,Whole Blood 71 mg/dL (75-99)
[2020-07-09] MEDS: ENOXAPARIN 40 MG/0.4 ML SYRINGE SQ SCH (12:23)
[2020-07-09] MEDS: dexAMETHasone 2 MG TAB PO SCH (12:23)
[2020-07-09] MEDS: SODIUM CHLORIDE 0.9% 1,000 ML IV SCH ×2 (12:24→21:24)
--- NOTE | 2020-07-09 14:14 | P.CNPUL ---
History of Present Illness Consult date: 07/09/20 Requesting physician: Deepa Grady Reason for consult: dyspnea Chief complaint: Shortness of breath, hypoxemia History of present illness: This is a very pleasant 34-year-old gentleman who is mentally challenged and has a history of Saw Silver syndrome. He also has a history of diabetes mellitus, hyperlipidemia, gastroesophageal reflux disease, hypothyroidism, obesity. He is a lifelong nonsmoker. He was brought into the emergency room yesterday with complaints of shortness of breath cough, congestion and was found to have low oxygen in the 80s. Chest x-ray does reveal reveal areas of bilateral patchy densities. CT angiogram ruled out pulmonary embolism. There is consideration for atypical pneumonia such as coronavirus due to the patchy infiltrates and densities seen bilaterally. Staff reports the patient tested positive for CoVID 19 however the documentation is not available currently. He remains in isolation precautions. He is currently on 4 L nasal cannula to ma intain O2 saturations in the low 90s. He is afebrile. Hemodynamically stable. He is seen today in consultation on the medical floor. He is sitting up in bed eating lunch. Swallowing well. White count 5.4. Hemoglobin 15.0. Lymphocytes 0.8. Platelet count 179. D-dimer 0.70. Sodium 137. Potassium 5.2. Creatinine 0.84. LDH 1068. C-reactive protein 47. Pro-calcitonin 0.10. He is continued on dexamethasone, Lovenox. Review of Systems ROS unobtainable: due to mental status Past Medical History Past Medical History: Diabetes Mellitus, GERD/Reflux, Hyperlipidemia, Thyroid Disorder Additional Past Medical History / Comment(s): Saw silver syndrome , obesity, mental retardation, diabetes mellitus, hyperlipidemia, acid reflux, hypothyroidism, obesity History of Any Multi-Drug Resistant Organisms: None Reported Past Surgical History: Ear Surgery Past Anesthesia/Blood Transfusion Reactions: Previous Problems w/ Anesthesia Additional Past Anesthesia/Blood Transfusion Reaction / Comment(s): Has clausterphobia. Past Psychological History: No Psychological Hx Reported Additional Psychological History / Comment(s): Has mood swings Smoking Status: Never smoker Past Alcohol Use History: None Reported Past Drug Use History: None Reported - Past Family History Father History Unknown: Yes Family Medical History: No Reported History Mother History Unknown: Yes Family Medical History: No Reported History Medications and Allergies Home Medications Medication Instructions Recorded Confirmed Type Fenofibrate [Lofibra] 160 mg PO DAILY 11/27/17 07/08/20 History Fluticasone Propionate [Flonase 1 spray EA NOSTRIL BID PRN 11/27/17 07/08/20 History Allergy Relief] Glimepiride [Amaryl] 2 mg PO AC-BID 11/27/17 07/08/20 History Levothyroxine Sodium [Synthroid] 75 mcg PO AC-BRKFST 11/27/17 07/08/20 History Montelukast Sodium [Singulair] 10 mg PO DAILY 11/27/17 07/08/20 History Multivitamins, Thera [Multivitamin 2 tab PO QAM 11/27/17 07/08/20 History (formulary)] Omeprazole [PriLOSEC] 20 mg PO QAM 11/27/17 07/08/20 History Pioglitazone [Actos] 15 mg PO QAM 11/27/17 07/08/20 History Propranolol [Inderal] 40 mg PO QAM 11/27/17 07/08/20 History Simvastatin [Zocor] 20 mg PO HS 11/27/17 07/08/20 History metFORMIN HCL ER [Glucophage Xr] 1,000 mg PO QAM 11/27/17 07/08/20 History Albuterol Nebulized [Ventolin 2.5 mg INHALATION RT-QID PRN 07/08/20 07/08/20 History Nebulized] Empagliflozin [Jardiance] 25 mg PO QAM 07/08/20 07/08/20 History Melatonin (Unknown Strength) 1 tab PO HS 07/08/20 07/08/20 History Mv-Min/Vit C/Glut/Lysine/Hc124 3 tab PO QAM 07/08/20 07/08/20 History [Airborne Tablet Chewable] OXcarbazepine [Trileptal] 150 mg PO BID 07/08/20 07/08/20 History OXcarbazepine [Trileptal] 300 mg PO BID 07/08/20 07/08/20 History Olmesartan Medoxomil [Benicar] 40 mg PO DAILY 07/08/20 07/08/20 History Propranolol [Inderal] 20 mg PO DAILY 07/08/20 07/08/20 History Sertraline HCl [Zoloft] 100 mg PO DAILY 07/08/20 07/08/20 History Sertraline [Zoloft] 25 mg PO DAILY 07/08/20 07/08/20 History Allergies Allergy/AdvReac Type Severity Reaction Status Date / Time No Known Allergies Allergy Verified 07/08/20 14:57 Physical Exam Vitals: Vital Signs Temp Pulse Pulse Resp BP BP Pulse Ox 07/09/20 12:37 98.1 F 70 16 118/70 93 L 07/09/20 08:00 65 20 07/09/20 04:28 97.5 F L 65 20 131/73 93 L 07/09/20 00:10 98.4 F 83 16 119/56 96 07/08/20 18:35 96.3 F L 82 18 140/95 93 L 07/08/20 15:36 84 07/08/20 15:28 80 Intake and Output 07/08/20 07/09/20 07/09/20 22:59 06:59 14:59 Intake Total 1490 600 Balance 1490 600 Intake: Intake, IV Titration 900 600 Amount Sodium Chloride 0.9% 1, 900 600 000 ml @ 75 mls/hr IV . [id number] [facility] Rx#:[id number] Oral 590 Other: Voiding Method Toilet Toilet # Voids 3 3 # Bowel Movements 1 Weight 92.986 kg GENERAL EXAM: Alert, pleasant mentally challenged 34-year-old male patient, on 4 L nasal cannula, comfortable in no apparent distress. HEAD: Normocephalic. EYES: Normal reaction of pupils, equal size. NOSE: Clear with pink turbinates. THROAT: No erythema or exudates. NECK: No masses, no JVD. CHEST: No chest wall deformity. LUNGS: Equal air entry with bilateral scattered rhonchi. CVS: S1 and S2 normal with no audible murmur, regular rhythm. ABDOMEN: No hepatosplenomegaly, normal bowel sounds, no guarding or rigidity. SPINE: No scoliosis or deformity SKIN: No rashes CENTRAL NERVOUS SYSTEM: No focal deficits, tone is normal in all 4 extremities. EXTREMITIES: There is no peripheral edema. No clubbing, no cyanosis. Peripheral pulses are intact. Results - Laboratory Findings CBC and BMP: 07/08/20 15:08 07/08/20 15:08 PT/INR, D-dimer PT 9.8 sec (9.0-12.0) 07/08/20 15:08 INR 0.9 (<1.2) 07/08/20 15:08 D-Dimer 0.70 mg/L FEU (<0.60) H 07/08/20 15:08 Abnormal lab findings: Abnormal Labs 07/08/20 07/08/20 07/08/20 15:08 15:08 15:08 Lymphocytes # 0.8 L D-Dimer 0.70 H Potassium 5.2 H Glucose 68 L POC Glucose (mg/dL) Alkaline Phosphatase 31 L Lactate Dehydrogenase 1068 H C-Reactive Protein 47.0 H Procalcitonin Urine Glucose (UA) 07/08/20 07/08/20 07/09/20 15:08 15:08 00:22 Lymphocytes # D-Dimer Potassium Glucose POC Glucose (mg/dL) 117 H Alkaline Phosphatase Lactate Dehydrogenase C-Reactive Protein Procalcitonin 0.10 H Urine Glucose (UA) 4+ H 07/09/20 11:47 Lymphocytes # D-Dimer Potassium Glucose POC Glucose (mg/dL) 71 L Alkaline Phosphatase Lactate Dehydrogenase C-Reactive Protein Procalcitonin Urine Glucose (UA) - Diagnostic Findings Chest x-ray: image reviewed CT scan - chest: image reviewed Assessment and Plan Assessment: 1 Acute hypoxic respiratory failure secondary to suspected CoVID 19 pneumonitis versus aspiration 2 Saw silver syndrome, Down syndrome and secondarily mentally challenged 3 Obesity 4 Hypothyroidism 5 Hypertension 6 Hyperlipidemia 7 Diabetes mellitus Plan: The patient was seen and evaluated by Dr. Carson Chest x-ray, CAT scan and labs reviewed Covid 19 screen pending, continue isolation precautions Continue dexamethasone, Lovenox Titrate down the FiO2 as tolerated Repeat chest x-ray in a.m. Bedside swallow evaluation We will continue to follow and make further recommendations based on his clinical status I, the cosigning physician, performed a history & physical examination of the patient. Lungs sounds with few scattered rhonchi. Maintaining good O2 saturations in the 90s on 4 L/m per nasal cannula. I discussed the assessment and plan of care with my nurse practitioner, Daniella Zambrano. I attest to the above consultation as dictated by her. Time with Patient: Greater than 30
[2020-07-09 16:33] VITALS: BMI 50.3
[2020-07-09 16:43] LABS: Glucose,Whole Blood 166 mg/dL (75-99)
[2020-07-09 20:47] LABS: Glucose,Whole Blood 206 mg/dL (75-99)
[2020-07-09] MEDS: LOSARTAN 50 MG TAB PO SCH (21:24)
[2020-07-09] MEDS: FENOFIBRATE 160 MG TAB PO SCH (21:24)
[2020-07-09] MEDS: ATORVASTATIN 10 MG TAB PO SCH (21:24)
[2020-07-09] MEDS: SERTRALINE 25 MG TAB PO SCH (21:25)
[2020-07-09] MEDS: MELATONIN 3 MG TABLET PO SCH (21:25)
[2020-07-09] MEDS: MONTELUKAST 10 MG TAB PO SCH (21:25)
[2020-07-09] MEDS: SERTRALINE 100 MG TAB PO SCH (21:25)
--- NOTE | 2020-07-09 21:52 | P.HPIM ---
History of Present Illness H&P Date: 07/09/20 Chief Complaint: Hypoxia Patient is a 34-year-old male with a known history of blood cell silver syndrome, mental retardation, hypertension, diabetes type 2, hyperlipidemia, h ypothyroidism and GERD was brought to the hospital due to shortness of breath and Covid test positive. Patient was also hypoxic with pulse ox dropping down to 80s and was brought to the hospital. Most of the history was taken from the family and medical records. Patient does have cough. Patient did have mild fever at home. Patient otherwise poor historian. Laboratory test showed WBC 5.4, hemoglobin 15.0, platelets 179, absolute lymphocyte counts 0.8, D-dimer 0.7 Potassium 5.2 LDH 1068, CRP 47, pro calcitonin 0.1 Urinalysis showed 4+ glucose otherwise negative for infection. Chest x-ray showed correlate for pneumonia. Stable cardiomegaly. KUB x-ray showed limited due to body habitus. Possible hepatomegaly. Correlate for pneumonia. EKG showed normal sinus rhythm CT of the abdomen pelvis showed moderate fatty infiltration of liver. Clinical correlation for atypical pneumonia is recommended at lung bases. Abdominal hernia anteriorly pubic symphysis which includes urinary bladder.. CTA chest showed no acute PE. Clinical consideration for atypical pneumonia such as coronavirus is recommended patchy infiltrates and densities are present bilaterally. Small nodules are not excluded in the posterior lateral left lung base which will require further follow-up. Review of Systems Complete review of systems could not be obtained from the patient. Past Medical History Past Medical History: Diabetes Mellitus, GERD/Reflux, Hyperlipidemia, Thyroid Disorder Additional Past Medical History / Comment(s): Saw silver syndrome , obesity, mental retardation, diabetes mellitus, hyperlipidemia, acid reflux, hypothyroidism, obesity History of Any Multi-Drug Resistant Organisms: None Reported Past Surgical History: Ear Surgery Past Anesthesia/Blood Transfusion Reactions: Previous Problems w/ Anesthesia Additional Past Anesthesia/Blood Transfusion Reaction / Comment(s): Has clausterphobia. Past Psychological History: No Psychological Hx Reported Additional Psychological History / Comment(s): Has mood swings Smoking Status: Never smoker Past Alcohol Use History: None Reported Past Drug Use History: None Reported - Past Family History Father History Unknown: Yes Family Medical History: No Reported History Mother History Unknown: Yes Family Medical History: No Reported History Medications and Allergies Home Medications Medication Instructions Recorded Confirmed Type Fenofibrate [Lofibra] 160 mg PO DAILY 11/27/17 07/08/20 History Fluticasone Propionate [Flonase 1 spray EA NOSTRIL BID PRN 11/27/17 07/08/20 History Allergy Relief] Glimepiride [Amaryl] 2 mg PO AC-BID 11/27/17 07/08/20 History Levothyroxine Sodium [Synthroid] 75 mcg PO AC-BRKFST 11/27/17 07/08/20 History Montelukast Sodium [Singulair] 10 mg PO DAILY 11/27/17 07/08/20 History Multivitamins, Thera [Multivitamin 2 tab PO QAM 11/27/17 07/08/20 History (formulary)] Omeprazole [PriLOSEC] 20 mg PO QAM 11/27/17 07/08/20 History Pioglitazone [Actos] 15 mg PO QAM 11/27/17 07/08/20 History Propranolol [Inderal] 40 mg PO QAM 11/27/17 07/08/20 History Simvastatin [Zocor] 20 mg PO HS 11/27/17 07/08/20 History metFORMIN HCL ER [Glucophage Xr] 1,000 mg PO QAM 11/27/17 07/08/20 History Albuterol Nebulized [Ventolin 2.5 mg INHALATION RT-QID PRN 07/08/20 07/08/20 History Nebulized] Empagliflozin [Jardiance] 25 mg PO QAM 07/08/20 07/08/20 History Melatonin (Unknown Strength) 1 tab PO HS 07/08/20 07/08/20 History Mv-Min/Vit C/Glut/Lysine/Hc124 3 tab PO QAM 07/08/20 07/08/20 History [Airborne Tablet Chewable] OXcarbazepine [Trileptal] 150 mg PO BID 07/08/20 07/08/20 History OXcarbazepine [Trileptal] 300 mg PO BID 07/08/20 07/08/20 History Olmesartan Medoxomil [Benicar] 40 mg PO DAILY 07/08/20 07/08/20 History Propranolol [Inderal] 20 mg PO DAILY 07/08/20 07/08/20 History Sertraline HCl [Zoloft] 100 mg PO DAILY 07/08/20 07/08/20 History Sertraline [Zoloft] 25 mg PO DAILY 07/08/20 07/08/20 History Allergies Allergy/AdvReac Type Severity Reaction Status Date / Time No Known Allergies Allergy Verified 07/08/20 14:57 Physical Exam Vitals: Vital Signs Temp Pulse Resp BP Pulse Ox 07/09/20 16:00 70 16 07/09/20 12:37 98.1 F 70 16 118/70 93 L 07/09/20 08:00 65 20 07/09/20 04:28 97.5 F L 65 20 131/73 93 L 07/09/20 00:10 98.4 F 83 16 119/56 96 Intake and Output 07/09/20 07/09/20 07/09/20 06:59 14:59 22:59 Intake Total 1490 600 Balance 1490 600 Intake: Intake, IV Titration 900 600 Amount Sodium Chloride 0.9% 1, 900 600 000 ml @ 75 mls/hr IV . [id number] [facility] Rx#:[id number] Oral 590 Other: Voiding Method Toilet Toilet Toilet # Voids 3 3 3 # Bowel Movements 1 1 Weight 92.986 kg PHYSICAL EXAMINATION: Patient is lying in the bed comfortably, no acute distress, awake alert and metally challenged.. HEENT: Normocephalic. Neck is supple. Pupils reactive. Nostrils clear. Oral cavity is moist. Ears reveal no drainage. Neck reveals no JVD, carotid bruits, or thyromegaly. CHEST EXAMINATION: Trachea is central. Symmetrical expansion. Lung zarate clear to auscultation and percussion. CARDIAC: Normal S1, S2 with no gallops. No murmurs ABDOMEN: Soft. Bowel sounds normal. No organomegaly. No abdominal bruits. Extremities: reveal no edema. No clubbing or cyanosis Neurologically awake, alert, with well-coordinated movements. No focal deficits noted Skin: No rash or skin lesions. Psychiatric: Coperative. Musculoskeletal: No joint swelling or deformity. Normal range of motion. Results CBC & Chem 7: 07/08/20 15:08 07/08/20 15:08 Labs: Abnormal Lab Results - Last 24 Hours (Table) 07/08/20 07/09/20 07/09/20 Range/Units 15:08 00:22 11:47 POC Glucose (mg/dL) 117 H 71 L (75-99) mg/dL Procalcitonin 0.10 H (0.02-0.09) ng/mL 07/09/20 07/09/20 Range/Units 16:40 20:30 POC Glucose (mg/dL) 166 H 206 H (75-99) mg/dL Procalcitonin (0.02-0.09) ng/mL Microbiology - Last 24 Hours (Table) 07/08/20 15:08 Blood Culture - Preliminary Blood No Growth after 24 hours Thrombosis Risk Factor Assmnt - DVT/VTE Prophylaxis DVT/VTE Prophylaxis: Pharmacologic Prophylaxis ordered - Choose All That Apply Each Factor Represents 1 point: Obesity (BMI >25), Serious lung disease incl. 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 Plan: Patient will be continued on oxygen via nasal cannula. Monitor respiratory status closely. Continue with COVID-19 isolation with droplet and contact precautions. Patient will be started on dexamethasone and Lovenox. Continue the home medications and insulin sliding scale. Further recommendations based on the clinical course. Time with Patient: Greater than 30
[2020-07-10 06:04] LABS: Basophils % (A) 0 %; Eosinophils % (A) 0 %; HCT 46.9 % (39.0-53.0); HGB 14.5 gm/dL (13.0-17.5); Hypochromasia Slight; Lymphocytes # (A) 1.1 k/uL (1.0-4.8); Lymphocytes % (A) 23 %; MCH 29.7 pg (25.0-35.0); MCHC 30.9 g/dL (31.0-37.0); MCV 95.9 fL (80.0-100.0); Mean Platelet Volume 7.5; Monocytes # (A) 0.4 k/uL (0-1.0); Monocytes % (A) 9 %; Neutrophils # (A) 3.2 k/uL (1.3-7.7); Neutrophils % (A) 66 %; Platelet Count 223 k/uL (150-450); RBC 4.89 m/uL (4.30-5.90); RDW 15.3 % (11.5-15.5); WBC 4.8 k/uL (3.8-10.6)
[2020-07-10 07:36] LABS: Glucose,Whole Blood 69 mg/dL (75-99)
[2020-07-10 08:06] LABS: Glucose,Whole Blood 119 mg/dL (75-99)
[2020-07-10] MEDS: PANTOPRAZOLE 40 MG TABLET PO SCH (08:22)
[2020-07-10] MEDS: LEVOTHYROXINE 75 MCG TAB PO SCH (08:23)
[2020-07-10] MEDS: metFORMIN 500 MG TAB PO SCH ×2 (08:23→20:17)
[2020-07-10] MEDS: dexAMETHasone 2 MG TAB PO SCH (08:23)
[2020-07-10] MEDS: OXcarbazepine 150 MG TAB PO SCH ×2 (08:23→20:20)
[2020-07-10] MEDS: GLIMEPIRIDE 2 MG TAB PO SCH ×2 (08:24→16:59)
[2020-07-10] MEDS: PROPRANOLOL 20 MG TAB PO SCH ×2 (08:24→20:20)
[2020-07-10] MEDS: MULTIVITAMINS, THERA 1 EACH TAB PO SCH (08:24)
[2020-07-10] MEDS: PIOGLITAZONE 15 MG TAB PO SCH (08:24)
[2020-07-10] MEDS: OXcarbazepine 300 MG TAB PO SCH ×2 (08:25→20:20)
[2020-07-10] MEDS: ENOXAPARIN 40 MG/0.4 ML SYRINGE SQ SCH (08:25)
[2020-07-10 09:22] LABS: African American GFR (CKD) 130.5 (60.0-200.0); Anion Gap 7.5 mmol/L (4.00-12.00); BUN/Creat Ratio 24.44 Ratio (12.00-20.00); Calcium 8.7 mg/dL (8.7-10.3); Carbon Dioxide 26.5 mmol/L (21.6-31.8); Non-African American GFR(CKD) 112.6 (60.0-200.0); Potassium 4.7 mmol/L (3.5-5.5)
--- NOTE | 2020-07-10 11:57 | XR ---
EXAMINATION TYPE: XR chest 1V DATE OF EXAM: 07/10/2020 COMPARISON: Prior chest x-ray 07/08/2020 HISTORY: Pneumonia TECHNIQUE: Single frontal view of the chest is obtained. FINDINGS: Bilateral patchy airspace disease is again noted. The heart remains enlarged. No pneumotho rax or pleural effusion. IMPRESSION: Correlate for pneumonia. Stable cardiomegaly.
[2020-07-10 11:58] LABS: Glucose,Whole Blood 126 mg/dL (75-99)
--- NOTE | 2020-07-10 12:44 | P.PN ---
Subjective Patient is a 34-year-old male with a known history of blood cell silver syndrome, mental retardation, hypertension, diabetes type 2, hyperlipidemia, hypothyroidism and GERD was brought to the hospital due to shortness of breath and Covid test positive. Patient was also hypoxic with pulse ox dropping down to 80s and was brought to the hospital. Most of the history was taken from the family and medical records. Patient does have cough. Patient did have mild fever at home. Patient otherwise poor historian. Laboratory test showed WBC 5.4, hemoglobin 15.0, platelets 179, absolute lymphocyte counts 0.8, D-dimer 0.7 Potassium 5.2 LDH 1068, CRP 47, pro calcitonin 0.1 Urinalysis showed 4+ glucose otherwise negative for infection. Chest x-ray showed correlate for pneumonia. Stable cardiomegaly. KUB x-ray showed limited due to body habitus. Possible hepatomegaly. Correlate for pneumonia. EKG showed normal sinus rhythm CT of the abdomen pelvis showed moderate fatty infiltration of liver. Clinical correlation for atypical pneumonia is recommended at lung bases. Abdominal hernia anteriorly pubic symphysis which includes urinary bladder.. CTA chest showed no acute PE. Clinical consideration for atypical pneumonia such as coronavirus is recommended patchy infiltrates and densities are present bilaterally. Small nodules are not excluded in the posterior lateral left lung base which will require further follow-up. 07/10/2020 Patient is presently on Decadron. Patient was evaluated by pulmonary. Patient is still requiring 4 L of oxygen which we will try to wean off. Patient is otherwise feeling okay but easily gets short of breath with minimal exertion. Constitutional: Denied any fatigue denied any fever. Cardio vascular: denied any chest pain, palpitations Gastrointestinal denied any nausea vomiting Pulmonary: Denied any shortness of breath cough Neurologic denied any new focal deficits All inpatient medications were reviewed and appropriate changes in these medications as dictated in the interval history and assessment and plan. Objective - Vital Signs Vital signs: Vital Signs Temp 97.6 F 07/10/20 12:35 Pulse 60 07/10/20 12:35 Resp 19 07/10/20 12:35 BP 101/59 07/10/20 12:35 Pulse Ox 95 07/10/20 12:35 Intake & Output 07/09/20 07/10/20 07/10/20 18:59 06:59 18:59 Intake Total 600 1790 Balance 600 1790 Weight 92.986 kg Intake: Intake, IV Titration 600 900 Amount Sodium Chloride 0.9% 1, 600 900 000 ml @ 75 mls/hr IV . [id number] [facility] Rx#:[id number] Oral 890 Other: Voiding Method Toilet Toilet Toilet Urinal Urinal Incontinent Incontinent # Voids 3 4 1 # Bowel Movements 1 1 - Exam PHYSICAL EXAMINATION: GENERAL: The patient is alert , not in any acute distress. Well developed, well nourished. mentally challenged but pleasant HEENT: Pupils are round and equally reacting to light. EOMI. No scleral icterus. No conjunctival pallor. Normocephalic, atraumatic. No pharyngeal erythema. No thyromegaly. CARDIOVASCULAR: S1 and S2 present. No murmurs, rubs, or gallops. PULMONARY: Chest is clear to auscultation, no wheezing or crackles. ABDOMEN: Soft, nontender, nondistended, normoactive bowel sounds. No palpable organomegaly. MUSCULOSKELETAL: No joint swelling or deformity. EXTREMITIES: No cyanosis, clubbing, or pedal edema. NEUROLOGICAL: Gross neurological examination did not reveal any focal deficits. SKIN: No rashes. Note: Because of [place] [id number] isolation, some of the history and physical exam findings are indirect and obtained from nursing staff, and other physician examinations to avoid unnecessary contact with the patient. - Labs CBC & Chem 7: 07/10/20 05:02 07/10/20 05:02 Labs: Abnormal Lab Results - Last 24 Hours (Table) 07/09/20 07/09/20 07/10/20 Range/Units 16:40 20:30 05:02 MCHC 30.9 L (31.0-37.0) g/dL BUN/Creatinine Ratio (12.00-20.00) Ratio POC Glucose (mg/dL) 166 H 206 H (75-99) mg/dL 07/10/20 07/10/20 07/10/20 Range/Units 05:02 07:11 07:58 MCHC (31.0-37.0) g/dL BUN/Creatinine Ratio 24.44 H (12.00-20.00) Ratio POC Glucose (mg/dL) 69 L 119 H (75-99) mg/dL 07/10/20 Range/Units 11:53 MCHC (31.0-37.0) g/dL BUN/Creatinine Ratio (12.00-20.00) Ratio POC Glucose (mg/dL) 126 H (75-99) mg/dL Microbiology - Last 24 Hours (Table) 07/08/20 15:08 Blood Culture - Preliminary Blood No Growth after 24 hours Assessment and Plan Plan: Acute hypoxic respiratory failure secondary to COVID-19 pneumoniapatient is presently on 4 L of oxygen on Decadron which will be continued Elevated inflammatory markerssecondary to above 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
[2020-07-10] MEDS: SODIUM CHLORIDE 0.9% 1,000 ML IV SCH ×2 (14:22→20:17)
--- NOTE | 2020-07-10 15:51 | P.PN ---
Subjective Progress Note Date: 07/10/20 Principal diagnosis: CoVID 19 pneumonia This is a very pleasant 34-year-old gentleman who is mentally challenged and has a history of Saw Silver syndrome. He also has a history of diabetes mellitus, hyperlipidemia, gastroesophageal reflux disease, hypothyroidism, obesity. He is a lifelong nonsmoker. He was brought into the emergency room yesterday with complaints of shortness of breath cough, congestion and was found to have low oxygen in the 80s. Chest x-ray does reveal reveal areas of bilateral patchy densities. CT angiogram ruled out pulmonary embolism. There is consideration for atypical pneumonia such as coronavirus due to the patchy infiltrates and densities seen bilaterally. Staff reports the patient tested positive for CoVID 19 however the documentation is not available currently. He remains in isolation precautions. He is currently on 4 L nasal cannula to maintain O2 saturations in the low 90s. He is afebrile. Hemodynamically stable. He is seen today in consultation on the medical floor. He is sitting up in bed eating lunch. Swallowing well. White count 5.4. Hemoglobin 15.0. Lymphocytes 0.8. Platelet count 179. D-dimer 0.70. Sodium 137. Potassium 5.2. Creatinine 0.84. LDH 1068. C-reactive protein 47. Pro-calcitonin 0.10. He is continued on dexamethasone, Lovenox. The patient is seen today 07/10/2020 in follow-up on the regular medical floor. He is currently sitting up having breakfast. Awake and alert in no acute distress. Swallowing without difficulty. No cough or congestion. No current fever chills or night sweats. He is maintaining good O2 saturation in the mid 90s on 4 L/m per nasal cannula. Blood culture reveals no growth. White count 4.8. Hemoglobin 14.5. Sodium 140. Potassium 4.7. Creatinine 0.9. Remains on Decadron and Lovenox. Objective - Vital Signs Vital signs: Vital Signs Temp 97.6 F 07/10/20 12:35 Pulse 60 07/10/20 12:35 Resp 19 07/10/20 12:35 BP 101/59 07/10/20 12:35 Pulse Ox 95 07/10/20 12:35 Intake & Output 07/09/20 07/10/20 07/10/20 18:59 06:59 18:59 Intake Total 600 1790 1000 Balance 600 1790 1000 Weight 92.986 kg Intake: Intake, IV Titration 600 900 Amount Sodium Chloride 0.9% 1, 600 900 000 ml @ 75 mls/hr IV . [id number] [facility] Rx#:[id number] Oral 890 1000 Other: Voiding Method Toilet Toilet Toilet Urinal Urinal Incontinent Incontinent # Voids 3 4 3 # Bowel Movements 1 1 - Exam GENERAL EXAM: Alert, pleasant mentally challenged 34-year-old male patient, on 4 L nasal cannula, comfortable in no apparent distress. HEAD: Normocephalic. EYES: Normal reaction of pupils, equal size. NOSE: Clear with pink turbinates. THROAT: No erythema or exudates. NECK: No masses, no JVD. CHEST: No chest wall deformity. LUNGS: Equal air entry with bilateral scattered rhonchi. CVS: S1 and S2 normal with no audible murmur, regular rhythm. ABDOMEN: No hepatosplenomegaly, normal bowel sounds, no guarding or rigidity. SPINE: No scoliosis or deformity SKIN: No rashes CENTRAL NERVOUS SYSTEM: No focal deficits, tone is normal in all 4 extremities. EXTREMITIES: There is no peripheral edema. No clubbing, no cyanosis. Peripheral pulses are intact. - Labs CBC & Chem 7: 07/10/20 05:02 07/10/20 05:02 Labs: Abnormal Lab Results - Last 24 Hours (Table) 07/09/20 07/09/20 07/10/20 Range/Units 16:40 20:30 05:02 MCHC 30.9 L (31.0-37.0) g/dL BUN/Creatinine Ratio (12.00-20.00) Ratio POC Glucose (mg/dL) 166 H 206 H (75-99) mg/dL 07/10/20 07/10/20 07/10/20 Range/Units 05:02 07:11 07:58 MCHC (31.0-37.0) g/dL BUN/Creatinine Ratio 24.44 H (12.00-20.00) Ratio POC Glucose (mg/dL) 69 L 119 H (75-99) mg/dL 07/10/20 Range/Units 11:53 MCHC (31.0-37.0) g/dL BUN/Creatinine Ratio (12.00-20.00) Ratio POC Glucose (mg/dL) 126 H (75-99) mg/dL Microbiology - Last 24 Hours (Table) 07/08/20 15:08 Blood Culture - Preliminary Blood No Growth after 24 hours Assessment and Plan Assessment: 1 Acute hypoxic respiratory failure secondary to CoVID 19 pneumonitis , tested positive at [facility] 2 Saw silver syndrome, Down syndrome and secondarily mentally challenged 3 Obesity 4 Hypothyroidism 5 Hypertension 6 Hyperlipidemia 7 Diabetes mellitus Plan: The patient was seen and evaluated by Dr. Carson Chest x-ray and labs reviewed Continue dexamethasone, Lovenox Titrate down the FiO2 as tolerated We will continue to follow and make further recommendations based on his clinical status I, the cosigning physician, performed a history & physical examination of the patient. Lungs sounds with few scattered rhonchi. Maintaining good O2 saturations in the 90s on 4 L/m per nasal cannula. I discussed the assessment and plan of care with my nurse practitioner, Daniella Zambrano. I attest to the above consultation as dictated by her.
[2020-07-10 16:50] LABS: Glucose,Whole Blood 191 mg/dL (75-99)
[2020-07-10] MEDS: SERTRALINE 100 MG TAB PO SCH (20:17)
[2020-07-10] MEDS: SERTRALINE 25 MG TAB PO SCH (20:17)
[2020-07-10] MEDS: ATORVASTATIN 10 MG TAB PO SCH (20:17)
[2020-07-10] MEDS: FENOFIBRATE 160 MG TAB PO SCH (20:17)
[2020-07-10] MEDS: MELATONIN 3 MG TABLET PO SCH (20:17)
[2020-07-10] MEDS: MONTELUKAST 10 MG TAB PO SCH (20:17)
[2020-07-10 20:20] LABS: Glucose,Whole Blood 202 mg/dL (75-99)
[2020-07-10] MEDS ORDERED: LOSARTAN 50 MG TAB PO SCH ×2 (21:00)
[2020-07-11 04:28] VITALS: RESP 17
[2020-07-11 07:04] LABS: Glucose,Whole Blood 64 mg/dL (75-99)
[2020-07-11 07:20] LABS: Glucose,Whole Blood 59 mg/dL (75-99)
[2020-07-11 07:30] LABS: Glucose,Whole Blood 80 mg/dL (75-99)
[2020-07-11] MEDS: dexAMETHasone 2 MG TAB PO SCH (08:22)
[2020-07-11] MEDS: LEVOTHYROXINE 75 MCG TAB PO SCH (08:23)
[2020-07-11] MEDS: PANTOPRAZOLE 40 MG TABLET PO SCH (08:23)
[2020-07-11] MEDS: PROPRANOLOL 20 MG TAB PO SCH (08:23)
[2020-07-11] MEDS: OXcarbazepine 150 MG TAB PO SCH (08:23)
[2020-07-11] MEDS: MULTIVITAMINS, THERA 1 EACH TAB PO SCH (08:23)
[2020-07-11] MEDS: OXcarbazepine 300 MG TAB PO SCH (08:23)
[2020-07-11] MEDS: ENOXAPARIN 40 MG/0.4 ML SYRINGE SQ SCH (08:23)
[2020-07-11] MEDS: PIOGLITAZONE 15 MG TAB PO SCH (11:26)
[2020-07-11] MEDS: metFORMIN 500 MG TAB PO SCH (11:26)
[2020-07-11] MEDS: GLIMEPIRIDE 2 MG TAB PO SCH (11:26)
[2020-07-11 11:32] LABS: C Reactive Protein 0.9 mg/dL (0.0-0.8)
[2020-07-11 11:41] LABS: Glucose,Whole Blood 141 mg/dL (75-99)
[2020-07-11 12:20] VITALS: BP 106/67; TEMP 98
--- NOTE | 2020-07-11 12:26 | P.PN ---
Subjective Progress Note Date: 07/11/20 Principal diagnosis: CoVID 19 pneumonia This is a very pleasant 34-year-old gentleman who is mentally challenged and has a history of Saw Silver syndrome. He also has a history of diabetes mellitus, hyperlipidemia, gastroesophageal reflux disease, hypothyroidism, obesity. He is a lifelong nonsmoker. He was brought into the emergency room yesterday with complaints of shortness of breath cough, congestion and was found to have low oxygen in the 80s. Chest x-ray does reveal reveal areas of bilateral patchy densities. CT angiogram ruled out pulmonary embolism. There is consideration for atypical pneumonia such as coronavirus due to the patchy infiltrates and densities seen bilaterally. Staff reports the patient tested positive for CoVID 19 however the documentation is not available currently. He remains in isolation precautions. He is currently on 4 L nasal cannula to maintain O2 saturations in the low 90s. He is afebrile. Hemodynamically stable. He is seen today in consultation on the medical floor. He is sitting up in bed eating lunch. Swallowing well. White count 5.4. Hemoglobin 15.0. Lymphocytes 0.8. Platelet count 179. D-dimer 0.70. Sodium 137. Potassium 5.2. Creatinine 0.84. LDH 1068. C-reactive protein 47. Pro-calcitonin 0.10. He is continued on dexamethasone, Lovenox. The patient is seen today 07/10/2020 in follow-up on the regular medical floor. He is currently sitting up having breakfast. Awake and alert in no acute distress. Swallowing without difficulty. No cough or congestion. No current fever chills or night sweats. He is maintaining good O2 saturation in the mid 90s on 4 L/m per nasal cannula. Blood culture reveals no growth. White count 4.8. Hemoglobin 14.5. Sodium 140. Potassium 4.7. Creatinine 0.9. Remains on Decadron and Lovenox. The patient is seen today 07/11/2020 in follow-up on the regular medical floor. He remains awake and alert. He is actually getting herself out of bed. He s tates he is not short of breath. No cough currently. No fever. He is maintaining O2 saturations in the low 90s on 2 L/m per nasal cannula. Blood culture reveals no growth. D-dimer 0.56. Blood glucose 141. LDH 288. C- reactive protein 0.9. He remains on dexamethasone. Objective - Vital Signs Vital signs: Vital Signs Temp 98.0 F 07/11/20 12:19 Pulse 66 07/11/20 12:19 Resp 17 07/11/20 12:19 BP 106/67 07/11/20 12:19 Pulse Ox 93 L 07/11/20 12:19 Intake & Output 07/10/20 07/11/20 07/11/20 18:59 06:59 18:59 Intake Total 1000 Balance 1000 Intake: Oral 1000 Other: Voiding Method Toilet Toilet Urinal Urinal Incontinent Incontinent # Voids 3 3 # Bowel Movements 1 1 - Exam GENERAL EXAM: Alert, pleasant, mentally challenged 34-year-old male patient, on 2 L nasal cannula, comfortable in no apparent distress. HEAD: Normocephalic. EYES: Normal reaction of pupils, equal size. NOSE: Clear with pink turbinates. THROAT: No erythema or exudates. NECK: No masses, no JVD. CHEST: No chest wall deformity. LUNGS: Equal air entry with bilateral scattered rhonchi. CVS: S1 and S2 normal with no audible murmur, regular rhythm. ABDOMEN: No hepatosplenomegaly, normal bowel sounds, no guarding or rigidity. SPINE: No scoliosis or deformity SKIN: No rashes CENTRAL NERVOUS SYSTEM: No focal deficits, tone is normal in all 4 extremities. EXTREMITIES: There is no peripheral edema. No clubbing, no cyanosis. Peripheral pulses are intact. - Labs CBC & Chem 7: 07/10/20 05:02 07/10/20 05:02 Labs: Abnormal Lab Results - Last 24 Hours (Table) 07/10/20 07/10/20 07/11/20 Range/Units 16:23 20:18 07:02 POC Glucose (mg/dL) 191 H 202 H 64 L (75-99) mg/dL Lactate Dehydrogenase (120-246) U/L C-Reactive Protein (0.0-0.8) mg/dL 07/11/20 07/11/20 07/11/20 Range/Units 07:18 07:46 11:38 POC Glucose (mg/dL) 59 L 141 H (75-99) mg/dL Lactate Dehydrogenase 288 H (120-246) U/L C-Reactive Protein 0.9 H (0.0-0.8) mg/dL Microbiology - Last 24 Hours (Table) 07/08/20 15:08 Blood Culture - Preliminary Blood No Growth after 48 hours Assessment and Plan Assessment: 1 Acute hypoxic respiratory failure secondary to CoVID 19 pneumonitis , tested positive at [facility] 2 Saw silver syndrome, Down syndrome and secondarily mentally challenged 3 Obesity 4 Hypothyroidism 5 Hypertension 6 Hyperlipidemia 7 Diabetes mellitus Plan: The patient was seen and evaluated by Dr. Carson Currently stable from the pulmonary standpoint Continue dexamethasone for total of 10 days Titrate down the FiO2 as tolerated We will continue to follow and make further recommendations based on his clinical status I, the cosigning physician, performed a history & physical examination of the patient. Lungs sounds with few scattered rhonchi. Maintaining good O2 saturations in the 90s on 2 L/m per nasal cannula. I discussed the assessment and plan of care with my nurse practitioner, Daniella Zambrano. I attest to the above note as dictated by her.
[2020-07-11 13:30] VITALS: PULSE 72
[2020-07-11] MEDS: SODIUM CHLORIDE 0.9% 1,000 ML IV SCH (14:08)
--- NOTE | 2020-07-11 15:48 | P.DS ---
Providers Date of admission: 07/08/20 16:19 Attending physician: Deepa Grady Consults: 07/08/20 16:18 Consult Physician Urgent Consulting Provider: Gonzalo Carson Reason/Comments: dyspnea Do you want consulting provider notified?: Yes Primary care physician: Domingo Albarran [facility] Course: Patient is a 34-year-old male with a known history of blood cell silver syndrome, mental retardation, hypertension, diabetes type 2, hyperlipidemia, hypothyroidism and GERD was brought to the hospital due to shortness of breath and Covid test positive. Patient was also hypoxic with pulse ox dropping down to 80s and was brought to the hospital. Most of the history was taken from the family and medical records. Patient does have cough. Patient did have mild fever at home. Patient otherwise poor historian. Laboratory test showed WBC 5.4, hemoglobin 15.0, platelets 179, absolute lymphocyte counts 0.8, D-dimer 0.7 Potassium 5.2 LDH 1068, CRP 47, pro calcitonin 0.1 Urinalysis showed 4+ glucose otherwise negative for infection. Chest x-ray showed correlate for pneumonia. Stable cardiomegaly. KUB x-ray showed limited due to body habitus. Possible hepatomegaly. Correlate for pneumonia. EKG showed normal sinus rhythm CT of the abdomen pelvis showed moderate fatty infiltration of liver. Clinical correlation for atypical pneumonia is recommended at lung bases. Abdominal hernia anteriorly pubic symphysis which includes urinary bladder.. CTA chest showed no acute PE. Clinical consideration for atypical pneumonia such as coronavirus is recommended patchy infiltrates and densities are present bilaterally. Small nodules are not excluded in the posterior lateral left lung base which will require further follow-up. 07/10/2020 Patient is presently on Decadron. Patient was evaluated by pulmonary. Patient is still requiring 4 L of oxygen which we will try to wean off. Patient is otherwise feeling okay but easily gets short of breath with minimal exertion. 07/11/2020 Patient is insisting on discharge. If we're able to wean him off oxygen oriented at least able to get him down to 2 L oxygen I'll discharge the patient on for more days of Decadron. Patient blood sugars are low in spite of systemic steroids because of which I'm discontinued pioglitazone patient to be evaluated for need of Amaryl as I believe his blood sugars will go down even more after discussion of Decadron and he may not need this medication at that time. Patient blood pressure is low normal because of which I'm cutting down the losartan dose to around 25 mg. If cleared by pulmonology and if we're able to bring his oxygen requirements down patient will be discharged today. PHYSICAL EXAMINATION: GENERAL: The patient is alert , not in any acute distress. Well developed, well nourished. mentally challenged but pleasant HEENT: Pupils are round and equally reacting to light. EOMI. No scleral icterus. No conjunctival pallor. Normocephalic, atraumatic. No pharyngeal erythema. No thyromegaly. CARDIOVASCULAR: S1 and S2 present. No murmurs, rubs, or gallops. PULMONARY: Chest is clear to auscultation, no wheezing or crackles. ABDOMEN: Soft, nontender, nondistended, normoactive bowel sounds. No palpable organomegaly. MUSCULOSKELETAL: No joint swelling or deformity. EXTREMITIES: No cyanosis, clubbing, or pedal edema. NEUROLOGICAL: Gross neurological examination did not reveal any focal deficits. SKIN: No rashes. Note: Because of COVID 19 isolation, some of the history and physical exam findings are indirect and obtained from nursing staff, and other physician e xaminations to avoid unnecessary contact with the patient. Assessment and Plan Plan: Acute hypoxic respiratory failure secondary to COVID-19 pneumoniapatient is presently on oxygen on Decadron which will be continued until wean it off for discharge. 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 Patient Condition at Discharge: Serious Plan - Discharge Summary Discharge Rx Participant: No New Discharge Prescriptions: New Losartan [Cozaar] 25 mg PO HS #30 tab dexAMETHasone [Hexadrol] 4 mg PO DAILY #4 tab Continue metFORMIN HCL ER [Glucophage Xr] 1,000 mg PO QAM Fenofibrate [Lofibra] 160 mg PO DAILY Simvastatin [Zocor] 20 mg PO HS Montelukast Sodium [Singulair] 10 mg PO DAILY Glimepiride [Amaryl] 2 mg PO AC-BID Omeprazole [PriLOSEC] 20 mg PO QAM Propranolol [Inderal] 40 mg PO QAM Fluticasone Propionate [Flonase Allergy Relief] 1 spray EA NOSTRIL BID PRN PRN Reason: allergies Multivitamins, Thera [Multivitamin (formulary)] 2 tab PO QAM Levothyroxine Sodium [Synthroid] 75 mcg PO AC-BRKFST Albuterol Nebulized [Ventolin Nebulized] 2.5 mg INHALATION RT-QID PRN PRN Reason: Shortness Of Breath OXcarbazepine [Trileptal] 150 mg PO BID Sertraline [Zoloft] 25 mg PO DAILY Sertraline HCl [Zoloft] 100 mg PO DAILY Propranolol [Inderal] 20 mg PO DAILY Melatonin (Unknown Strength) 1 tab PO HS Empagliflozin [Jardiance] 25 mg PO QAM Mv-Min/Vit C/Glut/Lysine/Hc124 [Airborne Tablet Chewable] 3 tab PO QAM OXcarbazepine [Trileptal] 300 mg PO BID Discontinued Pioglitazone [Actos] 15 mg PO QAM Olmesartan Medoxomil [Benicar] 40 mg PO DAILY Discharge Medication List Fenofibrate [Lofibra] 160 mg PO DAILY 11/27/17 [History] Fluticasone Propionate [Flonase Allergy Relief] 1 spray EA NOSTRIL BID PRN 11/03 02/19 [History] Glimepiride [Amaryl] 2 mg PO AC-BID 11/27/17 [History] Levothyroxine Sodium [Synthroid] 75 mcg PO AC-BRKFST 11/27/17 [History] Montelukast Sodium [Singulair] 10 mg PO DAILY 11/27/17 [History] Multivitamins, Thera [Multivitamin (formulary)] 2 tab PO QAM 11/27/17 [History] Omeprazole [PriLOSEC] 20 mg PO QAM 11/27/17 [History] Propranolol [Inderal] 40 mg PO QAM 11/27/17 [History] Simvastatin [Zocor] 20 mg PO HS 11/27/17 [History] metFORMIN HCL ER [Glucophage Xr] 1,000 mg PO QAM 11/27/17 [History] Albuterol Nebulized [Ventolin Nebulized] 2.5 mg INHALATION RT-QID PRN 07/08/20 [History] Empagliflozin [Jardiance] 25 mg PO QAM 07/08/20 [History] Melatonin (Unknown Strength) 1 tab PO HS 07/08/20 [History] Mv-Min/Vit C/Glut/Lysine/Hc124 [Airborne Tablet Chewable] 3 tab PO QAM 07/08/20 [History] OXcarbazepine [Trileptal] 150 mg PO BID 07/08/20 [History] OXcarbazepine [Trileptal] 300 mg PO BID 07/08/20 [History] Propranolol [Inderal] 20 mg PO DAILY 07/08/20 [History] Sertraline HCl [Zoloft] 100 mg PO DAILY 07/08/20 [History] Sertraline [Zoloft] 25 mg PO DAILY 07/08/20 [History] Losartan [Cozaar] 25 mg PO HS #30 tab 07/11/20 [Rx] dexAMETHasone [Hexadrol] 4 mg PO DAILY #4 tab 07/11/20 [Rx] Follow up Appointment(s)/Referral(s): Domingo Brooks III, MD [Primary Care Provider] - 3 Days Discharge Disposition: HOME SELF-CARE
== END 2020-07-11 16:45 | disposition home or self-care (01) | DRG 177 ==
LOC: EC 12:33 → 6NMEDSUR 16:19
PROVIDERS: ADMIT Internal Medicine; ATTEND Internal Medicine
DX: U07.1 COVID-19 (principal); J96.01 Acute respiratory failure with hypoxia; J12.89 Other viral pneumonia; Z68.43 Body mass index [BMI] 50.0-59.9, adult; Q87.19 Other congenital malformation syndromes predominantly associated with short stature; E78.5 Hyperlipidemia, unspecified; E03.9 Hypothyroidism, unspecified; K21.9 Gastro-esophageal reflux disease without esophagitis; I11.9 Hypertensive heart disease without heart failure; K76.0 Fatty (change of) liver, not elsewhere classified; K46.9 Unspecified abdominal hernia without obstruction or gangrene; F79 Unspecified intellectual disabilities; E66.01 Morbid (severe) obesity due to excess calories; E11.9 Type 2 diabetes mellitus without complications; Z79.890 Hormone replacement therapy; Z79.4 Long term (current) use of insulin; Z79.899 Other long term (current) drug therapy; Q90.9 Down syndrome, unspecified; Z98.890 Other specified postprocedural states
CPT/HCPCS: 36415; 71045; 71275; 74018; 74177; 80048; 80053; 81003; 82728; 83605; 83615; 83735; 84145; 84484; 85025; 85379; 85610; 85730; 86140; 87040; 93005; 94640; 96365; 96366; 99285

== ENCOUNTER → 2021-05-14 | Outpatient (CLI) | payer MEDICARE, OTHER | END | disposition home or self-care (01) | LOC: LABWHC1 07:01 → EEVIPCON 07:01 | PROVIDERS: ATTEND Nurse Practitioner Family | DX: Z79.899 Other long term (current) drug therapy (principal) | CPT/HCPCS: 36415; 80183 ==

== ENCOUNTER → 2021-06-22 | Outpatient (CLI) | payer MEDICARE, OTHER ==
[2021-06-22 12:18] LABS: Basophils # (A) 0.05 X 10*3/uL (0.00-0.10); Basophils % (A) 0.7 %; Eosinophils % (A) 1.3 %; HCT 48.4 % (39.6-50.0); HGB 15.2 g/dL (13.0-17.0); Lymphocytes # (A) 1.59 X 10*3/uL (0.90-5.00); Lymphocytes % (A) 20.9 %; MCH 30.2 pg (27.0-32.0); MCHC 31.4 g/dL (32.0-37.0); Mean Platelet Volume 11.2 fL (9.5-12.2); Monocytes # (A) 0.57 X 10*3/uL (0.20-1.00); Monocytes % (A) 7.5 %; Neutrophils # (A) 5.21 X 10*3/uL (1.80-7.70); Neutrophils % (A) 68.7 %; Platelet Count 186 X 10*3/uL (140-440); RBC 5.04 X 10*6/uL (4.40-5.60); WBC 7.59 X 10*3/uL (4.50-10.00)
[2021-06-22 15:33] LABS: ALT 26 U/L (10-49); AST 20 U/L (14-35); Albumin 4.4 g/dL (3.8-4.9); Albumin/Globulin Ratio 1.62 (1.60-3.17); Alkaline Phosphatase 39 U/L (41-126); Bilirubin, Conjugated <0.20 mg/dL (0.20-0.40); Carbon Dioxide 24.9 mmol/L (21.6-31.8); Chloride 100 mmol/L (96-109); Chol/HDL Ratio 6.18 Ratio; Globulin 2.7 g/dL (1.6-3.3); Potassium 4.8 mmol/L (3.5-5.5); Sodium 140 mmol/L (135-145); Total Protein 7.2 g/dL (6.2-8.2)
== END | disposition home or self-care (01) ==
LOC: LABWHC1 08:07
PROVIDERS: ATTEND Nurse Practitioner Family
DX: Z51.81 Encounter for therapeutic drug level monitoring (principal); Z79.899 Other long term (current) drug therapy
CPT/HCPCS: 36415; 80051; 80061; 80076; 80183; 83036; 83721; 85025

== ENCOUNTER → 2021-12-16 | Outpatient (CLI) | payer MEDICARE, OTHER ==
--- NOTE | 2021-12-16 15:07 | CONS ---
CONSULTATION DATE OF SERVICE: 12/16/2021 This 36-year-old male has been evaluated in Sleep Center for possible obstructive sleep apnea-hypopnea syndrome. HISTORY OF PRESENT ILLNESS/SLEEP-WAKE EVALUATION: Patient's usual sleep schedule is from 9 p.m. until 5 a.m. on weekdays and from 9 p.m. to 5 a.m. on weekends. Sometimes he has problems with falling asleep, although there is no TV in the bedroom. He usually sleeps on the back position. He snores and wakes up from sleep several times with episodes of nocturia. During the day he takes one nap around 4 p.m. The patient wakes up tired in the morning after waking up from sleep. [place] Sleepiness Scale is significantly increased at 13. PAST MEDICAL HISTORY: Positive for hypertension, diabetes mellitus, acid reflux, hypothyroidism, anxiety. PAST SURGICAL HISTORY: Tonsillectomy. MEDICATIONS: 1. Montelukast 10 mg once a day. 2. Fenofibrate 160 mg once a day. 3. Olmesartan 40 mg once a day. 4. Simvastatin 20 mg once a day. 5. Glimepiride 2 mg twice a day. 6. Jardiance 25 mg once a day. 7. Pioglitazone mg once a day. 8. Omeprazole 20 mg once a day. 9. Metformin 500 mg twice a day. 10.Levothyroxine 75 mcg once a day. 11.Sertraline oxcarbazepine. 12.Propranolol 20 mg. SOCIAL HISTORY: Negative for smoking or using alcohol. FAMILY HISTORY: Not available. REVIEW OF SYSTEMS: Multiple awakenings from sleep, sleepiness during the day. No fevers. No double vision. No recent chest pain. No shortness of breath. No abdominal pain. No bleeding episodes. No blood in the urine. No seizure episodes. PHYSICAL EXAMINATION: GENERAL: Pleasant 36-year-old male. VITAL SIGNS: BP 118/67, HR 76, RR 20, height 4 feet 6-1/4 inches, weight 201 pounds, body mass index 48.1, temperature 97.1, oxygen saturation at room air 94%. HEENT: PERRLA, EOMI, evaluation of oropharynx showed tongue protrudes midline. Extremely low position of soft palate; Mallampati IV. NECK: Supple, no JVD. Thyroid is not palpable. Neck is wide; 17-1/2 inches in circumference. LUNGS: Clear to percussion and to auscultation. Good air exchange. No wheezing or rhonchi. HEART: S1, S2 regular. No murmurs, gallops, or rubs. ABDOMEN: Obese. EXTREMITIES: No clubbing or cyanosis. MIRROR DEPARTMENT SUPERVISOR: Awake, alert, and oriented X3. Cranial nerves 2 to 7 intact. There is no fasciculation or atrophy. noted. No focal deficits observed. IMPRESSION: 1. Snoring, multiple awakenings from sleep, extremely low position of soft palate, wide neck, 17-1/2 inches in circumference, sleepiness, Simpson Sleepiness Scale of 13; obstructive sleep apnea-hypopnea syndrome. 2. Obesity; body mass index 48.1. 3. Hypertension. 4. Diabetes mellitus. 5. Hyperlipidemia. 6. Acid reflux. 7. Hypothyroidism. 8. Anxiety. 9. Status post tonsillectomy. PLAN: 1. Polysomnography for evaluation of patient's breathing during sleep. 2. CPAP/BiPAP titration if sleep study confirms obstructive sleep apnea-hypopnea syndrome. 3. Preferable position during sleep on the side. 4. I will see patient for follow up visit to explain results of testing and following plan. Thank you very much for referring this patient for consultation. Sincerely, Jeevan Ford MD, PhD, FAASM Diplomat of [place] [employer] Sleep Medicine Board of [place] [employer] Lumber Marker of [facility] [place] MMODL / LORRIN: [id number] /
== END | disposition home or self-care (01) ==
LOC: SLEEP 13:17 → EEVIPCON 13:20
PROVIDERS: ATTEND Internal Medicine
DX: G47.33 Obstructive sleep apnea (adult) (pediatric) (principal); E66.9 Obesity, unspecified; I10 Essential (primary) hypertension; E11.9 Type 2 diabetes mellitus without complications; E78.5 Hyperlipidemia, unspecified; K21.9 Gastro-esophageal reflux disease without esophagitis; E07.9 Disorder of thyroid, unspecified; F41.9 Anxiety disorder, unspecified; Z90.89 Acquired absence of other organs; Z68.42 Body mass index [BMI] 45.0-49.9, adult
CPT/HCPCS: 99211

== ENCOUNTER → 2022-08-03 | Outpatient (CLI) | payer MEDICARE, OTHER ==
--- NOTE | 2022-08-03 15:47 | P.PN ---
Subjective DATE: 08/03/2022 FOLLOW UP VISIT. Patient with obstructive sleep apnea hypopnea syndrome return to sleep center for follow-up visit. Recently patient had sleep study which documented obstructive sleep apnea hypopnea syndrome. Patient was initiated on PAP therapy and today is first visit after treatment was started. I explain results of sleep studies to patient and caregiver in details. Patient was able to use PAP equipment every night for the whole night. The patient does not have significant problems with the mask, PAP pressure and humidification. [place] sleepiness scale is 6, which is normal. I checked information from PAP unit. PAP unit pressure 6-13, average 12.8 cm H2O. Usage is 100 % for more then 4 hours, average 11.8 hours per night. Leak is 19.6 l/m, which is in acceptable range. Apnea Hypopnea Index is 0.5, which is normal. MEDICATIONS:1. Montelucast 10 mg once a day 2. Fenofibrate 160 mg once a day 3. Olmesartan 40 mg once a day 4. Simvastatin 20 mg once a day 5. Omeprazole 20 mg once a day 6. Metformin 500 mg twice a day 7. Jardiance 25 mg once a day 8. Levothyroxine 75 g once a day During physical exam: GENERAL: A patient without significant distress. VITAL SIGNS: BP 116/72, HR 69, RR 18 , weight 203.6, temperature 97, oxygen saturation at room air 95 . HEENT: PERRLA, EOMI.low position of soft palate, Mallapati 4 . NECK: Supple. No JVD. LUNGS: Clear to percussion and to auscultation. Good air exchange. No wheezing or rhonchi. HEART: S1, S2 regular. ABDOMEN: Soft and nontender. Obese EXTREMITIES: No clubbing or cyanosis. CONCRETE PIPE MAKER: Awake, alert, and oriented x3. No focal deficit. Impressions: 1. Severe Obstructive sleep apnea-hypopnea syndrome, apnea-hypopnea index 35.6. Patient demonstrated great compliance with treatment, benefiting from treatment. 2. Obesity. 3. Hypertension. 4. Diabetes mellitus. 5. Hyperlipidemia. 6. Acid reflux. 7. Hypothyroidism. 8. Anxiety. 9. Status post tonsillectomy. Plan: 1. Continue using PAP equipment every night for the whole night. 2. To change air filter at least 1-2 times per month. 3. PAP unit should stay lower then position of the head. 4. Advised patient to remove all remaining water from humidifier canister daily and make it dry after each usage. Refill canister with fresh distilled water before each usage. 5. Sleep hygiene with regular time in bed for at least 8 hours[address] Patient [address]'t [address] 7. I will maintain prescription for PAP supplies including mask, tube, filters. 8. Follow up visit in 6 months or earlier if patient has any problems. 9. Watching and losing weight. Thank you very much for allowing me to participate in the management of your patient. Jeevan Ford MD, PhD, FAASM. Diplomat of [place] [employer], Sleep Medicine Board by [employer] Plumbing And Heating Contractor of [facility] [place]
== END ==
LOC: SLEEP 15:23
PROVIDERS: ATTEND Internal Medicine
DX: G47.33 Obstructive sleep apnea (adult) (pediatric) (principal); Z99.89 Dependence on other enabling machines and devices; E66.9 Obesity, unspecified; I10 Essential (primary) hypertension; E78.5 Hyperlipidemia, unspecified; E11.9 Type 2 diabetes mellitus without complications; K21.9 Gastro-esophageal reflux disease without esophagitis; E03.9 Hypothyroidism, unspecified; F41.9 Anxiety disorder, unspecified; Z98.890 Other specified postprocedural states

== ENCOUNTER → 2023-06-15 | Outpatient (CLI) | payer MEDICARE, OTHER ==
--- NOTE | 2023-06-15 16:42 | P.PN ---
Subjective DATE: 06/15/2023 FOLLOW UP VISIT. Patient with obstructive sleep apnea hypopnea syndrome return to sleep center for follow-up visit. Information from previous visit have been reviewed. Patient is using PAP equipment every night for the whole night, getting PAP supplies in time. The patient does not have significant problems with the mask, PAP unit and humidification. [place] sleepiness scale is 4, which is normal. I checked information from PAP unit. PAP unit pressure 6-13, average 12.7 cm H2O. Usage is 100 % for more then 4 hours, average 11.3 hours per night. Leak is 25 l/m, which is in acceptable range. Apnea Hypopnea Index is 0.7, which is normal. MEDICATIONS:1. Propranolol 60 mg once a day 2. Trileptal 150 mg once a day 3. Zoloft 100 mg tablets at bedtime 4. Albuterol 5. Levothyroxine 75 g 6. Metformin 500 mg twice a day 7. Singulair 10 mg once a day 8. Omeprazole 20 mg once a day During physical exam: GENERAL: A pleasant patient without any distress. VITAL SIGNS: BP 123/80, HR 69, RR 18 , weight 197.6, temperature 97.5, oxygen saturation at room air 94% . HEENT: PERRLA, EOMI.low position of soft palate, Mallapati 4 . NECK: Supple. No JVD. LUNGS: Clear to percussion and to auscultation. Good air exchange. No wheezing or rhonchi. HEART: S1, S2 regular. ABDOMEN: Soft and nontender,slightly obese EXTREMITIES: No clubbing or cyanosis. LATENT PRINT EXAMINER: Awake, alert, and oriented x3. No focal deficit. Impressions: 1. Obstructive sleep apnea-hypopnea syndrome. Patient demonstrated great compliance with treatment, benefiting from treatment. 2. Hypothyroidism. 3. diabetes mellitus. 4. obesity. 5. Hyperlipidemia. 6. Acid reflux. 7. Anxiety. Plan: 1. Continue using PAP equipment every night for the whole night. 2. To change air filter at least 1-2 times per month. 3. PAP unit should stay lower then position of the head. 4. Advised patient to remove all remaining water from humidifier canister daily and make it dry after each usage. Refill canister with fresh distilled water before each usage. 5. Sleep hygiene with regular time in bed for at least 8 hours. 6. Precautions related to driving. No driving if feel any sleepiness. 7. I will maintain prescription for PAP supplies including mask, tube, filters. 8. Watching and losing weight. 9. Follow up visit in 6 months or earlier if patient has any problems. Thank you very much for allowing me to participate in the management of your patient. Jeevan Ford MD, PhD, FAASM. Diplomat of [place] [employer], Sleep Medicine Board by [place] [employer] Learning And Development Officer of [facility] [place]
== END ==
LOC: 3 N SLEEP 14:29
PROVIDERS: ATTEND Internal Medicine
DX: G47.33 Obstructive sleep apnea (adult) (pediatric) (principal); E03.9 Hypothyroidism, unspecified; E11.9 Type 2 diabetes mellitus without complications; E66.9 Obesity, unspecified; E78.5 Hyperlipidemia, unspecified; K21.9 Gastro-esophageal reflux disease without esophagitis; F41.9 Anxiety disorder, unspecified; Z79.84 Long term (current) use of oral hypoglycemic drugs; Z79.899 Other long term (current) drug therapy; Z99.89 Dependence on other enabling machines and devices; Z79.890 Hormone replacement therapy
CPT/HCPCS: 99212

== ENCOUNTER → 2023-12-27 | Outpatient (CLI) | payer MEDICARE, OTHER ==
[2023-12-27 16:15] VITALS: BP 127/79; PULSE 70; RESP 20; TEMP 98.9
--- NOTE | 2023-12-27 17:20 | P.PN ---
Subjective DATE: 12/27/2023 FOLLOW UP VISIT. Patient with obstructive sleep apnea hypopnea syndrome return to sleep center for follow-up visit. Information from previous visit have been reviewed. Patient is using PAP equipment every night for the whole night, getting PAP supplies in time. The patient does not have significant problems with the mask, PAP unit and humidification. [place] sleepiness scale is 7, which is normal. I checked information from PAP unit. PAP unit pressure 6-13, LH 12.7 cm H2O. Usage is 100% for more then 4 hours, average 11 hours per night. Leak is high 41.4 l/m. Apnea Hypopnea Index is 0.7, which is perfect. MEDICATIONS:1. Albuterol 2. Fenofibrate 160 mg once a day 3. Glimepiride 2 mg twice a day 4. Jardiance 2 mg once a day 5. Levothyroxine 75 mcg once a day 6. Metformin 500 mg twice a day 7. Montelukast 10 mg once a day 8. Omeprazole 20 mg once a day 9. Trileptal 10. Zoloft 100 mg 2 tablets at bedtime During physical exam: GENERAL: A pleasant patient without any distress. VITAL SIGNS: Please see below, weight 200.2 pounds. HEENT: PERRLA, EOMI.low position of soft palate, Mallapati 4 . NECK: Supple. No JVD. LUNGS: Clear to percussion and to auscultation. Good air exchange. No wheezing or rhonchi. HEART: S1, S2 regular. ABDOMEN: Soft and nontender. Obese EXTREMITIES: No clubbing or cyanosis. CONTACT MANAGER: Awake, alert, and oriented x3. No focal deficit. Impressions: 1. Obstructive sleep apnea-hypopnea syndrome. Patient demonstrated great compliance with treatment, benefiting from treatment. 2. Obesity, patient is weight down 3 pounds compared with previous visit. 3. Hypothyroidism. 4. Diabetes mellitus. 5. Hyperlipidemia. 6. Acid reflux. 7. Anxiety. Plan: 1. Continue using PAP equipment every night for the whole night. 2. To change air filter at least 1-2 times per month. 3. PAP unit should stay lower then position of the head. 4. Advised patient to remove all remaining water from humidifier canister daily and make it dry after each usage. Refill canister with fresh distilled water before each usage. 5. Sleep hygiene with regular time in bed for at least 8 hours. 6. Precautions related to driving. No driving if feel any sleepiness. 7. I will maintain prescription for PAP supplies including mask, tube, filters. 8. Follow up visit in 6 months or earlier if patient has any problems. 9. Watching and losing weight. Thank you very much for allowing me to participate in the management of your patient. Jeevan Ford MD, PhD, FAASM. Diplomat of [place] [employer], Sleep Medicine Board by [place] [employer] Felt Machine Mechanic of [facility] [place] Objective - Vital Signs Vital signs: Vital Signs Temp 98.9 F 12/27/23 16:12 Pulse 70 12/27/23 16:12 Resp 20 12/27/23 16:12 BP 127/79 12/27/23 16:12 Pulse Ox 94 L 12/27/23 16:12 FiO2 Intake & Output 12/26/23 12/27/23 12/27/23 18:59 06:59 18:59 Weight 90.775 kg
== END ==
LOC: 3 N SLEEP 14:58
PROVIDERS: ATTEND Internal Medicine
DX: G47.33 Obstructive sleep apnea (adult) (pediatric) (principal); E66.9 Obesity, unspecified; E03.9 Hypothyroidism, unspecified; E11.9 Type 2 diabetes mellitus without complications; E78.5 Hyperlipidemia, unspecified; K21.9 Gastro-esophageal reflux disease without esophagitis; F41.9 Anxiety disorder, unspecified; Z79.84 Long term (current) use of oral hypoglycemic drugs; Z79.890 Hormone replacement therapy; Z79.899 Other long term (current) drug therapy; Z99.89 Dependence on other enabling machines and devices
CPT/HCPCS: 99212

== ENCOUNTER → 2024-07-17 | Outpatient (CLI) | payer MEDICARE, OTHER ==
[2024-07-17 16:43] VITALS: BP 112/70; PULSE 68; RESP 18; TEMP 97.4
--- NOTE | 2024-07-17 16:53 | P.PROGSL ---
Subjective DATE: 07/17/2024 FOLLOW UP VISIT. Patient with obstructive sleep apnea hypopnea syndrome return to sleep center for follow-up visit. Information from previous visit have been reviewed. Patient is using PAP equipment every night for the whole night, getting PAP supplies in time. The patient does not have significant problems with the mask, PAP unit and humidification. [place] sleepiness scale is 5, which is normal. I checked information from PAP unit. PAP unit pressure 6-13, average 12.7 cm H2O. Usage is 100% for more then 4 hours, average 11.75 hours per night. Leak is 28.2 l/m, which is in acceptable range. Apnea Hypopnea Index is 0.7, which is normal. MEDICATIONS have been reviewed, please see below. During physical exam: GENERAL: A pleasant patient without any distress. VITAL SIGNS: Please see below, weight is 198 lbs. HEENT: PERRLA, EOMI.low position of soft palate, Mallapati 4 . NECK: Supple. No JVD. LUNGS: Clear to percussion and to auscultation. Good air exchange. No wheezing or rhonchi. HEART: S1, S2 regular. ABDOMEN: Soft and nontender. Obese EXTREMITIES: No clubbing or cyanosis. FLAME BRAZING MACHINE OPERATOR: Awake, alert, and oriented x3. No focal deficit. Impressions: 1. Obstructive sleep apnea-hypopnea syndrome. Patient demonstrated great compliance with treatment, benefiting from treatment. 2. Obesity, patient lost 2 pounds comparing with the previous visit, BMI 51.4. 3. Diabetes mellitus. 4. Hypothyroidism. 5. Hyperlipidemia. 6. Anxiety. 7. Acid reflux. Plan: 1. Continue using PAP equipment every night for the whole night. 2. Sleep hygiene with regular time in bed for at least 7.5-8 hours 3. PAP unit should stay lower then position of the head. 4. Advised patient to remove all remaining water from humidifier canister daily and make it dry after each usage. Refill canister with fresh distilled water before each usage. 5. Watching weight. 6. Precautions related to driving. No driving if feel any sleepiness. 7. I will maintain prescription for PAP supplies including mask, tube, filters. 8. Follow up visit in 8 months or earlier if patient has any problems. Thank you very much for allowing me to participate in the management of your patient. Jeevan Ford MD, PhD, FAASM. Diplomat of [place] [employer] Medicine, Sleep Medicine Board by [place] [employer] Training Generalist of [facility] [place] Objective - Vital Signs Vital Signs: Vital Signs Temp 97.4 F L 07/17/24 16:42 Pulse 68 07/17/24 16:42 Resp 18 07/17/24 16:42 BP 112/70 07/17/24 16:42 Pulse Ox 95 07/17/24 16:42 FiO2 Intake & Output 07/16/24 07/17/24 07/17/24 18:59 06:59 18:59 Weight 89.811 kg Home Medications: Home Medications Medication Instructions Recorded Confirmed Type Fenofibrate [Lofibra] 160 mg PO DAILY 11/27/17 07/17/24 History Fluticasone Propionate [Flonase 1 spray EA NOSTRIL BID PRN 11/27/17 07/17/24 History Allergy Relief] Glimepiride [Amaryl] 2 mg PO AC-BID 11/27/17 07/17/24 History Levothyroxine Sodium [Synthroid] 75 mcg PO AC-BRKFST 11/27/17 07/17/24 History Montelukast Sodium [Singulair] 10 mg PO DAILY 11/27/17 07/17/24 History Multivitamins, Thera [Multivitamin 2 tab PO QAM 11/27/17 07/17/24 History (formulary)] Omeprazole [PriLOSEC] 20 mg PO QAM 11/27/17 07/17/24 History Propranolol [Inderal] 40 mg PO QAM 11/27/17 07/17/24 History Simvastatin [Zocor] 20 mg PO HS 11/27/17 07/17/24 History metFORMIN HCL ER [Glucophage XR] 1,000 mg PO QAM 11/27/17 07/17/24 History Albuterol Nebulized [Ventolin 2.5 mg INHALATION RT-QID PRN 07/08/20 07/17/24 History Nebulized] Empagliflozin [Jardiance] 25 mg PO QAM 07/08/20 07/17/24 History Melatonin (Unknown Strength) 1 tab PO HS 07/08/20 07/17/24 History Mv-Min/Vit C/Glut/Lysine/Hc124 3 tab PO QAM 07/08/20 07/17/24 History [Airborne Tablet Chewable] OXcarbazepine [Trileptal] 150 mg PO BID 07/08/20 07/17/24 History OXcarbazepine [Trileptal] 300 mg PO BID 07/08/20 07/17/24 History Propranolol [Inderal] 20 mg PO DAILY 07/08/20 07/17/24 History Sertraline HCl [Zoloft] 100 mg PO DAILY 07/08/20 07/17/24 History Sertraline [Zoloft] 25 mg PO DAILY 07/08/20 07/17/24 History Losartan [Cozaar] 25 mg PO HS #30 tab 07/11/20 Rx dexAMETHasone ORAL [Hexadrol] 4 mg PO DAILY #4 tab 07/11/20 Rx
== END ==
LOC: 3 N SLEEP 16:01
PROVIDERS: ATTEND Internal Medicine
DX: G47.33 Obstructive sleep apnea (adult) (pediatric) (principal); E66.9 Obesity, unspecified; E11.9 Type 2 diabetes mellitus without complications; E03.9 Hypothyroidism, unspecified; E78.5 Hyperlipidemia, unspecified; F41.9 Anxiety disorder, unspecified; K21.9 Gastro-esophageal reflux disease without esophagitis; Z99.89 Dependence on other enabling machines and devices; Z68.43 Body mass index [BMI] 50.0-59.9, adult; Z79.890 Hormone replacement therapy; Z79.84 Long term (current) use of oral hypoglycemic drugs; Z79.85 Long-term (current) use of injectable non-insulin antidiabetic drugs
CPT/HCPCS: 99212

== ENCOUNTER → 2025-04-02 | Outpatient (CLI) | payer MEDICARE, OTHER ==
[2025-04-02 16:33] VITALS: BP 105/73; PULSE 89; RESP 20; TEMP 97.3
--- NOTE | 2025-04-02 16:45 | P.PROGSL ---
Subjective DATE: 04/02/2025 FOLLOW UP VISIT. Patient with obstructive sleep apnea hypopnea syndrome return to sleep center for follow-up visit. Information from previous visit have been reviewed. Patient is using PAP equipment every night for the whole night, getting PAP supplies in time. The patient does not have significant problems with the mask, PAP unit and humidification. Hazard sleepiness scale is 9, which is borderline normal. I checked information from PAP unit. PAP unit pressure 6-13, average 12.7 cm H2O. Usage is 100% for more then 4 hours, average 11.3 hours per night. Leak is slightly increased to 35 l/m, which is in acceptable range. Apnea Hypopnea Index is 0.8, which is normal. MEDICATIONS have been reviewed, please see below. During physical exam: GENERAL: A pleasant patient without any distress. VITAL SIGNS: Please see below, weight is 200-1.0 lbs. HEENT: PERRLA, EOMI.low position of soft palate, Mallapati 4 . NECK: Supple. No JVD. LUNGS: Clear to percussion and to auscultation. Good air exchange. No wheezing or rhonchi. HEART: S1, S2 regular. ABDOMEN: Soft and nontender.[] EXTREMITIES: No clubbing or cyanosis. 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 No focal deficit. Impressions: 1. Obstructive sleep apnea-hypopnea syndrome. Patient demonstrated great compliance with treatment, benefiting from treatment. 2. Obesity. 3. Diabetes mellitus. 4. Hypothyroidism. 5. Hyperlipidemia. 6. Acid reflux. 7. Anxiety. Plan: 1. Continue using PAP equipment every night for the whole night. 2. Sleep hygiene with regular time in bed for at least 7.5-8 hours 3. PAP unit should stay lower then position of the head. 4. Advised patient to remove all remaining water from humidifier canister daily and make it dry after each usage. Refill canister with fresh distilled water before each usage. 5. Watching weight. 6. Precautions related to driving. No driving if feel any sleepiness. 7. I will maintain prescription for PAP supplies including mask, tube, filters. 8. Follow up visit in 12 months or earlier if patient has any problems. Thank you very much for allowing me to participate in the management of your patient. Jeevan Ford MD, PhD, FAASM. Diplomat of [employer], Sleep Medicine Board by [employer] Nursing Student of [employer] [facility] [employer] Objective - Vital Signs Vital Signs: Vital Signs Temp 97.3 F L 04/02/25 16:25 Pulse 89 04/02/25 16:25 Resp 20 04/02/25 16:25 BP 105/73 04/02/25 16:25 Pulse Ox 96 04/02/25 16:25 FiO2 Home Medications: Home Medications Medication Instructions Recorded Confirmed Type Fenofibrate [Lofibra] 160 mg PO DAILY 11/27/17 07/17/24 History Fluticasone Propionate [Flonase 1 spray EA NOSTRIL BID PRN 11/27/17 07/17/24 History Allergy Relief] Glimepiride [Amaryl] 2 mg PO AC-BID 11/27/17 07/17/24 History Levothyroxine Sodium [Synthroid] 75 mcg PO AC-BRKFST 11/27/17 07/17/24 History Montelukast Sodium [Singulair] 10 mg PO DAILY 11/27/17 07/17/24 History Multivitamins, Thera [Multivitamin 2 tab PO QAM 11/27/17 07/17/24 History (formulary)] Omeprazole [PriLOSEC] 20 mg PO QAM 11/27/17 07/17/24 History Propranolol [Inderal] 40 mg PO QAM 11/27/17 07/17/24 History Simvastatin [Zocor] 20 mg PO HS 11/27/17 07/17/24 History metFORMIN HCL ER [Glucophage XR] 1,000 mg PO QAM 11/27/17 07/17/24 History Albuterol Nebulized [Ventolin 2.5 mg INHALATION RT-QID PRN 07/08/20 07/17/24 History Nebulized] Empagliflozin [Jardiance] 25 mg PO QAM 07/08/20 07/17/24 History Melatonin (Unknown Strength) 1 tab PO HS 07/08/20 07/17/24 History Mv-Min/Vit C/Glut/Lysine/Hc124 3 tab PO QAM 07/08/20 07/17/24 History [Airborne Tablet Chewable] OXcarbazepine [Trileptal] 150 mg PO BID 07/08/20 07/17/24 History OXcarbazepine [Trileptal] 300 mg PO BID 07/08/20 07/17/24 History Propranolol [Inderal] 20 mg PO DAILY 07/08/20 07/17/24 History Sertraline HCl [Zoloft] 100 mg PO DAILY 07/08/20 07/17/24 History Sertraline [Zoloft] 25 mg PO DAILY 07/08/20 07/17/24 History Losartan [Cozaar] 25 mg PO HS #30 tab 07/11/20 Rx dexAMETHasone ORAL [Hexadrol] 4 mg PO DAILY #4 tab 07/11/20 Rx
== END ==
LOC: 3 N SLEEP 16:19
PROVIDERS: ATTEND Internal Medicine
DX: G47.33 Obstructive sleep apnea (adult) (pediatric) (principal); E66.9 Obesity, unspecified; E11.9 Type 2 diabetes mellitus without complications; E03.9 Hypothyroidism, unspecified; E78.5 Hyperlipidemia, unspecified; K21.9 Gastro-esophageal reflux disease without esophagitis; F41.9 Anxiety disorder, unspecified
CPT/HCPCS: 99212